=== PATIENT | male | born 1945 | race Caucasian/White ===

== ENCOUNTER 2019-10-14 23:53 | Observation (INO) | payer OTHER, SELFPAY ==
--- NOTE | ~2019-10-14 | XR_ITS ---
EXAMINATION: XR chest 1V portable DATE: 10/15/2019 00:41 INDICATION: Shortness of breath. TECHNIQUE: A single frontal view of the chest was obtained on 2 radiographs. COMPARISON: Chest single view 05/15/2016 FINDINGS: The lungs are hyperexpanded, consistent with chronic obstructive pulmonary disease. No pleu ral effusion or pneumothorax. The heart size is normal. Median sternotomy wires and mediastinal surgi esvin clips are seen, likely from prior coronary artery bypass grafting. There is a left chest wall pac er with leads in the right atrium and right ventricle. There are surgical clips in the abdomen. IMPRESSION: 1. Hyperexpanded lungs, consistent with chronic obstructive pulmonary disease. Reviewed, dictated and finalized at location A.
[2019-10-14 23:55] VITALS: BP 187/84; PULSE 97; RESP 22; O2SAT 100
[2019-10-15] VITALS (14 sets, daily range): BP systolic 106–141; BP diastolic 40–88; PULSE 80–108; RESP 18–20; TEMP 36.3–36.8; O2SAT 96–99; BMI 20.7
--- NOTE | 2019-10-15 00:11 | ECG_ITS ---
Measurements Intervals Virgie Rate: 64 P: 82 HI: 180 QRS: 52 QRSD: 90 T: 120 QT: 306 QTc: 316 Interpretive Statements SINUS RHYTHM VENTRICULAR PREMATURE COMPLEX LOW QRS VOLTAGE IN LIMB LEADS ANTEROSEPTAL INFARCT, AGE INDETERMINATE NONSPECIFIC ST & T-WAVE ABNORMALITY BASELINE ARTIFACT- I, III, AVR, AVL, AVF, V1-V6 ABNORMAL ECG Electronically Signed On 10-15-2019 8:10:28 CDT by Minh Cisneros D.O.
--- NOTE | 2019-10-15 00:12 | ED.SOB ---
HPI - SOB/Dyspnea General Chief Complaint: Shortness of Breath/Dyspnea Stated Complaint: sob Time Seen by Provider: 10/14/19 23:56 History of Present Illness HPI Narrative: 74 yo male w/ COPD BIBEMS for SOB. SOB for the past few days. Acutely worse this evening. Associated with wheezing. Given albuterol and dexamethasone by EMS with minimal improvement. No pain or fever. History limited by clinical condition. Related Data Home Medications Medication Instructions Recorded Confirmed albuterol sulfate INHALATION QID 10/15/19 albuterol sulfate INHALATION TID PRN 10/15/19 amlodipine 5 mg PO DAILY 10/15/19 aspirin 81 mg PO DAILY 10/15/19 10/15/19 budesonide-formoterol [Symbicort] 2 puff INHALATION BID 10/15/19 levothyroxine 62.5 mcg PO DAILY 10/15/19 lorazepam 0.5 mg PO HS 10/15/19 10/15/19 metoprolol tartrate 25 mg PO DAILY 10/15/19 rosuvastatin mg PO DAILY 10/15/19 Allergies Allergy/AdvReac Type Severity Reaction Status Date / Time metronidazole AdvReac Intermediate Confusion Verified 10/15/19 02:46 Review of Systems Review of Systems: ROS unobtainable: Yes unobtainable due to medical condition Constitutional: Constitutional: Denies fever(s) Cardiovascular: Cardiovascular: Denies chest pain Respiratory: Respiratory: Reports dyspnea and Reports wheezing PMFSH Past Medical History Medical History CAD (coronary artery disease) COPD (chronic obstructive pulmonary disease) Hyperlipidemia Hypertension Hypothyroidism Surgical History Surgical History Hx of CABG Family History Family History Father Acute myocardial infarction Sibling Congestive heart failure Hypertension Sibling Chronic obstructive pulmonary disease Sibling Prostate carcinoma Social History Social History Smoking packs per day: 2 Smoking cigarettes per day: 40.0 Years smoked: 47 Smoking pack-years: 94.00 Smoking status: Former smoker Tobacco type: cigarettes Alcohol intake: current Drinks per week: 14 Substance use: never Spiritual care concerns: No Exam Const: General: alert Orientation/consciousness: patient oriented x3 Other: Moderate distress HENMT: Head: normal to inspection Resp: Effort & Inspection: labored and tachypneic Auscultation: wheezes and diminished lung sounds Cardio: Rate: regular rate Rhythm: regular rhythm GI: GI Palp: Yes Soft to palpation and No Tenderness to palpation present (GI) Skin: General skin exam: normal color Neuro: General: patient oriented x3 and moves all extremities Extrem: General: no pedal edema Course Vital Signs Vital signs: Vital Signs Pulse Rate 97 10/14/19 23:55 Respiratory Rate 22 H 10/14/19 23:55 Blood Pressure 187/84 H 10/14/19 23:55 Pulse Oximetry 100 10/14/19 23:55 Pulse Rate 97 10/14/19 23:55 Respiratory Rate 22 H 10/14/19 23:55 Blood Pressure 187/84 H 10/14/19 23:55 Pulse Oximetry 100 10/14/19 23:55 MDM - SOB/Dyspnea MDM Narrative Medical decision making narrative: Moderate improvement with nebulizer and steroids. Still wheezing and working to breath. I will plan to admit for nebs and steroids. Differential Diagnosis Differential diagnosis: Likely acute exacerbation of chronic obstructive airways disease, congestive heart failure and community acquired pneumonia Medical Records Attestation: I reviewed the patient's medical records. Lab Data Attestation: I reviewed the patient's lab results. Discharge Plan Discharge Clinical Impression: COPD exacerbation Patient Disposition: Still a Patient Condition: Stable Interventions: Discharge Disposition Last Done: 10/15/19 02:21 IV Stop Time Documented Last Done: 10/15/19 02:35 Discharge Date/Time: 10/15/19 02:35
[2019-10-15 00:28] LABS: Basophils Percent Auto 0.6 % (0.2-1.2); Eosinophils Absolute Auto 0.2 K/mm3 (0-0.3); Eosinophils Percent Auto 3.3 % (0-4.4); Hematocrit 47.3 % (42.0-52.0); Hemoglobin 15.9 g/dL (14.0-18.0); Immature Granulocyte Absolute 0.02 K/mm3 (0.00-0.031); Immature Granulocyte Percent A 0.3 % (0-0.5); Lymphocytes Absolute Auto 1.19 K/mm3 (0.9-3.2); Lymphocytes Percent Auto 18.7 % (18.3-44.2); Mean Corpuscular HGB Conc 33.6 g/dl (32-36); Mean Corpuscular Hemoglobin 31.3 pg (26-34); Mean Corpuscular Volume 93.1 fl (80-100); Monocytes Absolute Auto 0.5 K/mm3 (0.1-0.6); Monocytes Percent Auto 7.8 % (2.6-8.5); Neutrophils Absolute Auto 4.4 K/mm3 (1.3-6.7); Neutrophils Percent Auto 69.3 % (45.5-73.1); Platelet Count Result 243 k/mm3 (150-375); Red Blood Count 5.08 M/mm3 (4.6-6.20); Red Cell Distribution Width 13.1 % (11.5-14.5); White Blood Count 6.4 K/mm3 (4.5-10.0)
[2019-10-15] MEDS: ALBUTEROL SULFATE NEB 2.5 MG/0.5 ML INH 10 MG INHALATION (00:30)
[2019-10-15] MEDS: IPRATROPIUM BR 0.02% INH SOLN 0.5 MG/2.5 ML VIAL 1 MG INHALATION (00:30)
[2019-10-15] MEDS: MAGNESIUM SULF 2 GM/WATER 50ML 2 GM/50 ML BAG IVPB (00:36)
[2019-10-15] MEDS: NITROGLYCERIN OINTMENT 1 INCH DOSE TRANSDERM (00:36)
[2019-10-15 00:38] LABS: Anion Gap 14.5 mmol/L (7-16); Blood Urea Nitrogen 18 mg/dL (9-20); Calcium 9.3 mg/dL (8.4-10.2); Carbon Dioxide 29 mmol/L (22-30); Chloride 89 mmol/L (98-107); Estimated CRCL calculation 30 ml/min; Estimated Glomerular Filt Rate 42; Glucose 108 mg/dL (75-110); Potassium 4.5 mmol/L (3.4-5.0); Sodium 128 mmol/L (137-145)
--- NOTE | 2019-10-15 02:33 | ADMGEN ---
This patient, Layton Ayala, was admitted to [facility] Surg Room 301-01. Patient/family oriented to hospital policies and general routines including ID bracelet, bed and alarms, visiting hours, pain management, procedures, bathroom and other care routines, personal items, smoking policy, room service/diet, and visiting hours. Valuables list has been completed. Information on how to activate the Rapid Response Team has been discussed. Patient/Family are encouraged to report perceived risks to care and to ask questions if they do not understand what they are told or what they should do.
--- NOTE | 2019-10-15 03:15 | PM.IMHP ---
H&P: HPI History of Present Illness Chief complaint: COPD excerbation Narrative: This is a pleasant 74 year old male with known COPD who presented to the hospital with a complaint of increased shortness of breath, dry cough, and increased wheezing that started yesterday afternoon. He denies any fevers, chills, or chest pain. The patient was evaluated in the ER and treated with steroids, magnesium, and multiple bronchodilators. He states he feels better but felt like he wasn't good enough to go home yet. Routine labs were obtained which demonstrated mild renal failure otherwise unremarkable. He is a previous smoker and quit over 20 years ago. No other complaints. Review of Systems Review of Systems: All systems reviewed & are unremarkable except as noted in HPI and below PMFSH Past Medical History Medical History CAD (coronary artery disease) COPD (chronic obstructive pulmonary disease) Hyperlipidemia Hypertension Hypothyroidism Surgical History Surgical History Hx of CABG Family History Family History Father Acute myocardial infarction Sibling Congestive heart failure Hypertension Sibling Chronic obstructive pulmonary disease Sibling Prostate carcinoma Social History Social History Smoking packs per day: 2 Smoking cigarettes per day: 40.0 Years smoked: 47 Smoking pack-years: 94.00 Smoking status: Former smoker Tobacco type: cigarettes Alcohol intake: current Drinks per week: 14 Substance use: never Spiritual care concerns: No Meds Home Medications and Allergies Home Medications Medication Instructions Recorded Confirmed Type albuterol sulfate 2 puff INHALATION TID PRN 10/15/19 10/15/19 History albuterol sulfate 2.5 mg INHALATION QID 10/15/19 10/15/19 History amlodipine 5 mg PO DAILY 10/15/19 10/15/19 History aspirin 81 mg PO DAILY 10/15/19 10/15/19 History budesonide-formoterol [Symbicort] 2 puff INHALATION BID 10/15/19 10/15/19 History levothyroxine 62.5 mcg PO DAILY 10/15/19 10/15/19 History lorazepam 0.5 mg PO HS 10/15/19 10/15/19 History metoprolol tartrate 25 mg PO DAILY 10/15/19 10/15/19 History rosuvastatin 5 mg PO DAILY 10/15/19 10/15/19 History Allergies Allergy/AdvReac Type Severity Reaction Status Date / Time metronidazole AdvReac Intermediate Confusion Verified 10/15/19 02:46 Vital Signs Vital Signs - 24 hr 10/14/19 23:55 10/15/19 00:31 10/15/19 01:37 Temperature Pulse Rate 97 103 H 108 H Respiratory Rate 22 H 19 19 Blood Pressure 187/84 H Pulse Oximetry 100 10/15/19 02:21 10/15/19 02:33 Temperature 36.6 C 36.8 C Pulse Rate 105 H 101 H Respiratory Rate 20 20 Blood Pressure 141/88 H 141/62 H Pulse Oximetry 99 96 Exam Const: General: cooperative, alert, awake and anxious Nutritional Appearance: well nourished Orientation/consciousness: patient oriented x3 HENMT: Head: normal to inspection General nose exam: Normal external nose present Face and sinus: normal facial exam Mouth: Yes Normal oral and palatal mucosa present and Yes oropharynx normal Eyes: Pupils: Equal, round and reactive pupils present EOM: EOMs intact bilaterally Neck: Neck: supple and no JVD Thyroid: thyroid normal Lymphatic: lymphadenopathy not noted Resp: Effort & Inspection: normal respiratory effort Auscultation: wheezes throughout and diminished lung sounds Cardio: Rate: tachycardic Rhythm: regular rhythm Heart sounds: no murmurs GI: Inspection: normal to inspection Auscultation: normal bowel sounds Skin: General skin exam: normal color and no rashes or lesions noted Neuro: General: patient oriented x3 Cranial nerves: Yes CN's II-XII intact bilaterally and Yes Equal, round and reactive pupils present Speech: normal speech Motor
[2019-10-15] MEDS: SODIUM CHLORIDE 0.9% IV 1,000 ML 100 ML IV CONT (03:44)
[2019-10-15] MEDS: methylPREDNISolone SOD SUCC 125 MG VIAL 60 MG IV PUSH ×4 (05:30→23:40)
[2019-10-15] MEDS: LEVOTHYROXINE SODIUM 12.5 MCG TABLET PO (05:57)
[2019-10-15] MEDS: LEVOTHYROXINE SODIUM 50 MCG TABLET PO (05:57)
[2019-10-15 06:33] LABS: Basophils Percent Auto 0.2 % (0.2-1.2); Eosinophils Absolute Auto 0.2 K/mm3 (0-0.3); Hematocrit 38.2 % (42.0-52.0); Immature Granulocyte Absolute 0.03 K/mm3 (0.00-0.031); Immature Granulocyte Percent A 0.5 % (0-0.5); Lymphocytes Absolute Auto 0.25 K/mm3 (0.9-3.2); Lymphocytes Percent Auto 4.4 % (18.3-44.2); Mean Corpuscular Hemoglobin 31.2 pg (26-34); Mean Corpuscular Volume 91.6 fl (80-100); Mean Platelet Volume 9.1 fl (7.4-10.4); Monocytes Absolute Auto 0.1 K/mm3 (0.1-0.6); Monocytes Percent Auto 1.1 % (2.6-8.5); Neutrophils Absolute Auto 5.2 K/mm3 (1.3-6.7); Neutrophils Percent Auto 90.8 % (45.5-73.1); Platelet Count Result 228 k/mm3 (150-375); Red Blood Count 4.17 M/mm3 (4.6-6.20); Red Cell Distribution Width 12.8 % (11.5-14.5); White Blood Count 5.7 K/mm3 (4.5-10.0)
[2019-10-15 06:48] LABS: Anion Gap 12.5 mmol/L (7-16); Blood Urea Nitrogen 19 mg/dL (9-20); Calcium 8.2 mg/dL (8.4-10.2); Carbon Dioxide 25 mmol/L (22-30); Chloride 92 mmol/L (98-107); Estimated CRCL calculation 47 ml/min; Estimated Glomerular Filt Rate > 60; Glucose 141 mg/dL (75-110); Magnesium 2.3 mg/dL (1.6-2.3); Potassium 4.5 mmol/L (3.4-5.0); Sodium 125 mmol/L (137-145)
[2019-10-15] MEDS: IPRATROPIUM BR 0.02% INH SOLN 0.5 MG/2.5 ML VIAL INHALATION ×3 (07:29→20:28)
[2019-10-15] MEDS: ALBUTEROL SULFATE NEB 2.5 MG/0.5 ML INH 5 MG INHALATION ×3 (07:29→20:28)
[2019-10-15] MEDS: amLODIPine BESYLATE 5 MG TABLET PO (08:20)
[2019-10-15] MEDS: ROSUVASTATIN 5 MG TABLET PO (08:20)
[2019-10-15] MEDS: ASPIRIN 81 MG ENTERIC TABLET PO (08:21)
[2019-10-15] MEDS: METOPROLOL TARTRATE 25 MG TABLET PO (08:21)
[2019-10-15 10:11] LABS: Sodium 123 mmol/L (137-145)
--- NOTE | 2019-10-15 12:21 | PM.IMPN ---
Progress Note: A&P Assessment and Plan (1) COPD exacerbation: Code(s): J44.1 - Chronic obstructive pulmonary disease with (acute) exacerbation Status: Acute Assessment and Plan: SOB improved. He endorses occasional cough with clear sputum. He is maintaining adequate oxygen saturation on room air. Continue IV solumedrol Supplemental O2 as needed to achieve goal of 90% or above continue bronchodilators (2) Hyponatremia: Code(s): E87.1 - Hypo-osmolality and hyponatremia Status: Acute Assessment and Plan: Sodium was low at presentation and has continued to slowly decline. Upon review of prior labs, this appears to be a chronic issue. Patient states this has been ongoing for sometime and has been instructed to increase his dietary sodium intake by his PCP. He typically drinks 2 cups of coffee and 2-4 beers per day. Continue to monitor sodium q4h. Check urine sodium Discontinue IV fluids Consider fluid restriction if no improvement. Transition from heart healthy diet to regular. (3) Acute renal failure: Qualifiers: Acute renal failure type: unspecified Qualified Code(s): N17.9 - Acute kidney failure, unspecified Code(s): N17.9 - Acute kidney failure, unspecified Status: Acute Assessment and Plan: RODNEY suspected due to dehydration. Renal function improved following IV fluids. IV fluids have been d/c. Continue to monitor renal function closely Renally dose medications and avoid nephrotoxic agents (4) Hypertension: Qualifiers: Hypertension type: unspecified Qualified Code(s): I10 - Essential (primary) hypertension Code(s): I10 - Essential (primary) hypertension Status: Chronic Assessment and Plan: BP reviewed and improved. 111/60 this morning. Continue amlodipine and metoprolol. (5) Hypothyroidism: Qualifiers: Hypothyroidism type: unspecified Qualified Code(s): E03.9 - Hypothyroidism, unspecified Code(s): E03.9 - Hypothyroidism, unspecified Status: Chronic Assessment and Plan: Check TSH Continue Levothyroxine (6) Hyperlipidemia: Qualifiers: Hyperlipidemia type: unspecified Qualified Code(s): E78.5 - Hyperlipidemia, unspecified Code(s): E78.5 - Hyperlipidemia, unspecified Status: Chronic Assessment and Plan: Continue rosuvastatin Subjective Date/time seen: 10/15/19 12:21 Interval history: Date of service: 10/15/2019 He reports he is feeling better today. His shortness of breath has improved. He has occasional cough and occasional clear sputum production. He denies wheezing or orthopnea. He is tolerating room air. He denies chest pain or palpitations. He had a BM this morning. He thinks he has been urinating less often but denies dysuria, hematuria, or dark urine. He says today he has drank 2 cups of coffee and 1 glass of orange juice. He has a good appetite. He denies fever, chills, nausea, vomiting, diarrhea, dizziness, lightheadedness, or weakness. He has no additional concerns. Review of Systems Review of Systems: Narrative: A 12 point review of systems was reviewed with pertinent positives and negatives as per HPI. Exam Narrative: Exam Narrative: Mr. Ayala is examined alone today. He is a well nourished 74 year old male who is lying supine in bed. He appears comfortable and is in NARD. HR 97, BP 111/60, RR 20, T 98.1, 96% on room air. Neuro: awake, alert and oriented x4, speech clear, no focal neuro deficits noted HEENMT: normocephalic, atraumatic, EOMI, sclerae anicteric, moist oral mucosa, tongue midline Neck: supple, no lymphadenopathy Respiratory: diminished lung sounds, diffuse post-expiratory wheezes, nonlabored breathing Cardio: regular rate, regular rhythm with S1-S2 Abdomen: flat, nondistended, evidence of scar tissue from old colostomy, normoactive bowel sounds, soft, nontender
[2019-10-15 14:24] LABS: Sodium 125 mmol/L (137-145)
[2019-10-15 15:46] LABS: Creatinine Urine 68.8 mg/dL
[2019-10-15 15:54] LABS: Sodium Urine Random 35 meq/L
[2019-10-15 19:43] LABS: Sodium 125 mmol/L (137-145)
[2019-10-15] MEDS: ACETAMINOPHEN 325 MG TABLET 650 MG PO (20:26)
[2019-10-15] MEDS: LORazepam 0.5 MG TABLET PO (20:26)
[2019-10-15 23:54] LABS: Sodium 124 mmol/L (137-145)
[2019-10-16] VITALS (9 sets, daily range): BP systolic 106–115; BP diastolic 59; PULSE 82–92; RESP 18; TEMP 36.7–37.1; O2SAT 94–99
[2019-10-16] MEDS: IPRATROPIUM BR 0.02% INH SOLN 0.5 MG/2.5 ML VIAL INHALATION ×3 (01:56→13:29)
[2019-10-16] MEDS: ALBUTEROL SULFATE NEB 2.5 MG/0.5 ML INH 5 MG INHALATION ×3 (01:56→13:29)
[2019-10-16] MEDS: LEVOTHYROXINE SODIUM 12.5 MCG TABLET PO (05:32)
[2019-10-16] MEDS: LEVOTHYROXINE SODIUM 50 MCG TABLET PO (05:32)
[2019-10-16] MEDS: methylPREDNISolone SOD SUCC 125 MG VIAL 60 MG IV PUSH ×2 (05:33→11:55)
[2019-10-16 06:25] LABS: Hematocrit 35.1 % (42.0-52.0); Hemoglobin 12.2 g/dL (14.0-18.0); Mean Corpuscular HGB Conc 34.8 g/dl (32-36); Mean Corpuscular Hemoglobin 31.4 pg (26-34); Mean Corpuscular Volume 90.5 fl (80-100); Platelet Count Result 202 k/mm3 (150-375); Red Blood Count 3.88 M/mm3 (4.6-6.20); Red Cell Distribution Width 12.8 % (11.5-14.5); White Blood Count 9.1 K/mm3 (4.5-10.0)
[2019-10-16 06:44] LABS: Anion Gap 11.4 mmol/L (7-16); Blood Urea Nitrogen 20 mg/dL (9-20); Calcium 8.3 mg/dL (8.4-10.2); Carbon Dioxide 24 mmol/L (22-30); Chloride 95 mmol/L (98-107); Estimated CRCL calculation 66 ml/min; Estimated Glomerular Filt Rate > 60; Glucose 155 mg/dL (75-110); Potassium 4.4 mmol/L (3.4-5.0); Sodium 126 mmol/L (137-145)
[2019-10-16] MEDS: ASPIRIN 81 MG ENTERIC TABLET PO (08:42)
[2019-10-16] MEDS: amLODIPine BESYLATE 5 MG TABLET PO (08:43)
[2019-10-16] MEDS: METOPROLOL TARTRATE 25 MG TABLET PO (08:43)
[2019-10-16] MEDS: ROSUVASTATIN 5 MG TABLET PO (08:43)
[2019-10-16 11:01] LABS: Sodium 125 mmol/L (137-145)
--- NOTE | 2019-10-16 14:10 | PM.DS ---
DS: Admitting Diagnosis Admitting Diagnosis Admitting Diagnosis: Chronic obstructive pulmonary disease with (acute) exacerbation DS: Discharge Diagnosis Discharge Diagnosis (1) COPD exacerbation: Code(s): J44.1 - Chronic obstructive pulmonary disease with (acute) exacerbation Status: Acute Assessment and Plan: Started on IV solumedrol and bronchodilators. He maintained adequate oxygenation on room air and did not require supplemental O2 upon admission. SOB improved. He will continue a PO prednisone taper and his inhalers. (2) Hyponatremia: Code(s): E87.1 - Hypo-osmolality and hyponatremia Status: Acute Assessment and Plan: Upon review of prior labs and discussion with PCP, this appears to be a chronic issue. Urine sodium was 35. Sodium levels remained stable upon discontinuation of IV fluids. He was placed on 1500 ml fluid restriction which he will continue. Repeat BMP in 5 days. (3) Acute renal failure: Qualifiers: Acute renal failure type: unspecified Qualified Code(s): N17.9 - Acute kidney failure, unspecified Code(s): N17.9 - Acute kidney failure, unspecified Status: Acute Assessment and Plan: Most likely secondary to dehydration. Renal function improved following IV fluids. Back to baseline. (4) Hypertension: Qualifiers: Hypertension type: unspecified Qualified Code(s): I10 - Essential (primary) hypertension Code(s): I10 - Essential (primary) hypertension Status: Chronic Assessment and Plan: BP was monitored and was stable. Continue amlodipine and metoprolol. (5) Hypothyroidism: Qualifiers: Hypothyroidism type: unspecified Qualified Code(s): E03.9 - Hypothyroidism, unspecified Code(s): E03.9 - Hypothyroidism, unspecified Status: Chronic Assessment and Plan: Continue Levothyroxine. (6) Hyperlipidemia: Qualifiers: Hyperlipidemia type: unspecified Qualified Code(s): E78.5 - Hyperlipidemia, unspecified Code(s): E78.5 - Hyperlipidemia, unspecified Status: Chronic Assessment and Plan: Continue rosuvastatin. DS: Summary Hospital Course Reason for hospitalization: Dyspnea Hospital Course: Date of admission: 10/15/2019 Date of discharge: 10/16/2019 Layton Ayala is a 74 year old male with a history of CAD, HTN, HLD, COPD with former smoking history 94 pack years who presented to the emergency department on 10/15/2019 with complaints of SOB. He noticed he was becoming more short of breath several days prior along with dry cough, and on the evening of presentation his breathing worsened and he began wheezing. At presentation, spO2 100% on 3L, HR 97, RR 22, BP 187/84, WBC 6.4, Na 128, K 4.5, BUn 18, Cr 1.6, and CXR showing hyperexpanded lungs consistent with COPD. He was treated with IV steroids, bronchodilators, and magnesium in the ED. He was admitted to the hospitalist service. His SOB improved significantly. He was tolerating room air. Given his improvement, he was anxious for discharge and was felt to no longer require inpatient care. He was comfortable with returning home. He will continue a steroid taper. He was educated on medication changes and worrisome signs and symptoms for which to return. We also discussed monitoring his fluid intake to help control his sodium levels. He was discharged home in hemodynamically stable condition on 10/16/2019. Status at Discharge Functional status at discharge: independent ambulation Overall status at discharge: patient is progressing back to baseline Time Spent with Patient Time attestation: Total time spent providing and/or coordinating discharge services:38 minutes Time spent: Greater than 30 minutes Exam Narrative: Exam Narrative: Mr. Ayala is examined alone today. He is a well nourished 74 year old male who is lying supine in bed. He appears comfortable and is in NARD. HR 86, BP 115/89, R
== END 2019-10-16 14:43 | disposition home or self-care (01) ==
LOC: ANHED 10-15 02:11 → ANH3MEDSUR 10-15 02:19
PROVIDERS: Physician Assistant; Admitting Provider Family Medicine; Emergency Provider Emergency Medicine; PCP Family Medicine; Visit Provider Internal Medicine
DX: J44.1 Chronic obstructive pulmonary disease with (acute) exacerbation (principal); Z87.891 Personal history of nicotine dependence; I25.10 Atherosclerotic heart disease of native coronary artery without angina pectoris; I10 Essential (primary) hypertension; E03.9 Hypothyroidism, unspecified; E78.5 Hyperlipidemia, unspecified; Z95.1 Presence of aortocoronary bypass graft; N17.9 Acute kidney failure, unspecified; E87.1 Hypo-osmolality and hyponatremia
CPT/HCPCS: 36415; 71045; 80048; 82570; 83735; 84295; 84300; 85025; 85027; 93005; 94640; 96361; 96365; 96375; 96376; 99285; A9270; G0378; J2930; J3475; J7030

== ENCOUNTER 2020-05-23 08:23 | Outpatient (CLI) | payer OTHER, SELFPAY ==
--- NOTE | ~2020-05-23 | CT_ITS ---
EXAMINATION: CT lung screening EXAM DATE: 05/23/2020 09:09 INDICATION: Z87.891 - Personal history of nicotine dependence TECHNIQUE: Spiral low dose CT of the chest without contrast. Axial, coronal and sagittal images were reviewed. The dose-length product (DLP) for this examination was 69.83 mGy-cm. The exposure was ta ilored according to patient size (auto mA exposure control), and iterative reconstruction (ASIR) was used as additional dose reduction technique. There is no prior study for comparison. FINDINGS: Severe emphysema and hyperinflation with narrow cardiac silhouette. There is 3 mm right lo wer lobe nodule image 105. There is calcified left lower lobe granuloma. Tracheobronchial tree is pat ent. There is no mediastinal, hilar or axillary lymphadenopathy. There are no pleural or pericard ial effusions. There is no pneumothorax. There are sternotomy wires, and cardiac/coronary surgica l changes. Correlate with prior history. 2-lead pacemaker/AICD device. There is 1 cm left liver lobe cyst. Left upper quadrant surgical clips. No osteoblastic or osteolytic lesions identified. There a re old left rib fractures. Incidental aberrant right subclavian artery, a congenital variant. IMPRESSION: Lung-RADS category 2, benign appearance or behavior (<1% chance of malignancy); recommend continued LDCT screening in 1 year. Reviewed, dictated and finalized at location A. ICITY MANAGER
== END 2020-05-23 08:24 | disposition home or self-care (01) ==
PROVIDERS: PCP Internal Medicine; Visit Provider Internal Medicine
DX: Z12.2 Encounter for screening for malignant neoplasm of respiratory organs (principal); Z87.891 Personal history of nicotine dependence
CPT/HCPCS: 71271

== ENCOUNTER 2020-05-27 09:09 | Outpatient (CLI) | payer OTHER, SELFPAY ==
--- NOTE | ~2020-05-27 | US_ITS ---
EXAMINATION: US aorta [facility] DATE: 05/27/2020 10:39 INDICATION: Abdominal aortic aneurysm screening. TECHNIQUE: Grayscale, color Doppler, and pulsed Doppler images of the aorta and common iliac arteries were obtained. COMPARISON: CT abdomen 04/23/2005 FINDINGS: The aorta demonstrates a 3.4 cm fusiform juxtarenal aneurysm. The right common iliac artery is normal in caliber. The left common iliac artery is normal in caliber. IMPRESSION: 1. 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 Reviewed, dictated and finalized at location A. ESSION PRINTER
== END 2020-05-27 09:10 | disposition home or self-care (01) ==
PROVIDERS: PCP Internal Medicine; Visit Provider Internal Medicine
DX: Z13.6 Encounter for screening for cardiovascular disorders (principal); Z87.891 Personal history of nicotine dependence; I71.4 Abdominal aortic aneurysm, without rupture
CPT/HCPCS: 76706

== ENCOUNTER → 2021-04-07 00:47 | Outpatient (CLI) | payer OTHER, SELFPAY ==
[2021-04-08 18:17] LABS: SARS-CoV-2 RNA PCR Positive
== END ==
PROVIDERS: PCP Internal Medicine; Visit Provider Specialist
DX: U07.1 COVID-19 (principal)
CPT/HCPCS: C9803; U0003; U0005

== ENCOUNTER 2021-05-26 02:21 | Day surgery (SDC) | payer OTHER, SELFPAY ==
[2021-04-06 14:35] VITALS: BMI 22.4
[2021-05-25 09:16] VITALS: BMI 23.8
[2021-05-26 09:52] VITALS: BP 178/87; PULSE 67; RESP 18; TEMP 36.6; O2SAT 99; BMI 23.8
[2021-05-26 10:14] LABS: Prothrombin Time 12.6 Seconds (11.1-14.7)
[2021-05-26 10:16] LABS: Basophils Percent Auto 0.6 % (0.2-1.2); Eosinophils Absolute Auto 0.2 K/mm3 (0-0.3); Eosinophils Percent Auto 3.4 % (0-4.4); Hematocrit 44.9 % (42.0-52.0); Hemoglobin 15.2 g/dL (14.0-18.0); Immature Granulocyte Absolute 0.01 K/mm3 (0.00-0.031); Immature Granulocyte Percent A 0.2 % (0-0.5); Lymphocytes Absolute Auto 0.97 K/mm3 (0.9-3.2); Lymphocytes Percent Auto 19.4 % (18.3-44.2); Mean Corpuscular HGB Conc 33.9 g/dl (32-36); Mean Corpuscular Volume 97.6 fl (80-100); Monocytes Absolute Auto 0.5 K/mm3 (0.1-0.6); Monocytes Percent Auto 10.2 % (2.6-8.5); Neutrophils Absolute Auto 3.3 K/mm3 (1.3-6.7); Neutrophils Percent Auto 66.2 % (45.5-73.1); Platelet Count Result 243 k/mm3 (150-375); Red Cell Distribution Width 13.4 % (11.5-14.5)
--- NOTE | 2021-05-26 10:36 | WPDMODSED ---
Moderate Sedation Note-Pt Data Patient Data Diagnosis: Sick sinus syndrome with permanent cardiac pacemaker at LISA Coronary artery disease with previous surgical revascularization Present Complaint: None Procedure to be performed/Plan: Pacemaker generator change Allergies Allergy/AdvReac Type Severity Reaction Status Date / Time metronidazole AdvReac Intermediate Confusion Verified 05/26/21 09:31 Home Medications Medication Instructions Recorded Confirmed Type albuterol sulfate 2.5 mg INHALATION QID 10/15/19 05/19/21 History aspirin 81 mg PO DAILY 10/15/19 05/19/21 History metoprolol tartrate 25 mg tablet 25 mg PO DAILY #90 tablet 01/09/21 05/19/21 Rx amlodipine 5 mg tablet 5 mg PO DAILY #90 tablet 02/21/21 05/19/21 Rx mirtazapine 15 mg tablet 15 mg PO QHS #90 tablet 03/03/21 05/19/21 Rx levothyroxine 125 mcg tablet See Rx Instructions .ROUTE 03/20/21 05/19/21 Rx .COMPLEX #45 tablet rosuvastatin 5 mg tablet See Rx Instructions .ROUTE 03/20/21 05/19/21 Rx .COMPLEX #90 tablet mag citrate-potassium citrate 2 cap PO DAILY 04/06/21 05/19/21 History budesonide 160 mcg-glycopyr 9 2 inh INHALATION BID #10.7 g 04/10/21 05/26/21 Rx mcg-formot 4.8 mcg/actuation HFA inhaler albuterol sulfate 90 mcg/actuation 2 puff INHALATION TID PRN #8.5 g 05/10/21 05/26/21 Rx aerosol inhaler Sedation/Anesthesia: No previous sedation/anesthesia problems (including family history). [facility] Past Medical History Medical History CAD (coronary artery disease) Colostomy stenosis COPD (chronic obstructive pulmonary disease) Decreased urine stream Heart attack Hyperlipidemia Hypertension Hypothyroidism Pacemaker Surgical History Surgical History History of bowel resection History of heart bypass surgery Hx of CABG Family History Family History Father Acute myocardial infarction Sibling Congestive heart failure Hypertension Sibling Chronic obstructive pulmonary disease Sibling Prostate carcinoma Mother Cancer Hypertension Grandparent Heart disease Social History Social History Smoking packs per day: 2 Smoking cigarettes per day: 40.0 Years smoked: 47 Smoking pack-years: 94.00 Smoking status: Former smoker Tobacco type: cigarettes Alcohol intake: current Drinks per week: 28 Alcohol use details: Beer Substance use: never Substance use type: does not use Living arrangements: with family Spiritual care concerns: No Mod Sed Physical Exam Physical Exam Pre Procedural Exam: Normal: Appearance, Throat, Airway, Lungs, Heart Size, Heart Rate, Heart Rhythm and Extremities Hours since solid foods: 12 Hours since liquid intake: 12 Mallampati Classification: class II Internal Medicine - PN: Obj Da Vital Signs Vital Signs: Vital Signs - 24 hr 05/26/21 09:52 Temperature 36.6 C Pulse Rate 67 Respiratory Rate 18 Blood Pressure 178/87 H Pulse Oximetry 99 Labs CBC & Chem 7: 05/26/21 09:50 Labs: Laboratory Results - last 24 hr 05/26/21 05/26/21 09:50 09:50 WBC 5.0 RBC 4.60 Hgb 15.2 D Hct 44.9 MCV 97.6 MCH 33.0 MCHC 33.9 RDW 13.4 Plt Count 243 MPV 9.0 Immature Gran % (Auto) 0.2 Neut % (Auto) 66.2 Lymph % (Auto) 19.4 [place] % (Auto) 10.2 H Eos % (Auto) 3.4 Baso % (Auto) 0.6 Lymph # (Auto) 0.97 [place] # (Auto) 0.5 Eos # (Auto) 0.2 Baso # (Auto) 0.0 Abs Immat Gran (auto) 0.01 Absolute Neuts (auto) 3.3 Absolute Nucleated RBC 0.0 Nucleated RBC % 0.0 PT 12.6 INR 1.0 ASA Classification/Sedation ASA Classification/Sedation ASA Class: III Emergent: No Risks: Risks, benefits and alternatives explained and patient/family accepted plan for sedation. Patient re-evaluated immediately
--- NOTE | 2021-05-26 10:43 | PM.IMHP ---
H&P: HPI History of Present Illness Date/Time: 05/26/21 10:43 Chief Complaint: No complaint Narrative: This is a 76-year-old man who has coronary artery disease as well as sick sinus syndrome. He underwent revascularization with a circumflex infection in the remote past. He then presented back in August of 2011 with symptomatic bradycardia, pauses and evidence of sick sinus syndrome. He received a permanent dual-chamber [employer] pacemaker at that time and the device has been functioning well since then. In routine office follow-up the device has been found to be at LISA. His other significant comorbidity is severe COPD for previous history of smoking for close to 50 years. Patient has no complaints this morning is admitted electively for pacemaker generator change. Review of Systems Constitutional: Constitutional: Reports no additional constitutional complaints Eyes: Eyes: Reports no additional eye complaints ENT: Reports system reviewed and no additional complaints, except as documented Cardiovascular: Cardiovascular: Reports no additional cardiovascular complaints Respiratory: Respiratory: Reports dyspnea on exertion Gastrointestinal: Gastrointestinal: Reports no additional gastrointestinal complaints Musculoskeletal: Musculoskeletal: Reports arthralgias Integumentary/Breasts: Skin/Breast: Reports system reviewed and no additional complaints, except as docu Neurologic: Reports system reviewed and no additional complaints, except as documented PMFSH Past Medical History Medical History CAD (coronary artery disease) Colostomy stenosis COPD (chronic obstructive pulmonary disease) Decreased urine stream Heart attack Hyperlipidemia Hypertension Hypothyroidism Pacemaker Surgical History Surgical History History of bowel resection History of heart bypass surgery Hx of CABG Family History Family History Father Acute myocardial infarction Sibling Congestive heart failure Hypertension Sibling Chronic obstructive pulmonary disease Sibling Prostate carcinoma Mother Cancer Hypertension Grandparent Heart disease Social History Social History Smoking packs per day: 2 Smoking cigarettes per day: 40.0 Years smoked: 47 Smoking pack-years: 94.00 Smoking status: Former smoker Tobacco type: cigarettes Alcohol intake: current Drinks per week: 28 Alcohol use details: Beer Substance use: never Substance use type: does not use Living arrangements: with family Spiritual care concerns: No Meds Home Medications and Allergies Home Medications Medication Instructions Recorded Confirmed Type albuterol sulfate 2.5 mg INHALATION QID 10/15/19 05/19/21 History aspirin 81 mg PO DAILY 10/15/19 05/19/21 History metoprolol tartrate 25 mg tablet 25 mg PO DAILY #90 tablet 01/09/21 05/19/21 Rx amlodipine 5 mg tablet 5 mg PO DAILY #90 tablet 02/21/21 05/19/21 Rx mirtazapine 15 mg tablet 15 mg PO QHS #90 tablet 03/03/21 05/19/21 Rx levothyroxine 125 mcg tablet See Rx Instructions .ROUTE 03/20/21 05/19/21 Rx .COMPLEX #45 tablet rosuvastatin 5 mg tablet See Rx Instructions .ROUTE 03/20/21 05/19/21 Rx .COMPLEX #90 tablet mag citrate-potassium citrate 2 cap PO DAILY 04/06/21 05/19/21 History budesonide 160 mcg-glycopyr 9 2 inh INHALATION BID #10.7 g 04/10/21 05/26/21 Rx mcg-formot 4.8 mcg/actuation HFA inhaler albuterol sulfate 90 mcg/actuation 2 puff INHALATION TID PRN #8.5 g 05/10/21 05/26/21 Rx aerosol inhaler Allergies Allergy/AdvReac Type Severity Reaction Status Date / Time metronidazole AdvReac Intermediate Confusion Verified 05/26/21 09:31 Vital Signs Vital Signs - 24 hr 05/26/21 09:52 Temperature 36.6 C Pulse Rate 67 Respiratory Rate 18
--- NOTE | 2021-05-26 11:40 | ECG_ITS ---
Measurements Intervals [place] Rate: 75 P: 113 SC: 244 QRS: -74 QRSD: 86 T: 89 QT: 388 QTc: 436 Interpretive Statements ELECTRONIC ATRIAL PACEMAKER MARKED LEFT AXIS DEVIATION [QRS AXIS < -30] ANTERIOR MYOCARDIAL INFARCTION , OLD COMPARED TO ECG 10/15/2019 00:02:15 LEFT-AXIS DEVIATION NOW PRESENT Electronically Signed On 05-26-2021 15:59:26 ROOMING HOUSE OPERATOR by Gaurav Wheeler M.D.
--- NOTE | 2021-05-26 11:43 | P.PCNCC_ITS ---
Cardiac Cath Procedure Note Date of procedure:: 05/26/21 Performing physician:: Gaurav Wheeler MD Indication:: pacemaker at LISA Brief clinical history:: this is a 76-year-old man with coronary disease and sick sinus syndrome. He has a dual-chamber pacemaker implanted 10 years ago because of symptomatic sick sinus syndrome. The device is at LISA he is admitted today as an outpatient for elective generator change Procedure Procedure performed:: explant depleted pulse generator implant new dual-chamber pulse generator Sedation/Medication given:: fentanyl 25 mg Versed 2 mg Access site:: chronically implanted pacemaker pocket in the left anterior chest wall Estimated blood loss:: 20 CC Procedure note:: patient was brought to the cardiac catheterization lab in postabsorptive state the pacemaker pocket in the left anterior chest wall was prepped and draped in the normal sterile fashion. The patient was then draped and 1% lidocaine was infiltrated in the region of the chronically implanted device. Incision was then made over the device just below the original incision. Electrocautery was used to provide cutaneous hemostasis and the PlasmaBlade was used to dissect the subcutaneous tissue to the level of the fibrous pocket. This was then incised using a Metzenbaum scissors and the device was exposed. Some of the fibrous capsule was excised to facilitate removal of the device. The retention suture was then also cut. Following this the device was removed from the pocket and was found to be visually intact and unremarkable in appearance. The device was disconnected from the implanted leads using the supplied torque wrench. Leads were then connected in new device using the same torque wrench device. The pocket was then irrigated with Ancef infused saline. The entire assembly was then placed back into the pocket which was closed in layers using 3-0 Vicryl in an interrupted fashion the subcutaneous tissue and 4-0 Vicryl in a running subcuticular fashion for the skin. The wound was dressed with a Aquacel dressing patient was taken back to the holding area for post generator change recovery. Procedure was well tolerated and uncomplicated. Findings:: The explanted device is a [employer] dual-chamber pacemaker [id number] serial number [id number]. originally implanted 09/06/2011. The new device is a [employer] dual-chamber pacemaker model PM 2272, serial number [id number]. device is programmed in the DDD mode. Lower rate limit 70 upper rate limit 130. The chronically implanted atrial lead is a [employer] bipolar lead model serial number [id number] the P-waves are sensed at greater than 5 mV threshold 0.5 volts pacing impedance 400 Ohms the chronically implanted ventricular lead is a [employer] bipolar lead model 58 serial number [id number]. the R-waves are sensed at greater than 12 mV threshold is 1.25 volts pacing impedance 540 Ohms. Conclusion:: 1. Successful uncomplicated explantation of depleted permanent pulse generator 2. successful uncomplicated implantation of new permanent [employer] dual-chamber pulse generator for ongoing treatment of sick sinus syndrome is 76-year-old man who also has coronary artery disease. Gaurav Wheeler MD [facility]
[2021-05-26 12:00] VITALS: BP 156/72; PULSE 88; RESP 14; O2SAT 98
[2021-05-26 12:15] VITALS: BP 118/77; PULSE 81; RESP 16; O2SAT 99
[2021-05-26 12:30] VITALS: BP 133/88; PULSE 81; RESP 17; O2SAT 99
[2021-05-26 12:45] VITALS: BP 145/90; PULSE 88; RESP 20; O2SAT 98
== END 2021-05-26 13:20 | disposition home or self-care (01) ==
PROVIDERS: PCP Internal Medicine; Visit Provider Specialist
PROC: 0JPT0PZ Removal of Cardiac Rhythm Related Device from Trunk Subcutaneous Tissue and Fascia, Open Approach (ICD-10-PCS; CPT 33228; principal; 2021-05-26 10:30)
DX: Z45.010 Encounter for checking and testing of cardiac pacemaker pulse generator [battery] (principal); I25.10 Atherosclerotic heart disease of native coronary artery without angina pectoris; J44.9 Chronic obstructive pulmonary disease, unspecified; I10 Essential (primary) hypertension; E78.5 Hyperlipidemia, unspecified; E03.9 Hypothyroidism, unspecified; Z95.1 Presence of aortocoronary bypass graft; Z90.49 Acquired absence of other specified parts of digestive tract; Z87.891 Personal history of nicotine dependence; Z79.51 Long term (current) use of inhaled steroids; Z79.82 Long term (current) use of aspirin
CPT/HCPCS: 33228; 36415; 85025; 85610; C1785; J0690; J2250; J3010; J7040

== ENCOUNTER 2021-07-06 06:16 | Inpatient (IN) | payer OTHER, SELFPAY ==
[2021-07-06] VITALS (50 sets, daily range): BP systolic 122–216; BP diastolic 70–96; PULSE 75–133; RESP 18–30; TEMP 36.3–36.9; O2SAT 92–100; BMI 24.4
--- NOTE | ~2021-07-06 | XR_ITS ---
EXAMINATION: XR abdomen NG/feed tube insert DATE: 07/09/2021 13:10 INDICATION: Nasogastric tube placement. TECHNIQUE: A supine view of the abdomen was obtained. COMPARISON: Abdomen radiograph 04/21/16 FINDINGS: The lower abdomen is excluded. The nasogastric tube tip is in the stomach. The endotracheal tube tip is 5.9 cm above the seth. There are surgical clips in left abdomen. IMPRESSION: 1. Nasogastric tube tip in the stomach. Reviewed, dictated and finalized at location A.
--- NOTE | ~2021-07-06 | XR_ITS ---
EXAMINATION: XR chest 1V portable DATE: 07/09/2021 06:22 INDICATION: Shortness of breath. TECHNIQUE: A single frontal view of the chest was obtained on 2 radiographs. COMPARISON: Chest single view 07/06/2021, chest CT 05/23/2020 FINDINGS: The lungs are hyperexpanded, consistent with emphysema. A calcified left lung nodule is con sistent with old granulomatous disease. No pneumonia, pleural effusion, or pneumothorax. The heart si ze is normal. Median sternotomy wires and mediastinal surgical clips are seen, likely from prior kenna nary artery bypass grafting. There is a left chest wall pacer with leads in the right atrium and righ t ventricle. There is an old healed right rib fracture. IMPRESSION: 1. Severe emphysema. Reviewed, dictated and finalized at location A. IMPRESSION: 1. Severe emphysema.
--- NOTE | ~2021-07-06 | XR_ITS ---
EXAMINATION: XR chest 1V portable EXAM DATE: 07/14/2021 05:57 INDICATION: Resp Failure. TECHNIQUE: Portable AP frontal chest x-ray was obtained. Comparison is made to prior examination from 07/13/2021. FINDINGS: PICC line tip suspected at mid SVC level, adequate. Sternotomy wires are present without fi ndings to suggest sternal dehiscence. There is a dual lead pacemaker/AICD seen with leads projecting over the expected locations of the right atrial appendage and right ventricle obscuring. Endotracheal tube is in position. Feeding tube tip and side-port extends below diaphragm. It is possible that the tip is projecting cep halad toward the gastroesophageal junction but still below the diaphragm. Chronic hyperinflation. No confluent consolidation, pneumothorax or pleural effusion suspected. Cardi omediastinal silhouette is normal. IMPRESSION: 1. Line, tubes in position. 2. Chronic hyperinflation. Reviewed, dictated and finalized at location A.
--- NOTE | ~2021-07-06 | XR_ITS ---
EXAMINATION: XR chest ET placement DATE: 07/09/2021 13:10 INDICATION: Intubation. TECHNIQUE: A single frontal view of the chest was obtained. COMPARISON: Chest single view at 6:07 AM FINDINGS: There are lucencies in the lungs, consistent with emphysema. There is mild atelectasis at t he lung bases. No pleural effusion or pneumothorax. The heart size is normal. Median sternotomy wires and mediastinal surgical clips are seen, likely from prior coronary artery bypass grafting. The endo tracheal tube tip is 4.0 cm above the seth. There is a left chest wall pacer with leads in the righ t atrium and right ventricle. The nasogastric tube tip is in the superior mediastinum. There are old healed right rib fractures. IMPRESSION: 1. Severe emphysema and mild atelectasis at the lung bases. Reviewed, dictated and finalized at location A.
--- NOTE | ~2021-07-06 | CT_ITS ---
EXAMINATION: CT chest high resolution wo co DATE: 07/15/2021 12:39 INDICATION: pneumonia, respiratory failure TECHNIQUE: Computed tomography (CT) of the chest was performed without intravenous contrast. Addition al 3D reconstructions utilizing coronal maximum intensity projection (MIP) were performed. Automated exposure control and iterative reconstruction technique were employed. The dose-length product was 56 0.58 mGy-cm. COMPARISON: 05/23/2020 FINDINGS: Endotracheal tube tip 5.1 cm above the seth. Nasogastric tube coiled in the stomach. Right upper ex tremity peripherally inserted central venous catheter (PICC) tip at the mid superior vena cava. Delia re emphysema. Numerous tiny centrilobular nodules in groundglass opacities in place with tree-in-bud appearance in the left lower lobe and to a significantly lesser degree in the right lower lobe suspic ious for endobronchial spread of disease either aspiration or pneumonia. No pulmonary edema, pleural effusion or pneumothorax. Heart size is normal. Atherosclerotic coronary artery calcifications. No pe ricardial effusion. Dual-lead cardiac pacemaker with lead tips at the right atrial appendage and apex of the right ventricle. Atherosclerotic calcifications along the normal caliber thoracic aorta. 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 No pathologically enlarged thoracic lymp hadenopathy. A few splenic calcifications consistent with old granulomatous disease. The visualized u pper abdomen is otherwise unremarkable. Body wall edema at the bilateral flanks. IMPRESSION: 1. Mild centrilobular disease in the bilateral lower lobes which could be due to aspiration and/or pn eumonia. 2. Severe emphysema. Reviewed, dictated and finalized at location A. IMPRESSION: 1. Mild centrilobular disease in the bilateral lower lobes which could be due t o aspiration and/or pneumonia. 2. Severe emphysema.
--- NOTE | ~2021-07-06 | XR_ITS ---
EXAMINATION: XR abdomen NG/feed tube rechec DATE: 07/13/2021 09:48 INDICATION: Orogastric tube repositioning. TECHNIQUE: A semiupright view of the abdomen was obtained. COMPARISON: Abdomen radiograph at 8:09 AM FINDINGS: The lower abdomen is excluded. There are surgical clips in the abdomen. The nasogastric tub e tip is in the stomach. Median sternotomy wires and mediastinal surgical clips are seen, likely from prior coronary artery bypass grafting. There are pacer wires in right atrium and right ventricle. IMPRESSION: 1. Nasogastric tube tip in the stomach. Reviewed, dictated and finalized at location B.
--- NOTE | ~2021-07-06 | XR_ITS ---
EXAMINATION: XR chest 1V portable DATE: 07/15/2021 06:00 INDICATION: Respiratory failure. COPD exacerbation. TECHNIQUE: frontal view of the chest was obtained. COMPARISON: Chest radiograph dated 07/14/2021 FINDINGS: Endotracheal tube tip 5.5 cm above the seth. Nasogastric tube extends below the left hemidiaphragm with distal tip collimated off the study. Right upper extremity peripherally inserted central venous catheter (PICC) tip at the mid superior vena cava. Lungs are hyperexpanded but clear with no focal airspace opacities, pulmonary edema, pleural effusion or pneumothorax. The cardiomediastinal silhouette is normal. Dual lead pacemaker seen with leads pro jecting over the expected locations of the right atrium and right ventricle. Median sternotomy wir es and mediastinal surgical clips are seen, likely from prior coronary artery bypass grafting. IMPRESSION: 1. No acute cardiopulmonary disease. Reviewed, dictated and finalized at location A.
--- NOTE | ~2021-07-06 | XR_ITS ---
XR chest 1V portable DATE: 07/20/2021 15:06 INDICATION: Shortness of breath TECHNIQUE: Portable AP chest on 07/20/2021 at 1455 hours COMPARISON: 07/19/2021 portable AP chest FINDINGS: Bilateral hyperinflation suggesting COPD. No pulmonary infiltrate or consolidation, pleural effusion or pulmonary vascular congestion or pneumothorax is evident. Normal heart size. Status post sternotomy and coronary artery bypass graft surgery. Left-sided transvenous pacemaker device with right atrial and right ventricular leads. Feeding tube in proximal stomach Right upper extremity PIC catheter tip overlies superior vena cava Diffuse osteopenia. IMPRESSION: Bilateral hyperinflation; no active cardiac pulmonary disease Status post sternotomy/CABG Dual-lead left-sided pacemaker device Bilateral hyperinflation Osteopenia Feeding tube in proximal stomach Right upper cavity PICC catheter at superior vena cava Reviewed, dictated and finalized at location A.
--- NOTE | ~2021-07-06 | XR_ITS ---
EXAMINATION: XR chest 1V portable DATE: 07/19/2021 05:59 INDICATION: Chronic obstructive pulmonary disease exacerbation. TECHNIQUE: A single frontal view of the chest was obtained. COMPARISON: Chest single view 07/18/2021, chest CT 07/15/2021 FINDINGS: The lungs are hyperexpanded with lucencies, consistent with emphysema. There is mild atelec tasis in the lower lung zones. No pleural effusion or pneumothorax. The heart size is normal. Median sternotomy wires and mediastinal surgical clips are seen, likely from prior coronary artery bypass gr afting. There is a left chest wall pacer with leads in the right atrium and right ventricle. A right upper extremity peripherally inserted central venous catheter (PICC) is seen with tip in the superior vena cava. There are old healed right rib fractures. IMPRESSION: 1. Mild atelectasis in the lower lung zones. 2. Severe emphysema. Reviewed, dictated and finalized at location A.
--- NOTE | ~2021-07-06 | XR_ITS ---
EXAMINATION: XR chest 1V portable DATE: 07/16/2021 05:38 INDICATION: Respiratory failure. COPD exacerbation. TECHNIQUE: frontal view of the chest was obtained. COMPARISON: Chest radiograph and CT dated 07/15/2021 FINDINGS: Endotracheal tube tip 5.2 cm above the seth. Nasogastric tube coiled in the body of the stomach. Hyperexpansion of lungs consistent with emphysema better appreciated on prior CT. No focal airspace o pacities, pulmonary edema, pleural effusion or pneumothorax. The cardiomediastinal silhouette is norm al. Median sternotomy wires, ostial markers and mediastinal surgical clips consistent with prior kenna nary artery bypass grafting. Dual lead pacemaker seen with leads projecting over the expected locatio ns of the right atrium and right ventricle. IMPRESSION: 1. Emphysema. 2. The mild centrilobular lung disease evident on prior CT remains indiscernible on plain radiographs . Reviewed, dictated and finalized at location A. IMPRESSION: 1. Emphysema. 2. The mild centrilobular lung disease evident on prior CT remains indiscernibl e on plain radiographs.
--- NOTE | ~2021-07-06 | XR_ITS ---
EXAMINATION: XR fl Dobhoff insert/rad w img DATE: 07/19/2021 12:10 INDICATION: Dysphagia. TECHNIQUE: I placed a nasoenteric tube under fluoroscopic guidance. Fluoroscopy exposure time was 1.3 minutes. The number of images was 1. COMPARISON: None. FINDINGS: The nasoenteric tube tip is in the stomach. IMPRESSION: 1. Fluoroscopy guided nasoenteric tube placement with tip in the stomach. Reviewed, dictated and finalized at location A.
--- NOTE | ~2021-07-06 | XR_ITS ---
EXAMINATION: XR chest 1V portable DATE: 07/18/2021 06:04 INDICATION: Respiratory failure. TECHNIQUE: A single frontal view of the chest was obtained. COMPARISON: Chest single view 07/17/2021 FINDINGS: The lungs are hyperexpanded with lucencies, consistent with emphysema. There are mild airsp toby opacities at the lung bases. No pleural effusion or pneumothorax. The heart size is normal. Media n sternotomy wires and mediastinal surgical clips are seen, likely from prior coronary artery bypass grafting. There is a left chest wall pacer with leads in the right atrium and right ventricle. A righ t upper extremity peripherally inserted central venous catheter (PICC) is seen with tip in the superi or vena cava. IMPRESSION: 1. Mild airspace opacities at the lung bases, likely atelectasis. 2. Severe emphysema. Reviewed, dictated and finalized at location A.
--- NOTE | ~2021-07-06 | XR_ITS ---
EXAMINATION: XR chest 1V portable EXAM DATE: 07/12/2021 05:58 INDICATION: Resp Failure TECHNIQUE: Portable AP frontal chest x-ray was obtained. Comparison is made to prior examination from 07/11/2021. FINDINGS: Right-sided PICC line, again tip overlies 2 cardiac pacemaker leads and is therefore poorl y visualized but heading in expected direction. Endotracheal and nasogastric tubes are adequately pos itioned. Sternotomy wires are present without findings to suggest sternal dehiscence. There is chronic hyperi nflation unchanged with narrow cardiac silhouette. No confluent consolidation, pneumothorax or pleura l effusion suspected. There are no osseous abnormalities identified. IMPRESSION: Chronic hyperinflation. Tubes, line in position. Reviewed, dictated and finalized at location A.
--- NOTE | ~2021-07-06 | XR_ITS ---
EXAMINATION: XR chest 1V portable EXAM DATE: 07/11/2021 05:56 INDICATION: Respiratory failure. TECHNIQUE: Portable AP frontal chest x-ray was obtained. Comparison is made to prior examination from 07/10/2021. FINDINGS: There is a dual lead pacemaker/AICD seen with leads projecting over the expected locations of the right atrial appendage and right ventricle. Sternotomy wires are present without findings to s uggest sternal dehiscence. There is a right-sided PICC line in position. Endotracheal tube in positio n. Chronic hyperinflation unchanged with narrow cardiac silhouette. No confluent consolidation, pneumoth orax or pleural effusion suspected. There are no osseous abnormalities identified. IMPRESSION: Chronic hyperinflation. Tubes, line in position. Reviewed, dictated and finalized at location A.
--- NOTE | ~2021-07-06 | XR_ITS ---
EXAMINATION: XR chest 1V portable EXAM DATE: 07/13/2021 05:39 INDICATION: Resp Failure . TECHNIQUE: Portable AP frontal chest x-ray was obtained. Comparison is made to prior examination from 09/11/2021. FINDINGS: Sternotomy wires are present without findings to suggest sternal dehiscence. There is a afia l lead pacemaker/AICD seen with leads projecting over the expected locations of the right atrial appe ndage and right ventricle obscuring tip of a right-sided PICC line. Endotracheal tube is in position. Feeding tube tip and side-port extends below diaphragm. It is possible that the tip is now projecting cephalad into the gastroesophageal junction. Chronic hyperinflation. No confluent consolidation, pneumothorax or pleural effusion suspected. Cardi omediastinal silhouette is normal. IMPRESSION: 1. Nasogastric tube extending into stomach, tip could be extending back into gastroesophageal juncti on. 2. Chronic hyperinflation. Reviewed, dictated and finalized at location A. IMPRESSION: 1. Nasogastric tube extending into stomach, tip could be extending back into g astroesophageal junction. 2. Chronic hyperinflation.
--- NOTE | ~2021-07-06 | XR_ITS ---
EXAMINATION: XR chest PICC line EXAM DATE: 07/10/2021 11:01 INDICATION: PICC line placement TECHNIQUE: 2 frontal portable chest x-rays were obtained. Compared to prior study from earlier same d ate. FINDINGS: There is a new right-sided PICC line, tip suboptimally visualized due to overlying cardiac pacemaker leads, but likely above the cavoatrial junction, adequate. Endotracheal tube and feeding t ube are in position. There is some chronic hyperinflation with narrow cardiac silhouette. No pneumoth orax or pleural effusion. No confluent consolidation. Sternotomy wires. There are no osseous abnormal ities identified. IMPRESSION: 1. Tubes, right PICC line in position. 2. Chronic hyperinflation. Reviewed, dictated and finalized at location A.
--- NOTE | ~2021-07-06 | XR_ITS ---
EXAMINATION: XR chest 1V portable DATE: 07/17/2021 05:26 INDICATION: Respiratory failure. TECHNIQUE: A single frontal view of the chest was obtained. COMPARISON: Chest single view 07/16/2021, chest CT 07/15/2021 FINDINGS: The lungs are hyperexpanded with lucencies, consistent with emphysema. There are mild airsp toby opacities in left lower lung zone. No pleural effusion or pneumothorax. The heart size is normal. Median sternotomy wires and mediastinal surgical clips are seen, likely from prior coronary artery b ypass grafting. There is a left chest wall pacer with leads in the right atrium and right ventricle. The endotracheal tube tip is 6.6 cm above the seth. The nasogastric tube tip is beyond the inferior margin of the radiograph, but at least to the stomach. A right upper extremity peripherally inserted central venous catheter (PICC) is seen with tip in the superior vena cava. IMPRESSION: 1. Stable mild airspace opacities at left lower lung zone, consistent with atelectasis versus pneumon ia. 2. Severe emphysema. Reviewed, dictated and finalized at location A. IMPRESSION: 1. Stable mild airspace opacities at left lower lung zone, consistent with atel ectasis versus pneumonia. 2. Severe emphysema.
--- NOTE | ~2021-07-06 | XR_ITS ---
EXAMINATION: XR barium swallow modified DATE: 07/19/2021 12:07 INDICATION: Dysphagia. TECHNIQUE: The patient was given barium-containing material of multiple consistencies to swallow by lien kaiser speech pathologist while I performed fluoroscopy. Dose-area product was 2.1 Gy-cm2. 2.1 minutes fluoroscopy time FINDINGS: Oral Stage: Within normal limits Pharyngeal Phase: Reduced laryngeal elevation Reduced laryngeal adduction Significant vallecular residue Laryngeal penetration with suspected aspiration Cervical/Esophageal Stage: Within functional limits IMPRESSION: Modified esophagram findings as above. Please refer to the speech therapy report for spec ific recommendations. Reviewed, dictated and finalized at Location A. Reviewed, dictated and finalized at location A. IMPRESSION: Modified esophagram findings as above. Please refer to the speech t herapy report for specific recommendations.
--- NOTE | ~2021-07-06 | XR_ITS ---
EXAMINATION: XR chest 1V portable INDICATION: Extreme shortness of breath TECHNIQUE: Portable AP chest at 0702 hours COMPARISON: 10/15/2019 FINDINGS: The lungs are hyperinflated but free of acute opacities. There is no pleural effusion or pn eumothorax. Median sternotomy wires and mediastinal surgical clips are seen, likely from prior stephens ry artery bypass grafting. The heart size is normal. A dual-lead cardiac pacemaker of the left chest wall ends with leads in expected locations. There are surgical clips of the left upper quadrant. IMPRESSION: 1. Hyperinflation without acute cardiopulmonary abnormality. Reviewed, dictated and finalized at location A.
--- NOTE | ~2021-07-06 | XR_ITS ---
EXAMINATION: XR abdomen NG/feed tube insert DATE: 07/13/2021 08:20 INDICATION: Orogastric tube placement. TECHNIQUE: An upright view of the abdomen was obtained. COMPARISON: Abdomen radiograph 07/09/2021, chest CT 05/23/2020 FINDINGS: The lower abdomen is excluded. The nasogastric tube tip is in the stomach. There are surgic al clips in the abdomen. There are pacer wires in right atrium and right ventricle. Median sternotomy wires and mediastinal surgical clips are seen, likely from prior coronary artery bypass grafting. IMPRESSION: 1. Nasogastric tube tip in the stomach. Reviewed, dictated and finalized at location B.
--- NOTE | ~2021-07-06 | US_ITS ---
EXAMINATION: US venous doppler UE DATE: 07/14/2021 11:17 INDICATION: Left upper limb swelling. TECHNIQUE: Grayscale images without and with compression and Doppler images of the left upper extremi ty veins were obtained. COMPARISON: None. FINDINGS: The left internal jugular vein, subclavian vein, axillary vein, brachial vein, basilic vein, cephalic vein, radial vein, and ulnar vein are patent. IMPRESSION: 1. Patent left upper extremity veins. No evidence of venous thrombosis. Reviewed, dictated and finalized at location A.
--- NOTE | ~2021-07-06 | XR_ITS ---
EXAMINATION: XR chest 1V portable EXAM DATE: 07/10/2021 06:02 INDICATION: Respiratory failure. TECHNIQUE: Portable AP frontal chest x-ray was obtained. Comparison is made to prior examination from 07/09/2021. FINDINGS: Sternotomy wires are present without findings to suggest sternal dehiscence. There is a afia l lead pacemaker/AICD seen with leads projecting over the expected locations of the right atrial appe ndage and right ventricle. Feeding tube and endotracheal tube are in position. There is chronic hyper inflation. There is no pneumothorax suspected. No confluent consolidation. No sizable pleural effusio n. IMPRESSION: 1. Chronic hyperinflation. 2. No confluent consolidation. 3. Tubes in position. Reviewed, dictated and finalized at location A.
--- NOTE | 2021-07-06 06:22 | ECG_ITS ---
Measurements Intervals [place] Rate: 108 P: 90 MO: 182 QRS: -40 QRSD: 97 T: 83 QT: 319 QTc: 429 Interpretive Statements SINUS TACHYCARDIA MARKED LEFT AXIS DEVIATION [QRS AXIS < -30] ANTEROSEPTAL MYOCARDIAL INFARCTION , OF INDETERMINATE AGE [40+ ms Q WAVE IN V1-V4] ABNORMAL ECG COMPARED TO ECG 05/26/2021 12:19:31 SINUS TACHYCARDIA NOW PRESENT Electronically Signed On 07-06-2021 16:52:19 CDT by Colby Bryson M.D.
--- NOTE | 2021-07-06 06:24 | ED.SOB ---
HPI - SOB/Dyspnea General Chief Complaint: Shortness of Breath/Dyspnea <Ravinder Conley DO - Last Filed: 07/06/21 07:14> Stated Complaint: difficulty breathing <Ravinder Conley DO - Last Filed: 07/06/21 07:14> Time Seen by Provider: 07/06/21 06:22 <Ravinder Conley DO - Last Filed: 07/06/21 07:14> Source: patient and EMS <Ravinder Conley DO - Last Filed: 07/06/21 07:14> RN notes reviewed <Mya Burns MD - Last Filed: 07/06/21 16:08> Mode of arrival: EMS <Ravinder Conley DO - Last Filed: 07/06/21 07:14> Limitations: no limitations <Ravinder Conley DO - Last Filed: 07/06/21 07:14> History of Present Illness HPI Narrative: 76-year-old male presents to the emergency room by EMS secondary to severe shortness of breath. He got underlying history of COPD. States he has had just a mild cough the last couple days but woke up during the night extremely short of breath and could not get relief when he had to call 911. Patient has extensive medical history including hypertension, four-vessel coronary artery bypass graft secondary coronary artery disease, recent generator change for his pacemaker, as well as COPD. Quit smoking 22 years ago. He did not get vaccinated for COVID but states he tested positive for COVID in March 2021. He does not wear oxygen at home and when EMS picked him up his O2 saturation was 90%. Patient was given 10 mg of Decadron by EMS. They attempted to give him a breathing treatment but he could not tolerate it. <Ravinder Conley DO - Last Filed: 07/06/21 07:14> Related Data Home Medications: Home Medications Medication Instructions Recorded Confirmed aspirin 81 mg PO DAILY 10/15/19 07/06/21 mag citrate-potassium citrate 2 cap PO DAILY 04/06/21 07/06/21 levothyroxine 62.5 mcg PO DAILY 07/06/21 07/06/21 rosuvastatin 5 mg PO DAILY 07/06/21 07/06/21 <Ravinder Conley DO - Last Filed: 07/06/21 07:14> Allergies/Adverse Reactions: Allergies Allergy/AdvReac Type Severity Reaction Status Date / Time metronidazole AdvReac Intermediate Confusion Verified 05/26/21 09:31 <Ravinder Conley DO - Last Filed: 07/06/21 07:14> Review of Systems Review of Systems: CONSTITUTIONAL: Denies fever, chills, or sweats. EYES: Denies visual changes, redness, or discharge. ENT: Denies rhinorrhea, congestion, sore throat, or otalgia. CARDIOVASCULAR: Denies chest pain, palpitations, or edema. RESPIRATORY: Patient is noted be extremely short of breath with a cough GASTROINTESTINAL: Denies abdominal pain, nausea, vomiting, or diarrhea. GENITOURINARY: Denies dysuria or hematuria. SKIN: Denies rash or itching. MUSCULOSKELETAL: Denies back pain, joint pain, or myalgia. NEUROLOGIC: Denies headache, numbness, or weakness. PSYCHIATRIC: Denies anxiety or depression. <Ravinder Conley DO - Last Filed: 07/06/21 07:14> [facility] Past Medical History Medical History: Medical History CAD (coronary artery disease) Colostomy stenosis COPD (chronic obstructive pulmonary disease) Decreased urine stream Heart attack Hyperlipidemia Hypertension Hypothyroidism Pacemaker <Ravinder Conley DO - Last Filed: 07/06/21 07:14> Surgical History Surgical History: Surgical History History of bowel resection History of heart bypass surgery Hx of CABG <Ravinder Conley DO - Last Filed: 07/06/21 07:14> Family History Family History: Family History Father Acute myocardial infarction Sibling Congestive heart failure Hypertension Sibling Chronic obstructive pulmonary disease Sibling Prostate carcinoma Mother Cancer Hypertension Grandparent Heart disease <Ravinder Conley DO - Last Filed: 07/06/21 07:14> Social History Social History: Social History (Reviewed 07/06/21
[2021-07-06] MEDS: ALBUTEROL SULFATE NEB 2.5 MG/0.5 ML INH INHALATION (06:28)
[2021-07-06] MEDS: IPRATROPIUM BR 0.02% INH SOLN 0.5 MG/2.5 ML VIAL INHALATION ×3 (06:28→20:28)
[2021-07-06 06:40] LABS: Basophils Percent Auto 0.2 % (0.2-1.2); Eosinophils Percent Auto 0.7 % (0-4.4); Hematocrit 41.7 % (42.0-52.0); Hemoglobin 14.3 g/dL (14.0-18.0); Immature Granulocyte Absolute 0.02 K/mm3 (0.00-0.031); Immature Granulocyte Percent A 0.4 % (0-0.5); Lymphocytes Absolute Auto 1.17 K/mm3 (0.9-3.2); Lymphocytes Percent Auto 20.7 % (18.3-44.2); Mean Corpuscular HGB Conc 34.3 g/dl (32-36); Mean Corpuscular Hemoglobin 32.1 pg (26-34); Mean Corpuscular Volume 93.7 fl (80-100); Mean Platelet Volume 8.9 fl (7.4-10.4); Monocytes Absolute Auto 0.4 K/mm3 (0.1-0.6); Monocytes Percent Auto 7.1 % (2.6-8.5); Neutrophils Percent Auto 70.9 % (45.5-73.1); Platelet Count Result 185 k/mm3 (150-375); Red Blood Count 4.45 M/mm3 (4.6-6.20); Red Cell Distribution Width 12.8 % (11.5-14.5); White Blood Count 5.7 K/mm3 (4.5-10.0)
[2021-07-06] MEDS: ALBUTEROL SULFATE NEB 2.5 MG/0.5 ML INH 10 MG INHALATION (06:42)
[2021-07-06 06:44] LABS: Alanine Aminotransferase 29 U/L (4-50); Albumin Level 4.2 g/dL (3.5-5.1); Alkaline Phosphatase 65 U/L (38-126); Anion Gap 8 mmol/L (8-16); Aspartate Amino Transferase 44 U/L (17-59); Bilirubin,Total 0.7 mg/dL (0.2-1.3); Blood Urea Nitrogen 16 mg/dL (9-20); Calcium 8.3 mg/dL (8.4-10.2); Carbon Dioxide 27 mmol/L (22-30); Chloride 91 mmol/L (98-107); Estimated CRCL calculation 70 ml/min; Estimated Glomerular Filt Rate > 60; Glucose 110 mg/dL (65-110); Potassium 3.9 mmol/L (3.4-5.0); Sodium 126 mmol/L (137-145)
[2021-07-06 06:57] LABS: NT Pro B Type Natriuretic Pept 287 pg/mL (5-100); Troponin I < 0.012 ng/mL (0.000-0.034)
--- NOTE | 2021-07-06 07:26 | PC.NURSE ---
pt working hard for air, c/o dyspnea. provider to room pt to go on BIPAP
[2021-07-06 07:31] LABS: Lactic Acid Reflex 0.8 mmol/L (0.7-2.1)
[2021-07-06 07:32] LABS: Alveolar/Arterial O2 Gradient 47.8 mmHg; Base Excess ABG -0.9 mEq/l (+/-2.0); Carboxyhemoglobin 0.9 % THb (0-2.0); Fractional Inspired Oxygen 40 %; HCO3 ABG 26.3 mEq/l (22.0-26.0); Oxygen Content ABG 20.6 %vol (16.0-22.0); Oxyhemoglobin 97.9 % THb (90.0-100.0); PCO2 ABG 53.8 mmHg (35.0-45.0); PO2 ABG 175.5 mmHg (80.0-100.0); PO2 FiO2 Ratio Arterial Blood 4.39 %; Reduced Hemoglobin 1.2 %THb (0-5.0); Total Hemoglobin 14.7 g/dL (12.0-18.0); pH ABG 7.307 (7.350-7.450)
[2021-07-06 07:33] LABS: Device OTHER DEVICE; Modified Allen's Test Pass; Site Drawn RIGHT RADIAL
[2021-07-06] MEDS: SODIUM CHLORIDE 0.9% IV 1,000 ML 999 ML IV CONT (07:50)
[2021-07-06 09:30] LABS: SARS-CoV-2 RNA PCR Negative
--- NOTE | 2021-07-06 09:58 | ADMGEN ---
This patient, Layton Ayala, was admitted to IMU Room 209-01. Patient/family oriented to hospital policies and general routines including ID bracelet, bed and alarms, visiting hours, pain management, procedures, bathroom and other care routines, personal items, smoking policy, room service/diet, and visiting hours. Information on how to activate the Rapid Response Team has been discussed. Patient/Family are encouraged to report perceived risks to care and to ask questions if they do not understand what they are told or what they should do.
[2021-07-06] MEDS: methylPREDNISolone SOD SUCC 125 MG VIAL 60 MG IV PUSH ×4 (10:05→23:35)
[2021-07-06] MEDS: SODIUM CHLORIDE 0.9% IV 1,000 ML 125 ML IV CONT ×2 (11:10→23:35)
--- NOTE | 2021-07-06 13:49 | PM.IMHP ---
H&P: HPI History of Present Illness Date/Time: 07/06/21 13:49 Chief Complaint: Shortness of breath Narrative: Patient is a 76-year-old male with a past medical history of COPD, mi, CABG, hyperlipidemia, hypertension who presented to the ED with complaints of shortness of breath. Patient stated that he had watches grandson and his grandson came off the bus with a cold 1 day. He said it all started off with a cough however has seem to be worsening over the last couple days. Patient stated that he has had increasing wheezing is, cough with changes in sputum production and shortness of breath. Patient stated that he does not use any oxygen at home. Patient stated that he did try to uses inhalers however they seem to help but not as much as he needed. Sputum is still clear however it is a lot more. He did state this morning when he coughed up something for the ER that it was cloudy in nature. He has also been having night sweats however his temperature at home has been 97.8. Patient does state that he feels better since he was put on the BiPAP. Denies any chest pain, fevers or chills, nausea, vomiting, diarrhea, constipation, urinary issues, numbness or tingling. Patient is being admitted to the hospital service and observation. Review of Systems Review of Systems: All systems reviewed & are unremarkable except as noted in HPI and below PMFSH Past Medical History Medical History CAD (coronary artery disease) Colostomy stenosis COPD (chronic obstructive pulmonary disease) Decreased urine stream Heart attack Hyperlipidemia Hypertension Hypothyroidism Pacemaker Surgical History Surgical History History of bowel resection History of heart bypass surgery Hx of CABG Family History Family History Father Acute myocardial infarction Sibling Congestive heart failure Hypertension Sibling Chronic obstructive pulmonary disease Sibling Prostate carcinoma Mother Cancer Hypertension Grandparent Heart disease Social History Social History Social History: Patient lives the who will be his surrogate. Patient is wishes to be a full code and has advance directives on the chart. He worked as a [employer] for 50 years. He did state that he had better 1 time however got rid of those. Seems as if the patient is a heavy drinker roughly 3-4 beers a day. And he also stated he quit smoking in 1999. Smoking packs per day: 2 Smoking cigarettes per day: 40.0 Years smoked: 47 Smoking pack-years: 94.00 Smoking status: Former smoker Tobacco type: cigarettes Alcohol intake: current Drinks per week: 28 Alcohol use details: Beer Substance use: never Substance use type: does not use Living arrangements: with family Occupation/Education: retired Additional occupation/education comments: [employer] Gender identity (if verbalized by the patient): Female Sexual Orientation (if Verbalized by the Patient): Straight or Heterosexual Spiritual care concerns: No Agree to blood products: Yes Meds Home Medications and Allergies Home Medications Medication Instructions Recorded Confirmed Type aspirin 81 mg PO DAILY 10/15/19 07/06/21 History amlodipine 5 mg tablet 5 mg PO DAILY #90 tablet 02/21/21 07/06/21 Rx mirtazapine 15 mg tablet 15 mg PO QHS #90 tablet 03/03/21 07/06/21 Rx mag citrate-potassium citrate 2 cap PO DAILY 04/06/21 07/06/21 History budesonide 160 mcg-glycopyr 9 2 inh INHALATION BID #10.7 g 04/10/21 07/06/21 Rx mcg-formot 4.8 mcg/actuation HFA inhaler albuterol sulfate 90 mcg/actuation 2 puff INHALATION TID PRN #8.5 g 06/27/21 07/06/21 Rx aerosol inhaler metoprolol tartrate 25 mg tablet 25 mg PO DAILY #90 tablet 07/05/21 07/06/21 Rx levothyroxine 62.5 mcg PO
[2021-07-06] MEDS: FLUTICASONE/UMECLIDIN/VILANTER 100-62.5-25 MCG ELLIPTA 1 PUFF INHALATION (14:22)
[2021-07-06] MEDS: ALPRAZolam (*CRX) 0.125 MG TABLET PO (15:32)
[2021-07-06] MEDS: ROSUVASTATIN 5 MG TABLET PO (15:32)
[2021-07-06] MEDS: amLODIPine BESYLATE 5 MG TABLET PO (15:33)
[2021-07-06] MEDS: FOLIC ACID 1 MG TABLET PO (15:33)
[2021-07-06] MEDS: ASPIRIN 81 MG ENTERIC TABLET PO (15:33)
[2021-07-06] MEDS: THIAMINE HCL 100 MG TABLET PO (15:33)
[2021-07-06] MEDS: METOPROLOL TARTRATE 25 MG TABLET PO (15:33)
[2021-07-06 16:43] LABS: NT Pro B Type Natriuretic Pept 358 pg/mL (5-100)
[2021-07-06] MEDS: chlordiazePOXIDE (*CRX) 25 MG CAPSULE PO (17:38)
[2021-07-06] MEDS: MIRTAZAPINE 15 MG TABLET PO (20:03)
[2021-07-07] VITALS (30 sets, daily range): BP systolic 128–176; BP diastolic 71–80; PULSE 75–122; RESP 19–30; TEMP 36–36.6; O2SAT 92–100
[2021-07-07] MEDS: IPRATROPIUM BR 0.02% INH SOLN 0.5 MG/2.5 ML VIAL INHALATION ×6 (02:15→23:19)
[2021-07-07] MEDS: methylPREDNISolone SOD SUCC 125 MG VIAL 60 MG IV PUSH ×2 (05:45→13:09)
[2021-07-07] MEDS: LEVOTHYROXINE SODIUM 12.5 MCG TABLET PO (05:45)
[2021-07-07] MEDS: LEVOTHYROXINE SODIUM 50 MCG TABLET PO (05:45)
[2021-07-07 06:01] LABS: Alanine Aminotransferase 27 U/L (4-50); Albumin Level 3.6 g/dL (3.5-5.1); Alkaline Phosphatase 48 U/L (38-126); Anion Gap 5 mmol/L (8-16); Aspartate Amino Transferase 40 U/L (17-59); Bilirubin,Total 0.4 mg/dL (0.2-1.3); Blood Urea Nitrogen 14 mg/dL (9-20); Carbon Dioxide 28 mmol/L (22-30); Chloride 98 mmol/L (98-107); Estimated CRCL calculation 81 ml/min; Estimated Glomerular Filt Rate > 60; Glucose 144 mg/dL (65-110); Magnesium 2.1 mg/dL (1.6-2.3); Potassium 4.3 mmol/L (3.4-5.0); Sodium 131 mmol/L (137-145)
[2021-07-07 06:05] LABS: Hematocrit 39.7 % (42.0-52.0); Hemoglobin 12.8 g/dL (14.0-18.0); Immature Granulocyte Absolute 0.02 K/mm3 (0.00-0.031); Immature Granulocyte Percent A 0.5 % (0-0.5); Lymphocytes Absolute Auto 0.26 K/mm3 (0.9-3.2); Lymphocytes Percent Auto 6.4 % (18.3-44.2); Mean Corpuscular HGB Conc 32.2 g/dl (32-36); Mean Corpuscular Hemoglobin 31.8 pg (26-34); Mean Corpuscular Volume 98.5 fl (80-100); Mean Platelet Volume 8.9 fl (7.4-10.4); Monocytes Absolute Auto 0.1 K/mm3 (0.1-0.6); Monocytes Percent Auto 3.2 % (2.6-8.5); Neutrophils Absolute Auto 3.7 K/mm3 (1.3-6.7); Neutrophils Percent Auto 89.9 % (45.5-73.1); Platelet Count Result 191 k/mm3 (150-375); Red Blood Count 4.03 M/mm3 (4.6-6.20); Red Cell Distribution Width 12.8 % (11.5-14.5); White Blood Count 4.1 K/mm3 (4.5-10.0)
--- NOTE | 2021-07-07 09:00 | P.PNIM_ITS ---
Progress Note: A&P Assessment and Plan (1) Acute respiratory failure with hypoxia and hypercapnia: Code(s): J96.01 - Acute respiratory failure with hypoxia; J96.02 - Acute respiratory failure with hypercapnia Status: Acute Assessment and Plan: * Patient with severe shortness of breath with tripoding and inability to complete full sentences * ABG shows 7.31/54/175 on 40% BiPAP; COVID and Influenza negative * Chest x-ray shows hyperinflation without acute cardio pulmonary abnormality * Suspect related to COPD exacerbation but seems he has chronic LI as well. * Currently on BiPAP 14/ rate of 18 * Not tolerating coming off BiPAP at this time * Titrate oxygen to maintain a saturation greater than 90%; Trend SpO2 * Continue Neb treatments, steroids and abx. * Pulmonary consult (2) COPD exacerbation: Code(s): J44.1 - Chronic obstructive pulmonary disease with (acute) exacerbation Status: Acute Assessment and Plan: * BiPAP to ordered * Chest x-ray shows hyperinflation without acute cardiopulmonary abnormality * WBC remains normal; BCx NGTD. Sputum pending. * Increased sputum production so abx started as azithromycin and ceftriaxone * Continue neb treatments and steroids * as above (3) Hyponatremia: Code(s): E87.1 - Hypo-osmolality and hyponatremia Status: Acute Assessment and Plan: * Sodium 126 upon arrival * Could be secondary to his alcohol intake or related to lung disease or dehydration * NaCl at 125ml/hr. * Na better today at 131. * Continue IV fluids since essentially NPO but decrease rate. (4) Hypertension: Qualifiers: Hypertension type: unspecified Qualified Code(s): I10 - Essential (primary) hypertension Code(s): I10 - Essential (primary) hypertension Status: Chronic Assessment and Plan: * BP reviewed on 07/07 * BP elevated at times * Continue home amlodipine 5mg PO daily, metoprolol 25mg PO daily * Adjust therapy as indicated (5) Hyperlipidemia: Qualifiers: Hyperlipidemia type: unspecified Qualified Code(s): E78.5 - Hyperlipidemia, unspecified Code(s): E78.5 - Hyperlipidemia, unspecified Status: Chronic Assessment and Plan: * LFTs normal * Continue home rosuvastatin (6) Alcohol use: Code(s): Z72.89 - Other problems related to lifestyle Status: Acute Assessment and Plan: * CIWA protocol in place with score mostly 0-1 * Continue Thiamine and folic acid * Continue Librium prn for withdrawal and add anxiety; stop Xanax * Ativan IV available for acute breakthroughs (7) DVT prophylaxis: Code(s): Z29.9 - Encounter for prophylactic measures, unspecified Status: Acute Assessment and Plan: Lovenox Subjective Date/time seen: 07/07/21 09:00 Interval history: 76yo male with COPD, CAD and HTn here for for SOB and found to have acute respiratory failure. Patient was seen with respiratory therapist. Patient feels better with the BiPAP in place. He feels his cough is looser. It is still productive of white sputum. He denies fever. He has no history of sleep apnea. He is not on home oxygen or BiPAP. He denies chest pain, shortness of breath, nausea or vomiting. He does state that he was disoriented last night about 10-15 minutes when he awoke with the mask off. He did have a ?panic attack? requiring steven odiazepines. He states he was in a panic because he had to void and was concerned about incontinence. The BiPAP was replaced. [place]
--- NOTE | 2021-07-07 09:00 | PM.IMPN ---
Progress Note: A&P Assessment and Plan (1) Acute respiratory failure with hypoxia and hypercapnia: Code(s): J96.01 - Acute respiratory failure with hypoxia; J96.02 - Acute respiratory failure with hypercapnia Status: Acute Assessment and Plan: Patient with severe shortness of breath with tripoding and inability to complete full sentences ABG shows 7.31/54/175 on 40% BiPAP; COVID and Influenza negative Chest x-ray shows hyperinflation without acute cardio pulmonary abnormality Suspect related to COPD exacerbation but seems he has chronic LI as well. Currently on BiPAP / rate of 18 Not tolerating coming off BiPAP at this time Titrate oxygen to maintain a saturation greater than 90%; Trend SpO2 Continue Neb treatments, steroids and abx. Pulmonary consult (2) COPD exacerbation: Code(s): J44.1 - Chronic obstructive pulmonary disease with (acute) exacerbation Status: Acute Assessment and Plan: BiPAP to ordered Chest x-ray shows hyperinflation without acute cardiopulmonary abnormality WBC remains normal; BCx NGTD. Sputum pending. Increased sputum production so abx started as azithromycin and ceftriaxone Continue neb treatments and steroids as above (3) Hyponatremia: Code(s): E87.1 - Hypo-osmolality and hyponatremia Status: Acute Assessment and Plan: Sodium 126 upon arrival Could be secondary to his alcohol intake or related to lung disease or dehydration NaCl at 125ml/hr. Na better today at 131. Continue IV fluids since essentially NPO but decrease rate. (4) Hypertension: Qualifiers: Hypertension type: unspecified Qualified Code(s): I10 - Essential (primary) hypertension Code(s): I10 - Essential (primary) hypertension Status: Chronic Assessment and Plan: BP reviewed on 07/07 BP elevated at times Continue home amlodipine 5mg PO daily, metoprolol 25mg PO daily Adjust therapy as indicated (5) Hyperlipidemia: Qualifiers: Hyperlipidemia type: unspecified Qualified Code(s): E78.5 - Hyperlipidemia, unspecified Code(s): E78.5 - Hyperlipidemia, unspecified Status: Chronic Assessment and Plan: LFTs normal Continue home rosuvastatin (6) Alcohol use: Code(s): Z72.89 - Other problems related to lifestyle Status: Acute Assessment and Plan: CIWA protocol in place with score mostly 0-1 Continue Thiamine and folic acid Continue Librium prn for withdrawal and add anxiety; stop Xanax Ativan IV available for acute breakthroughs (7) DVT prophylaxis: Code(s): Z29.9 - Encounter for prophylactic measures, unspecified Status: Acute Assessment and Plan: Lovenox Subjective Date/time seen: 07/07/21 09:00 Interval history: 76yo male with COPD, CAD and HTn here for for SOB and found to have acute respiratory failure. Patient was seen with respiratory therapist. Patient feels better with the BiPAP in place. He feels his cough is looser. It is still productive of white sputum. He denies fever. He has no history of sleep apnea. He is not on home oxygen or BiPAP. He denies chest pain, shortness of breath, nausea or vomiting. He does state that he was disoriented last night about 10-15 minutes when he awoke with the mask off. He did have a ?panic attack? requiring benzodiazepines. He states he was in a panic because he had to void and was concerned about incontinence. The BiPAP was replaced. Patient did well otherwise overnight. He has not been vaccinated against COVID. He did not have influenza vaccine this year. He was COVID positive in March 2021 but states he was asymptomatic. Patient states that he has trouble showering at home because of shortness of breath. It appears he has shortness of breath this with mild activity chronically. Patient wishes to be full code Exam Narrative: AF 97.8 176/79 95 27 100% BiPAP
[2021-07-07] MEDS: ASPIRIN 81 MG ENTERIC TABLET PO (09:23)
[2021-07-07] MEDS: amLODIPine BESYLATE 5 MG TABLET PO (09:23)
[2021-07-07] MEDS: ENOXAPARIN 40 MG/0.4 ML SYRINGE SUB-Q (09:23)
[2021-07-07] MEDS: ROSUVASTATIN 5 MG TABLET PO (09:23)
[2021-07-07] MEDS: THIAMINE HCL 100 MG TABLET PO (09:24)
[2021-07-07] MEDS: METOPROLOL TARTRATE 25 MG TABLET PO (09:24)
[2021-07-07] MEDS: FOLIC ACID 1 MG TABLET PO (09:24)
[2021-07-07] MEDS: SODIUM CHLORIDE 0.9% IV 1,000 ML 70 ML IV CONT (13:09)
[2021-07-07] MEDS: LORazepam INJ (*CRX) 2 MG/ML VIAL 1 MG IV PUSH (14:14)
--- NOTE | 2021-07-07 16:13 | PM.CNPUL ---
Assessment and Plan Assessment and plan (1) Acute respiratory failure with hypoxia and hypercapnia: Code(s): J96.01 - Acute respiratory failure with hypoxia; J96.02 - Acute respiratory failure with hypercapnia <Em Felix MD - Last Filed: 07/07/21 18:17> Status: Acute <Em Felix MD - Last Filed: 07/07/21 18:17> Assessment and Plan: He was admitted 07/06 with increased shortness of breath, acute hypercapnia, on 8 L/min O2 with adequate oxygenation. He is using BiPAP now to help with work of breathing. He is able to maintain his airway staying open using the BiPAP more easily than using nasal cannula. Dr Skinner saw that the patient had wheezing earlier today when the BiPAP was removed, and the patient, more alert at the time, asked to be placed on it again which stabilized his breathing. With his alcohol withdrawal, he is at risk for worsening mental status, and with this, he may not be able to leave the mask on. He is requiring constant supervision to leave his mask in place and to keep him from trying to get out of bed. He does not use O2 at home, so this is new. <Em Felix MD - Last Filed: 07/07/21 18:17> (2) COPD exacerbation: Code(s): J44.1 - Chronic obstructive pulmonary disease with (acute) exacerbation <Em Felix MD - Last Filed: 07/07/21 18:17> Status: Acute <Em Felix MD - Last Filed: 07/07/21 18:17> Assessment and Plan: He does not have an infiltrate, does not fever, wbc is 4.1. He is on controller medication at home, [facility] with 3 long acting medications: budesonide / formoterol / glycopyrrolate. He needs additional follow up after discharge. Stop ipratropium, already on a LAMA in the [facility]. Change steroid dose, solumedrol 40 mg IV Q 12 hours; continue bronchodilator wiht albuterol nebulized scheduled Q 4 hours. He is not a smoker any longer. <Em Felix MD - Last Filed: 07/07/21 18:17> (3) Alcohol withdrawal: Code(s): F10.239 - Alcohol dependence with withdrawal, unspecified <Em Felix MD - Last Filed: 07/07/21 18:17> Status: Acute <Em Felix MD - Last Filed: 07/07/21 18:17> Assessment and Plan: Last beer was Wed night, almost 2 days ago. He drinks daily, says 2-3 beers a day, says more. He drinks heavily, is having agitation, tremors, confusion, hallucinations, trying to take off BiPAP mask, trying to get out of bed, talking to himslef. Will transfer to ICU, start Precedex drip, IV thiamine, stop po Librium. Continue to monitor CIWA score. <Em Felix MD - Last Filed: 07/07/21 18:17> Additional Plan I stalked with his nurse Christine. This patient is at risk for respiratory deterioration and seizures with DTs. I spoke with Dr Fagan who agrees that he is appropriate for ICU transfer. Also, Dr Skinner and I discussed this patient's condition. I completed the ICU transfer and med reconciliation. <Em Felix MD - Last Filed: 07/07/21 18:17> History of Present Illness History of Present Illness Consult date: 07/07/21 <Em Felix MD - Last Filed: 07/07/21 18:17> 07/07/21 <Matias Skinner MD - Last Filed: 07/07/21 18:06> Requesting physician: Matias Skinner MD <Em Felix MD - Last Filed: 07/07/21 18:17> Chief complaint: COPD Exacerbation, Acute Respiratory Failure w/ Hy <Em Felix MD - Last Filed: 07/07/21 18:17> Narrative: NEW: Layton Ayala is a 76 year old man with COPD admitted through the ED yesterday with severe shortness of breath. His Harika is at the bedside and provides history because the patient his having alcohol withdrawal and is agitated. He has COPD, uses Breztri prescribed by his
[2021-07-07] MEDS: dexmedeTOMIDine 400 MCG/100 ML 400 MCG/100 ML BAG IV CONT (17:56)
[2021-07-07] MEDS: LEVALBUTEROL NEB 1.25 MG/3 ML 0.63 MG INHALATION ×2 (19:21→23:19)
[2021-07-07] MEDS: FUROSEMIDE INJ 40 MG/4 ML VIAL 20 MG IV PUSH (20:22)
[2021-07-07] MEDS: methylPREDNISolone SOD SUCC 40 MG VIAL IV PUSH (20:26)
[2021-07-08] VITALS (40 sets, daily range): BP systolic 98–196; BP diastolic 55–96; PULSE 77–110; RESP 16–28; TEMP 36.1–36.6; O2SAT 95–100
--- NOTE | 2021-07-08 | ECHO_ITS ---
Patient Info Name: Layton Ayala Age: 76 years : 1945 Gender: Male Ht: 67 in Wt: 150 lbs BSA: 1.80 m2 HR: 77 bpm BP: 142 / 90 mmHg Heart Rhythm: Sinus Rhythm Technical Quality: Poor Exam Date: 07/08/2021 9:32 AM Exam Location: [facility] Pulmonary Patient Status: Inpatient Admit Date: 07/07/2021 Staff Ordering Physician: John Fagan MD Supervisor Rice Milling: Bell Walker RDCS Attending Provider: Jesu Thompson MD Exam Type: CA echo dop color flow w con Study Info Indications J96.91 - Respiratory failure, unspecified with hypoxia Complete two-dimensional, color flow and Doppler transthoracic echocardiogram is performed with contrast to opacify the left ventricle and to improve the deliniation of the left ventricle endocardial borders. Contrast/Agitated Saline Contrast/Ag. Saline: Definity Amount: 5.50 ml Reason for Poor Study: patient body habitus Summary 1. Left ventricular chamber dimension is normal. 2. Left ventricular systolic function is normal, estimated at 60-65%. 3. There is no increased left ventricular wall thickness. 4. The left ventricular diastolic function is abnormal. 5. Right ventricular chamber dimension is severely enlarged. 6. Right ventricular systolic function is reduced. 7. Linear artifact in right ventricle suggestive of catheter(s), pacemaker lead(s), or ICD lead(s). 8. Left atrial chamber dimension is mildly enlarged. 9. Right atrial chamber dimension is mildly enlarged. 10. There is mild mitral valve regurgitation. 11. There is mild tricuspid valve regurgitation. Left Ventricle Left ventricular chamber dimension is normal. Left ventricular systolic function is normal, estimated at 60-65%. There is no increased left ventricular wall thickness. The left ventricular diastolic function is abnormal. Right Ventricle Right ventricular chamber dimension is severely enlarged. Right ventricular systolic function is reduced. Linear artifact in right ventricle suggestive of catheter(s), pacemaker lead(s), or ICD lead(s). Left Atria Left atrial chamber dimension is mildly enlarged. Right Atria Right atrial chamber dimension is mildly enlarged. Atrial Septum Intact interatrial septum visualized by color flow imaging. Aortic Valve The aortic valve is not well visualized. There is mild aortic valve sclerosis. There is no aortic valve stenosis. There is trace aortic valve regurgitation. Pulmonic Valve The pulmonic valve is normal. There is no pulmonic valve stenosis. Mitral Valve The mitral valve has normal leaflets. There is no mitral valve stenosis. There is mild mitral valve regurgitation. Tricuspid Valve The tricuspid valve leaflets are normal. There is no significant tricuspid valve stenosis. There is mild tricuspid valve regurgitation. No pulmonary hypertension, estimated pulmonary arterial systolic pressure is 31 mmHg. Pericardium/Pleural The pericardium appears normal. There is no pericardial effusion. Inferior Vena Cava Dilated inferior vena cava with >50% collapse upon inspiration consistent with elevated right atrial pressure, 10 mmHg. Aorta The aortic root size at the sinus of Valsalva is normal. Left Ventricular Outflow Tract Name Value Normal LVOT Do
[2021-07-08] MEDS: LORazepam INJ (*CRX) 2 MG/ML VIAL 1 MG IV PUSH (01:42)
[2021-07-08] MEDS: LEVALBUTEROL NEB 1.25 MG/3 ML 0.63 MG INHALATION ×5 (04:08→20:00)
[2021-07-08] MEDS: IPRATROPIUM BR 0.02% INH SOLN 0.5 MG/2.5 ML VIAL INHALATION ×5 (04:08→20:00)
[2021-07-08 05:00] LABS: Eosinophils Percent Auto 0.1 % (0-4.4); Hematocrit 39.6 % (42.0-52.0); Hemoglobin 12.6 g/dL (14.0-18.0); Immature Granulocyte Absolute 0.05 K/mm3 (0.00-0.031); Immature Granulocyte Percent A 0.5 % (0-0.5); Lymphocytes Absolute Auto 0.35 K/mm3 (0.9-3.2); Lymphocytes Percent Auto 3.5 % (18.3-44.2); Mean Corpuscular HGB Conc 31.8 g/dl (32-36); Mean Corpuscular Hemoglobin 31.7 pg (26-34); Mean Corpuscular Volume 99.7 fl (80-100); Mean Platelet Volume 8.7 fl (7.4-10.4); Monocytes Absolute Auto 0.4 K/mm3 (0.1-0.6); Monocytes Percent Auto 3.8 % (2.6-8.5); Neutrophils Absolute Auto 9.3 K/mm3 (1.3-6.7); Neutrophils Percent Auto 92.1 % (45.5-73.1); Platelet Count Result 206 k/mm3 (150-375); Red Blood Count 3.97 M/mm3 (4.6-6.20); Red Cell Distribution Width 12.7 % (11.5-14.5); White Blood Count 10.1 K/mm3 (4.5-10.0)
[2021-07-08 05:25] LABS: Albumin Level 3.6 g/dL (3.5-5.1); Anion Gap 7 mmol/L (8-16); Blood Urea Nitrogen 25 mg/dL (9-20); Calcium 7.9 mg/dL (8.4-10.2); Carbon Dioxide 27 mmol/L (22-30); Chloride 98 mmol/L (98-107); Estimated CRCL calculation 62 ml/min; Estimated Glomerular Filt Rate > 60; Glucose 148 mg/dL (65-110); Phosphorus 3.7 mg/dL (2.5-4.5); Potassium 4.1 mmol/L (3.4-5.0); Sodium 132 mmol/L (137-145)
--- NOTE | 2021-07-08 08:11 | WPDCNINT ---
Assessment and Plan Assessment and plan (1) Acute respiratory failure with hypoxia and hypercapnia: Code(s): J96.01 - Acute respiratory failure with hypoxia; J96.02 - Acute respiratory failure with hypercapnia Status: Acute Assessment and Plan: Secondary to acute exacerbation of COPD Continue BiPAP at this time at 14/6. Decrease FiO2 to 30% Chest x-ray reviewed He received a dose of Lasix yesterday will hold further diuretics at I do suspect congestive heart failure to be the etiology Check echocardiogram Continue steroids bronchodilators He is also on empiric antibiotics in the form of Rocephin and azithromycin which will be continued Check ABG Decrease but continue Precedex at this time for Depending on his ABG results, once patient is more awake today, will try to give him a break from BiPAP Blood and sputum cultures have been sent and are pending COVID PCR was negative (2) COPD exacerbation: Code(s): J44.1 - Chronic obstructive pulmonary disease with (acute) exacerbation Status: Acute Assessment and Plan: See above (3) Chronic hyponatremia: Code(s): E87.1 - Hypo-osmolality and hyponatremia Status: Acute Assessment and Plan: Sodium improved Patient on IV fluids at cautious rate as he has decreased p.o. intake at this time Monitor sodium and intake/output Check TSH (4) Alcohol withdrawal: Code(s): F10.239 - Alcohol dependence with withdrawal, unspecified Status: Acute Assessment and Plan: Patient was transferred yesterday due to alcohol withdrawal which was worsening his respiratory failure Librium was discontinued and patient was started on Precedex infusion along with p.r.n. Ativan At this time patient is fairly sedated and I will pause Precedex infusion. Will titrate depending on his response Continue p.r.n. Ativan with does depending on CIWA score Continue thiamine folic acid (5) Hypertension: Qualifiers: Hypertension type: unspecified Qualified Code(s): I10 - Essential (primary) hypertension Code(s): I10 - Essential (primary) hypertension Status: Chronic Assessment and Plan: Continue metoprolol but hold Norvasc (6) CAD (coronary artery disease): Qualifiers: Coronary Disease-Associated Artery/Lesion type: [place] artery [place] vs. transplanted heart: [place] heart Associated angina: without angina Qualified Code(s): I25.10 - Atherosclerotic heart disease of [place] coronary artery without angina pectoris Code(s): I25.10 - Atherosclerotic heart disease of [place] coronary artery without angina pectoris Status: Acute Assessment and Plan: EKG reviewed Continue aspirin beta-shannan and statin Check echocardiogram His troponin was negative on presentation Additional Plan DVT prophylaxis -Lovenox Nutrition -currently NPO Code Status - Full Code Total Critical Care Time - 32 minutes Due to a high probability of clinically significant, life threatening deterioration, the patient required my highest level of preparedness to intervene emergently and I personally spent this critical care time directly and personally managing the patient. This critical care time included obtaining a history; examining the patient; pulse oximetry; ordering and review of studies; arranging urgent treatment with development of a management plan; evaluation of patient's response to treatment; frequent reassessment; and discussions with other providers. It was exclusive of separately billable procedures and treating other patients and teaching time. Please see Assessment and Plan section and the rest of the note for further information on patient assessment and treatment Clearing Supervisor Consult Note Consult date: 07/08/21 HPI: Layton Ayala is a 76 year old male with COPD admitted through the ED on 07/06 with severe shortness of breath. History obtained from chart and Physician sign out. Pt on BiPAP, sedated and unable
[2021-07-08] MEDS: PERFLUTREN LIPID MICROSPHERES 1.5 ML VIAL DILUTED TO 10 ML TOTAL VOLUME IV PUSH (08:19)
[2021-07-08] MEDS: ENOXAPARIN 40 MG/0.4 ML SYRINGE SUB-Q (08:35)
[2021-07-08] MEDS: methylPREDNISolone SOD SUCC 40 MG VIAL IV PUSH ×2 (08:35→20:44)
[2021-07-08] MEDS: THIAMINE HCL 200 MG/2 ML VIAL 100 MG IV PUSH (08:35)
[2021-07-08] MEDS: dexmedeTOMIDine 400 MCG/100 ML 400 MCG/100 ML BAG 6.97 MCG IV CONT (08:36)
--- NOTE | 2021-07-08 09:01 | PM.IMPN ---
Progress Note: A&P Assessment and Plan (1) Acute respiratory failure with hypoxia and hypercapnia: Code(s): J96.01 - Acute respiratory failure with hypoxia; J96.02 - Acute respiratory failure with hypercapnia Status: Acute Assessment and Plan: Continue bipap and wean as tolerated Continue steroids and bronchodilators (2) COPD exacerbation: Code(s): J44.1 - Chronic obstructive pulmonary disease with (acute) exacerbation Status: Acute Assessment and Plan: Continue steroids and bronchodilators (3) Chronic hyponatremia: Code(s): E87.1 - Hypo-osmolality and hyponatremia Status: Acute Assessment and Plan: 07/08 Na improved to 132 (4) Alcohol withdrawal: Code(s): F10.239 - Alcohol dependence with withdrawal, unspecified Status: Acute Assessment and Plan: Titrate precedex based upon w/d sx's Continue p.r.n. Ativan with does depending on CIWA score Continue thiamine, folic acid (5) Hypertension: Qualifiers: Hypertension type: unspecified Qualified Code(s): I10 - Essential (primary) hypertension Code(s): I10 - Essential (primary) hypertension Status: Chronic Assessment and Plan: Continue metoprolol, hold Norvasc (6) CAD (coronary artery disease): Qualifiers: Coronary Disease-Associated Artery/Lesion type: [place] artery [place] vs. transplanted heart: [place] heart Associated angina: without angina Qualified Code(s): I25.10 - Atherosclerotic heart disease of [place] coronary artery without angina pectoris Code(s): I25.10 - Atherosclerotic heart disease of [place] coronary artery without angina pectoris Status: Acute Assessment and Plan: Continue aspirin beta-shannan and statin Subjective Date/time seen: 07/08/21 09:01 Interval history: 07/08: Sedated on precedex. Tolerating bipap. Review of Systems Review of Systems: ROS unobtainable: Yes unobtainable due to medical condition Exam Narrative: General: Pt is on BiPAP, sedated with Precedex, opens his eyes to tactile stiimuli HEENT: PERRL, sclerae nonicteric Lungs/Chest: Trachea central decreased breath sounds bilaterally with decreased air movement, No crackles or wheezing. Cardiac: RRR. Normal S1 S2. No murmurs Abdomen: Normal bowel sounds.. Soft. NT. ND. Extremities: No clubbing, cyanosis or edema. Warm : Byrnes in place Neurologic: He is fairly drowsy, opens eyes on stimulation but does not follow any commands, moves all 4 extremities spontaneously Skin: No Rash Objective Data Vital Signs Vital Signs: Vital Signs - 24 hr 07/07/21 09:08 07/07/21 09:09 07/07/21 10:00 Temperature Pulse Rate 100 100 94 Respiratory Rate 24 H 19 Blood Pressure Pulse Oximetry 99 07/07/21 11:57 07/07/21 12:00 07/07/21 13:28 Temperature 97.8 F Pulse Rate 78 75 82 Respiratory Rate 19 21 H Blood Pressure 154/73 H Pulse Oximetry 100 100 99 07/07/21 14:00 07/07/21 16:00 07/07/21 16:17 Temperature 96.8 F L Pulse Rate 88 89 88 Respiratory Rate 24 H Blood Pressure 148/79 H Pulse Oximetry 100 100 07/07/21 17:13 07/07/21 17:14 07/07/21 17:56 Temperature Pulse Rate 101 H 101 H 101 H Respiratory Rate 30 H 30 H 25 H Blood Pressure Pulse Oximetry 99 07/07/21 18:00 07/07/21 18:14 07/07/21 18:54 Temperature Pulse Rate 101 H 99 98 Respiratory Rate 22 H 23 H Blood Pressure Pulse Oximetry 99 07/07/21 19:24 07/07/21 19:34 07/07/21 20:00 Temperature 97.6 F Pulse Rate 96 96 122 H Respiratory Rate 26 H 26 H 22 H Blood Pressure 154/80 H Pulse Oximetry 100 92 07/07/21 21:52 07/07/21 21:56 07/07/21 23:05 Temperature Pulse Rate 80 80 84 Respiratory Rate 20 22 H 22 H Blood Pressure 128/71 Pulse Oximetry 99 99 07/07/21 23:15 07/08/21 00:00 07/08/21 01:44 Temperature 98 F Pulse Rate 84 100 110 H Respiratory Rate 22 H 18 24 H Blood Pressure 114/60 Pulse Oxime
[2021-07-08 09:11] LABS: Alveolar/Arterial O2 Gradient 64.1 mmHg; Fractional Inspired Oxygen 30 %; HCO3 ABG 26.8 mEq/l (22.0-26.0); Oxygen Content ABG 17.8 %vol (16.0-22.0); Oxygen Saturation ABG 95.9 % (95.0-100.0); PCO2 ABG 52.9 mmHg (35.0-45.0); PO2 ABG 87.6 mmHg (80.0-100.0); PO2 FiO2 Ratio Arterial Blood 2.92 %; Total Hemoglobin 13.3 g/dL (12.0-18.0); pH ABG 7.323 (7.350-7.450)
[2021-07-08 09:14] LABS: Device BIPAP; Modified Allen's Test Pass; Site Drawn RIGHT RADIAL
[2021-07-08 09:15] LABS: Expiratory Pressure 6 cmH2O; Inspiratory Pressure 14 cmH2O
[2021-07-08] MEDS: SODIUM CHLORIDE 0.9% IV 1,000 ML 70 ML IV CONT (11:01)
[2021-07-08] MEDS: FLUTICASONE/UMECLIDIN/VILANTER 100-62.5-25 MCG ELLIPTA 1 PUFF INHALATION (12:17)
[2021-07-08] MEDS: FOLIC ACID 1 MG TABLET PO (13:28)
[2021-07-08] MEDS: METOPROLOL TARTRATE 25 MG TABLET PO (13:28)
[2021-07-08] MEDS: ASPIRIN 81 MG ENTERIC TABLET PO (13:28)
--- NOTE | 2021-07-08 14:05 | PM.PNPUL ---
Progress Note: A&P Assessment and Plan (1) Acute respiratory failure with hypoxia and hypercapnia: Code(s): J96.01 - Acute respiratory failure with hypoxia; J96.02 - Acute respiratory failure with hypercapnia Status: Acute Assessment and Plan: His O2 need is lower; he does not use supplemental O2 at home. ABG is better compensated, pH 7.32/52.9/87.6/26.8/95.9% on BiPAP 14/6, 30%. No change in recommendations. 07/08- Tolerating having BiPAP off, Nasal Cannula 3 L/min, still with light sedation with Precedex. With it off, he was too agitated. 07/07 - transferred to ICU for alcohol withdrawal and need for continuous BiPAP; started on Precedex 07/06- admitted with increased shortness of breath, acute hypercapnia, on 8 L/min O2 with adequate oxygenation. He is using BiPAP (2) COPD exacerbation: Code(s): J44.1 - Chronic obstructive pulmonary disease with (acute) exacerbation Status: Acute Assessment and Plan: He does not have an infiltrate, does not fever, wbc is now increased to 10.1 K. This is a low grade leukocytosis, may reflect stress and steroids. He is on controller medication at home, Guero with 3 long acting medications: budesonide / formoterol / glycopyrrolate. More follow up after discharge. Continue bronchodilator therapy with albuterol nebulized scheduled Q 4 hours. He is not a smoker any longer. (3) Alcohol withdrawal: Code(s): F10.239 - Alcohol dependence with withdrawal, unspecified Status: Acute Assessment and Plan: Last beer was Sat, almost 3 days ago. He drinks daily, says 2-3 beers a day, and his says it is significantly more. Was having agitation, tremors, confusion, hallucinations, trying to take off BiPAP mask, trying to get out of bed, talking to himself. This improved with Precedex drip now at a low dose 0.4 mcg/kg/hour; IV thiamine. Continue to monitor CIWA score. Subjective Date/time seen: 07/08/21 14:05 This 71 year old man is seen in a follow up visit in ICU Bed 7 after transfer here yesterday with alcohol withdrawal, COPD exacerbation and acute on chronic hypercapnic hypoxemic respiratory failure. He feels better wearing BiPAP compared to not wearing it. He was taken off at 1:30 p.m. today, and he is tolerating using nasal cannula at 3 L/min, saturation 96%. HE still requires Precedex 0.4 mcg/kg/hour, a low dose, to control alcohol withdrawal and agitation. He is more calm today, however he is not talking. Review of Systems Review of Systems: ROS unobtainable: Yes unobtainable due to medical condition Exam Narrative: GEN: Mildly agitated, resting at a 45* angle in bed, not hallucinating. He is nasal cannula at 3 L/min. CHEST: Equal air entry, symmetric excursion, decreased breath sounds, no wheezing CV: Regular S1S2 no m/g/r. 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 ABD : (+) bowel sounds Extremities : no clubbing, cyanosis, or edema PSYCH: lightly sedated with Precedex, not answering questions. Objective Data Vital Signs Vital Signs: Vital Signs - 24 hr 07/07/21 16:00 07/07/21 16:17 07/07/21 17:13 Temperature 36.0 C L Pulse Rate 89 88 101 H Respiratory Rate 24 H 30 H Blood Pressure 148/79 H Pulse Oximetry 100 100 99 07/07/21 17:14 07/07/21 17:56 07/07/21 18:00 Temperature Pulse Rate 101 H 101 H 101 H Respiratory Rate 30 H 25 H Blood Pressure Pulse Oximetry 07/07/21 18:14 07/07/21 18:54 07/07/21 19:24 Temperature Pulse Rate 99 98 96 Respiratory Rate 22 H 23 H 26 H Blood Pressure Pulse Oximetry 99 100 07/07/21 19:34 07/07/21 20:00 07/07/21 21:52 Temperature 36.4 C Pulse Rate 96 122 H 80 Respiratory Rate 26 H 22 H 20 Blood Pressure 154/80 H 128/71 Pulse Oximetry
[2021-07-08] MEDS: dexmedeTOMIDine 400 MCG/100 ML 400 MCG/100 ML BAG 12.2 MCG IV CONT (23:49)
[2021-07-09] VITALS (41 sets, daily range): BP systolic 82–198; BP diastolic 59–98; PULSE 75–104; RESP 11–22; TEMP 35.7–37.3; O2SAT 95–100
[2021-07-09] MEDS: IPRATROPIUM BR 0.02% INH SOLN 0.5 MG/2.5 ML VIAL INHALATION ×6 (00:11→19:38)
[2021-07-09] MEDS: LEVALBUTEROL NEB 1.25 MG/3 ML 0.63 MG INHALATION ×6 (00:12→19:38)
[2021-07-09] MEDS: SODIUM CHLORIDE 0.9% IV 1,000 ML 70 ML IV CONT ×2 (00:17→13:39)
[2021-07-09 03:57] LABS: Hematocrit 40.7 % (42.0-52.0); Hemoglobin 12.9 g/dL (14.0-18.0); Mean Corpuscular HGB Conc 31.7 g/dl (32-36); Mean Platelet Volume 8.6 fl (7.4-10.4); Platelet Count Result 193 k/mm3 (150-375); Red Blood Count 4.03 M/mm3 (4.6-6.20); Red Cell Distribution Width 12.9 % (11.5-14.5); White Blood Count 8.2 K/mm3 (4.5-10.0)
[2021-07-09 04:24] LABS: Alanine Aminotransferase 31 U/L (4-50); Albumin Level 3.4 g/dL (3.5-5.1); Alkaline Phosphatase 47 U/L (38-126); Anion Gap 5 mmol/L (8-16); Aspartate Amino Transferase 46 U/L (17-59); Bilirubin,Total 0.3 mg/dL (0.2-1.3); Blood Urea Nitrogen 34 mg/dL (9-20); Calcium 7.8 mg/dL (8.4-10.2); Carbon Dioxide 28 mmol/L (22-30); Chloride 100 mmol/L (98-107); Estimated CRCL calculation 70 ml/min; Estimated Glomerular Filt Rate > 60; Glucose 128 mg/dL (65-110); Magnesium 2.4 mg/dL (1.6-2.3); Potassium 4.9 mmol/L (3.4-5.0); Sodium 133 mmol/L (137-145)
[2021-07-09 04:51] LABS: Alveolar/Arterial O2 Gradient 70.4 mmHg; Base Excess ABG -0.8 mEq/l (+/-2.0); Carboxyhemoglobin 0.3 % THb (0-2.0); Fractional Inspired Oxygen 35 %; HCO3 ABG 29.2 mEq/l (22.0-26.0); Methemoglobin ABG 0.2 %THb (0-1.5); Oxygen Content ABG 18.8 %vol (16.0-22.0); Oxygen Saturation ABG 94.9 % (95.0-100.0); Oxyhemoglobin 95.3 % THb (90.0-100.0); PO2 ABG 91.7 mmHg (80.0-100.0); PO2 FiO2 Ratio Arterial Blood 2.62 %; Reduced Hemoglobin 4.2 %THb (0-5.0)
[2021-07-09 04:54] LABS: Device NON-INVASIVE VENT; Modified Allen's Test Pass; PCO2 ABG 75.2 mmHg (35.0-45.0); Site Drawn RIGHT RADIAL; pH ABG 7.207 (7.350-7.450)
[2021-07-09 04:58] LABS: Non-Invasive Expiratory Pressure 6 CMH2O; Non-Invasive Inspiratory Pressure 14 CMH2O; Non-Invasive Vent Rate 18 /MIN
[2021-07-09] MEDS: dexmedeTOMIDine 400 MCG/100 ML 400 MCG/100 ML BAG 12.2 MCG IV CONT (05:58)
[2021-07-09 07:16] LABS: Alveolar/Arterial O2 Gradient 60.3 mmHg; Base Excess ABG 1.5 mEq/l (+/-2.0); Carboxyhemoglobin 0.3 % THb (0-2.0); Fractional Inspired Oxygen 35 %; HCO3 ABG 30.1 mEq/l (22.0-26.0); Methemoglobin ABG 0.3 %THb (0-1.5); Oxygen Content ABG 18.2 %vol (16.0-22.0); Oxygen Saturation ABG 97.3 % (95.0-100.0); Oxyhemoglobin 96.6 % THb (90.0-100.0); PO2 ABG 111.2 mmHg (80.0-100.0); PO2 FiO2 Ratio Arterial Blood 3.18 %; Reduced Hemoglobin 2.8 %THb (0-5.0); Total Hemoglobin 13.3 g/dL (12.0-18.0)
[2021-07-09 07:21] LABS: Device NON-INVASIVE VENT; PCO2 ABG 67.1 mmHg (35.0-45.0); Site Drawn RIGHT BRACHIAL
[2021-07-09 07:22] LABS: Non-Invasive Expiratory Pressure 5 CMH2O; Non-Invasive Vent Rate 20 /MIN
[2021-07-09] MEDS: THIAMINE HCL 200 MG/2 ML VIAL 100 MG IV PUSH (08:31)
[2021-07-09] MEDS: ENOXAPARIN 40 MG/0.4 ML SYRINGE SUB-Q (08:31)
[2021-07-09] MEDS: methylPREDNISolone SOD SUCC 40 MG VIAL IV PUSH ×2 (08:31→20:45)
--- NOTE | 2021-07-09 08:33 | WPDINTPN ---
Progress Note: A&P Assessment and Plan (1) Acute respiratory failure with hypoxia and hypercapnia: Code(s): J96.01 - Acute respiratory failure with hypoxia; J96.02 - Acute respiratory failure with hypercapnia Status: Acute Assessment and Plan: Secondary to acute exacerbation of COPD ABG this morning showed worsening hypercarbia and respiratory acidosis BiPAP was changed to AVAPS and repeat ABG was improved. I have decreased FiO2 down to 30% Chest x-ray reviewed shows severe emphysema Decrease Precedex drip to avoid over-sedation He continues to be a risk for requiring intubation and mechanical ventilation. Will continue to the monitor in ICU He received a dose of Lasix yesterday will hold further diuretics at I do suspect congestive heart failure to be the etiology Echocardiogram reviewed Continue steroids andbronchodilators He is also on empiric antibiotics in the form of Rocephin and azithromycin which will be continued Blood and sputum cultures have been sent and are negative for now COVID PCR was negative (2) COPD exacerbation: Code(s): J44.1 - Chronic obstructive pulmonary disease with (acute) exacerbation Status: Acute Assessment and Plan: See above (3) Chronic hyponatremia: Code(s): E87.1 - Hypo-osmolality and hyponatremia Status: Acute Assessment and Plan: Sodium improved Patient on IV fluids at cautious rate as he has decreased p.o. intake at this time Monitor sodium and intake/output Check TSH (4) Alcohol withdrawal: Code(s): F10.239 - Alcohol dependence with withdrawal, unspecified Status: Acute Assessment and Plan: Patient was transferred yesterday due to alcohol withdrawal which was worsening his respiratory failure Librium was discontinued and patient was started on Precedex infusion along with p.r.n. Ativan At this time patient is fairly sedated and I will decreased Precedex infusion. Will titrate depending on his response Continue p.r.n. Ativan with does depending on CIWA score Continue thiamine folic acid (5) Hypertension: Qualifiers: Hypertension type: unspecified Qualified Code(s): I10 - Essential (primary) hypertension Code(s): I10 - Essential (primary) hypertension Status: Chronic Assessment and Plan: Continue metoprolol but hold Norvasc (6) CAD (coronary artery disease): Qualifiers: Coronary Disease-Associated Artery/Lesion type: [place] artery [place] vs. transplanted heart: [place] heart Associated angina: without angina Qualified Code(s): I25.10 - Atherosclerotic heart disease of [place] coronary artery without angina pectoris Code(s): I25.10 - Atherosclerotic heart disease of [place] coronary artery without angina pectoris Status: Acute Assessment and Plan: EKG reviewed Continue aspirin beta-shannan and statin His troponin was negative on presentation echo Summary 1. Left ventricular chamber dimension is normal. 2. Left ventricular systolic function is normal, estimated at 60-65%. 3. There is no increased left ventricular wall thickness. 4. The left ventricular diastolic function is abnormal. 5. Right ventricular chamber dimension is severely enlarged. 6. Right ventricular systolic function is reduced. 7. Linear artifact in right ventricle suggestive of catheter(s), pacemaker lead(s), or ICD lead(s). 8. Left atrial chamber dimension is mildly enlarged. 9. Right atrial chamber dimension is mildly enlarged. 10. There is mild mitral valve regurgitation. 11. There is mild tricuspid valve regurgitation. Additional Plan DVT prophylaxis -Lovenox Nutrition -currently NPO Code Status - Full Code Total Critical Care Time - 30 minutes Due to a high probability of clinically significant, life threatening deterioration, the patient required my highest level of preparedness to intervene emergently and I personally spent this critical care time di
--- NOTE | 2021-07-09 08:59 | PM.IMPN ---
Progress Note: A&P Assessment and Plan (1) Acute respiratory failure with hypoxia and hypercapnia: Code(s): J96.01 - Acute respiratory failure with hypoxia; J96.02 - Acute respiratory failure with hypercapnia Status: Acute Assessment and Plan: Secondary to acute exacerbation of COPD ABG with worsening hypercarbia and respiratory acidosis He is also on empiric antibiotics in the form of Rocephin and azithromycin which will be continued Blood and sputum cultures have been sent and are negative to date COVID PCR was negative 07/09: patient and family initially did not want intubation but then decided to proceed; ET intubation proceeded uneventfully. (2) COPD exacerbation: Code(s): J44.1 - Chronic obstructive pulmonary disease with (acute) exacerbation Status: Acute Assessment and Plan: See above (3) Chronic hyponatremia: Code(s): E87.1 - Hypo-osmolality and hyponatremia Status: Acute Assessment and Plan: Na 133 07/09 (4) Alcohol withdrawal: Code(s): F10.239 - Alcohol dependence with withdrawal, unspecified Status: Acute Assessment and Plan: Patient was transferred yesterday due to alcohol withdrawal which was worsening his respiratory failure Librium was discontinued and patient was started on Precedex infusion along with p.r.n. Ativan At this time patient is fairly sedated and I will decreased Precedex infusion. Will titrate depending on his response Continue p.r.n. Ativan with does depending on CIWA score Continue thiamine folic acid (5) Hypertension: Qualifiers: Hypertension type: unspecified Qualified Code(s): I10 - Essential (primary) hypertension Code(s): I10 - Essential (primary) hypertension Status: Chronic Assessment and Plan: Continue metoprolol but hold Norvasc (6) CAD (coronary artery disease): Qualifiers: Coronary Disease-Associated Artery/Lesion type: [place] artery [place] vs. transplanted heart: [place] heart Associated angina: without angina Qualified Code(s): I25.10 - Atherosclerotic heart disease of [place] coronary artery without angina pectoris Code(s): I25.10 - Atherosclerotic heart disease of [place] coronary artery without angina pectoris Status: Acute Assessment and Plan: Continue aspirin beta-shannan and statin His troponin was negative on presentation Echo Summary 1. Left ventricular chamber dimension is normal. 2. Left ventricular systolic function is normal, estimated at 60-65%. 3. There is no increased left ventricular wall thickness. 4. The left ventricular diastolic function is abnormal. 5. Right ventricular chamber dimension is severely enlarged. 6. Right ventricular systolic function is reduced. 7. Linear artifact in right ventricle suggestive of catheter(s), pacemaker lead(s), or ICD lead(s). 8. Left atrial chamber dimension is mildly enlarged. 9. Right atrial chamber dimension is mildly enlarged. 10. There is mild mitral valve regurgitation. 11. There is mild tricuspid valve regurgitation. Subjective Date/time seen: 07/09/21 08:59 Interval history: 07/09: Sedated on precedex. Tolerating bipap. Uncomfortable when precedex is weaned but hypoventilates when receiving adequate precedex. Review of Systems Review of Systems: ROS unobtainable: Yes unobtainable due to medical condition Exam Narrative: General: Pt is on BiPAP, sedated with Precedex, opens his eyes on sternal rub Lungs/Chest: Trachea central decreased breath sounds bilaterally with decreased air movement, No crackles or wheezing. Cardiac: RRR. Normal S1 S2. No murmurs Circulation: Pedal pulses are intact and symmetrical. Abdomen: Normal bowel sounds.. Soft. NT. ND. Extremities: No clubbing, cyanosis or edema. Warm : Byrnes in place Neurologic: He is fairly drowsy, opens eyes on stimulation and follow commands, moves all 4 extremities spontaneously PERRL Skin: N
[2021-07-09] MEDS: LABETALOL HCL INJ 100 MG/20 ML VIAL 20 MG IV PUSH (09:28)
--- NOTE | 2021-07-09 10:24 | PM.EVENT ---
Event Note Event Note Event Note: Family Meeting I met with patient's at bedside to discuss medical decisions and goals of care. She told me that patient has COPD which is pretty severe he gets short of breath even walking from bed to bathroom. She states he is very stubborn and does not see a lung doctor. He does have inhalers. She states that he does not go out anymore for last few years because of shortness of breath with exertion. I updated Her with patient's current condition including severe respiratory failure and option of proceeding with intubation and mechanical ventilation. I also updated her with current treatment plan, expected prognosis and different potential outcomes. She told me that patient does not want to go on a ventilator and or wants resuscitation in this he has been pretty clear with her in the past. She states that he did sign advance directive in the past stating the same. She wants to continue medical therapy and is hoping that things will turn around and he will get better But she is sure that he does not want resuscitation in the event of cardiac arrest or wants to go on a ventilator. She states that he told her that 'dying on a ventilator is no way to '. I have made patient DNR in the chart as per patient's 's request.
[2021-07-09] MEDS: FOLIC ACID 1 MG/0.2 ML INJ IV PUSH (10:42)
[2021-07-09] MEDS: MIDAZOLAM 100MG/NS 100ML(*CRX) 100 MG/100 ML BAG IV CONT (12:50)
[2021-07-09] MEDS: FENTANYL 2,500MCG/NS250ML(*CRX 2,500 MCG/250 ML BAG 10 MCG IV CONT (12:52)
[2021-07-09] MEDS: fentaNYL CITRATE INJ (*CRX) 100 MCG/2 ML VIAL 50 MCG IV PUSH (13:11)
--- NOTE | 2021-07-09 13:11 | WPDPROCEDUR ---
Procedures Intubation Intubation Date: 07/09/21 Intubation Time: 12:30 Consent: consent was obtained from both patient and patient's A pre-procedural Time-Out was completed immediately before starting the procedure and confirmed: Patient Identification, Site, Procedure, Patient Position and the Availability of Requisite Equipment: Yes Sedative: etomidate Mg given: 20 Laryngoscope: fiber optic video scope Assist device used: fiber optic device ET tube size: 8 Tube secured depth (cm): 24 Tube secured location: lips Tube placement confirmation: visualized tube passing through cords, equal breath sounds bilaterally, no breath sounds over epigastrium and confirmation by capnometry Patient tolerated procedure: well Intubation complications: none
--- NOTE | 2021-07-09 13:12 | P.PNCROSS_ITS ---
Event Note Event Note Event Note: After my initial discussion with patient's , patient became more short of breath and stated that he could not take it anymore and wanted intubation and mechanical ventilation. I discussed with him that his told me his wishes were not to go on a ventilator and he said he has changed his mind because he not take being short of breath anymore. He states that he would still does not want CPR or electric shock but wanted to be put on ventilator and sedated. I called and spoke to patient's by phone and she requested that she would like to speak to him for pursuing this. She came back with her daughter and spoke to patient. Then I spoke to patient patient's and patient's daughter and he reiterated that he wanted to go on ventilator. He again confirmed that he did not want CPR. He also confirmed that he does not want mechanical ventilation for prolonged period of time. when asked him about tracheostomy in case he is not extubated, he told me that he did not want tracheostomy and long-term mechanical ventilation. His stated that we shou ld proceed with mechanical ventilation and give him a chance he can be extubated. After discussion with the family and patient I intubated the patient placed him on mechanical ventilation. patient was given 4 mg of Versed 20 mg of etomidate for intubation and another 2 mg of Versed was given post intubation. Patient has been started on Versed and fentanyl infusion. He is also getting 1 L bolus of saline. I will also start him on tube feeds. Chest x-ray and KUB has been reviewed. ABGs pending. I have adjusted his medications to per tube. Total additional Critical Care Time for the day except separately billed procedures - 60 minutes Due to a high probability of clinically significant, life threatening deterioration, the patient required my highest level of preparedness to inte rvene emergently and I personally spent this critical care time directly and personally managing the patient. This critical care time included obtaining a history; examining the patient; pulse oximetry; ordering and review of studies; arranging urgent treatment with development of a management plan; evaluation of patient's response to treatment; frequent reassessment; and discussions with other providers. It was exclusive of separately billable procedures and treating other patients and teaching time. Please see Assessment and Plan section and the rest of the note for further information on patient assessment and treatment
[2021-07-09] MEDS: SODIUM CHLORIDE 0.9% IV 1,000 ML 999 ML IV CONT ×2 (13:19→20:45)
[2021-07-09 13:43] LABS: Alveolar/Arterial O2 Gradient 48.5 mmHg; Base Excess ABG 1.1 mEq/l (+/-2.0); Fractional Inspired Oxygen 35 %; Oxygen Content ABG 17.6 %vol (16.0-22.0); Oxygen Saturation ABG 98.5 % (95.0-100.0); Oxyhemoglobin 97.4 % THb (90.0-100.0); PCO2 ABG 54.8 mmHg (35.0-45.0); PO2 ABG 137.3 mmHg (80.0-100.0); PO2 FiO2 Ratio Arterial Blood 3.92 %; Total Hemoglobin 12.7 g/dL (12.0-18.0); pH ABG 7.327 (7.350-7.450)
[2021-07-09 13:45] LABS: Arterial Blood Gas PEEP 5 cmH2O; Arterial Blood Gas Tidal Volume 450 ml; Arterial Blood Gas Vent Mode CMV; Arterial Blood Gas Ventilator rate 20 /MIN; Device VENTILATOR; Modified Allen's Test Pass; Site Drawn RIGHT RADIAL
--- NOTE | 2021-07-09 14:21 | PM.PNPUL ---
Progress Note: A&P Assessment and Plan (1) Acute respiratory failure with hypoxia and hypercapnia: Code(s): J96.01 - Acute respiratory failure with hypoxia; J96.02 - Acute respiratory failure with hypercapnia Status: Acute Assessment and Plan: Intubated today with worsening respiratory distress; post intubation ABG 7.347/54.8/137/28 on CMV 20, 450 ml, 35%, PEEP 5 07/09 - intubated, Precedex 07/08- Tolerating having BiPAP off, Nasal Cannula 3 L/min, still with light sedation with Precedex. With it off, he was too agitated. 07/07 - transferred to ICU for alcohol withdrawal and need for continuous BiPAP; started on Precedex 07/06- admitted with increased shortness of breath, acute hypercapnia, on 8 L/min O2 with adequate oxygenation. He is using BiPAP (2) COPD exacerbation: Code(s): J44.1 - Chronic obstructive pulmonary disease with (acute) exacerbation Status: Acute Assessment and Plan: He does not have an infiltrate, does not fever, wbc is now normal 8.2K, He is on controller medication at home, Guero with 3 long acting medications: budesonide / formoterol / glycopyrrolate. More follow up after discharge. Continue bronchodilator therapy with albuterol scheduled Q 4 hours. He is not a smoker any longer. (3) Alcohol withdrawal: Code(s): F10.239 - Alcohol dependence with withdrawal, unspecified Status: Acute Assessment and Plan: Last beer was Sat, 4 days ago. Before intubation, he was lucid, does not appear to be in alcohol withdrawal. Drinks daily, says 2-3 beers a day, and his says it is significantly more. Was having agitation, tremors, confusion, hallucinations, trying to take off BiPAP mask, trying to get out of bed, talking to himself. This improved with Precedex drip and IV thiamine. Subjective Date/time seen: 07/09/21 14:21 Hospital f/u: Layton Ayala is seen in follow up for COPD exacerbation, acute on chronic respiratory failure. He was just intubated in the ICU. Dr Fagan talked with his family about his condition, DNR was decided, then the patient became lucid, stated that he was extremely short of breath, wanted intubation. He is comfortably sedated with propofol and Precedex. I spoke with his nurse at the bedside. Review of Systems Review of Systems: ROS unobtainable: Yes unobtainable due to endotracheal tube Exam Narrative: GEN: Sedated, Precedex infusion, orally intubated CHEST: Equal air entry, symmetric excursion, decreased breath sounds, no wheezing CV: Regular S1S2 no m/g/r. 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 ABD : (+) bowel sounds Extremities : no clubbing, cyanosis, or edema PSYCH: lightly sedated with Precedex, Objective Data Vital Signs Vital Signs: Vital Signs - 24 hr 07/08/21 15:54 07/08/21 15:56 07/08/21 16:00 Temperature 36.3 C L Pulse Rate 87 Respiratory Rate 16 Blood Pressure 127/77 116/79 Pulse Oximetry 98 96 07/08/21 16:44 07/08/21 16:48 07/08/21 16:58 Temperature Pulse Rate 85 92 86 Respiratory Rate 21 H 18 20 Blood Pressure Pulse Oximetry 97 07/08/21 18:00 07/08/21 19:42 07/08/21 19:49 Temperature Pulse Rate 77 79 Respiratory Rate 18 18 Blood Pressure 142/89 H 132/73 Pulse Oximetry 96 95 07/08/21 20:00 07/08/21 20:02 07/08/21 20:12 Temperature 36.4 C Pulse Rate 77 78 79 Respiratory Rate 19 20 22 H Blood Pressure 160/96 H Pulse Oximetry 95 95 07/08/21 21:24 07/08/21 23:03 07/08/21 23:49 Temperature Pulse Rate 80 86 85 Respiratory Rate 18 18 16 Blood Pressure 196/90 H Pulse Oximetry 96 97 07/09/21 00:00 07/09/21 00:12 07/09/21 00:20 Temperature 36.3 C L Pulse Rate 87 86 85 Respiratory Rate 16 18 20 Blood Pressure 110/69 Pulse
[2021-07-09 18:03] LABS: Glucose Point of Care 123 mg/dl (65-105)
[2021-07-09] MEDS: MINERAL OIL/WHITE PETROLATUM OINTMENT 1 APPLIC EACH EYE (20:45)
[2021-07-09 22:12] LABS: Prothrombin Time 13.1 Seconds (11.1-14.7)
[2021-07-09 22:20] LABS: Partial Thromboplastin Time 34.9 SECONDS (22.3-36.8)
[2021-07-09] MEDS: SODIUM CHLORIDE 0.9% IV 1,000 ML 125 ML IV CONT (23:36)
[2021-07-09 23:41] LABS: Glucose Point of Care 130 mg/dl (65-105)
[2021-07-10] VITALS (39 sets, daily range): BP systolic 103–124; BP diastolic 60–75; PULSE 79–104; RESP 20–22; TEMP 36.2–37.3; O2SAT 94–100; BMI 24.4
[2021-07-10] MEDS: IPRATROPIUM BR 0.02% INH SOLN 0.5 MG/2.5 ML VIAL INHALATION ×6 (00:16→20:00)
[2021-07-10] MEDS: LEVALBUTEROL NEB 1.25 MG/3 ML 0.63 MG INHALATION ×6 (00:16→20:00)
[2021-07-10 04:40] LABS: Alveolar/Arterial O2 Gradient 81.6 mmHg; Carboxyhemoglobin 0.2 % THb (0-2.0); Fractional Inspired Oxygen 30 %; HCO3 ABG 24.7 mEq/l (22.0-26.0); Methemoglobin ABG 0.3 %THb (0-1.5); Oxygen Content ABG 16.9 %vol (16.0-22.0); Oxygen Saturation ABG 96.4 % (95.0-100.0); Oxyhemoglobin 95.6 % THb (90.0-100.0); PCO2 ABG 40.4 mmHg (35.0-45.0); PO2 ABG 84.8 mmHg (80.0-100.0); PO2 FiO2 Ratio Arterial Blood 2.83 %; Reduced Hemoglobin 3.9 %THb (0-5.0); Total Hemoglobin 12.5 g/dL (12.0-18.0); pH ABG 7.404 (7.350-7.450)
[2021-07-10 04:41] LABS: Device VENTILATOR; Modified Allen's Test Pass; Site Drawn RIGHT RADIAL
[2021-07-10 04:42] LABS: Arterial Blood Gas PEEP 5 cmH2O; Arterial Blood Gas Tidal Volume 450 ml; Arterial Blood Gas Vent Mode CMV; Arterial Blood Gas Ventilator rate 22 /MIN
[2021-07-10 04:48] LABS: Hematocrit 33.9 % (42.0-52.0); Hemoglobin 10.6 g/dL (14.0-18.0); Mean Corpuscular HGB Conc 31.3 g/dl (32-36); Mean Corpuscular Hemoglobin 31.8 pg (26-34); Mean Corpuscular Volume 101.8 fl (80-100); Mean Platelet Volume 9.2 fl (7.4-10.4); Platelet Count Result 163 k/mm3 (150-375); Red Blood Count 3.33 M/mm3 (4.6-6.20); White Blood Count 4.9 K/mm3 (4.5-10.0)
[2021-07-10 05:00] LABS: Alanine Aminotransferase 24 U/L (4-50); Albumin Level 3.1 g/dL (3.5-5.1); Alkaline Phosphatase 38 U/L (38-126); Anion Gap 6 mmol/L (8-16); Aspartate Amino Transferase 28 U/L (17-59); Bilirubin,Total 0.2 mg/dL (0.2-1.3); Blood Urea Nitrogen 42 mg/dL (9-20); Calcium 7.4 mg/dL (8.4-10.2); Carbon Dioxide 25 mmol/L (22-30); Chloride 104 mmol/L (98-107); Estimated CRCL calculation 62 ml/min; Estimated Glomerular Filt Rate > 60; Glucose 155 mg/dL (65-110); Magnesium 2.5 mg/dL (1.6-2.3); Potassium 4.5 mmol/L (3.4-5.0); Sodium 135 mmol/L (137-145)
[2021-07-10] MEDS: LEVOTHYROXINE SODIUM 50 MCG TABLET FEED TUBE (06:34)
[2021-07-10] MEDS: LEVOTHYROXINE SODIUM 12.5 MCG TABLET FEED TUBE (06:34)
[2021-07-10] MEDS: SODIUM CHLORIDE 0.9% IV 1,000 ML 125 ML IV CONT ×2 (08:22→18:17)
[2021-07-10] MEDS: CALCIUM GLUC 2,000 MG/NS 100ML 2,000 MG/100 ML BAG 100 MG IVPB (08:31)
[2021-07-10] MEDS: PANTOPRAZOLE SODIUM IV 40 MG VIAL IV PUSH (08:37)
[2021-07-10] MEDS: FOLIC ACID 1 MG TABLET FEED TUBE (08:37)
[2021-07-10] MEDS: MINERAL OIL/WHITE PETROLATUM OINTMENT 1 APPLIC EACH EYE ×2 (08:37→20:47)
[2021-07-10] MEDS: methylPREDNISolone SOD SUCC 40 MG VIAL IV PUSH ×2 (08:37→20:47)
[2021-07-10] MEDS: THIAMINE HCL 100 MG TABLET FEED TUBE (08:38)
[2021-07-10] MEDS: ASPIRIN 81 MG ENTERIC TABLET PO (08:38)
[2021-07-10] MEDS: ENOXAPARIN 40 MG/0.4 ML SYRINGE SUB-Q (08:38)
--- NOTE | 2021-07-10 08:40 | PCRCNOTE ---
pt was placed on PSV 10/5 25%, trial failed.
[2021-07-10] MEDS: MIDAZOLAM 100MG/NS 100ML(*CRX) 100 MG/100 ML BAG IV CONT (09:08)
--- NOTE | 2021-07-10 09:51 | WPDINTPN ---
Progress Note: A&P Assessment and Plan (1) Acute respiratory failure with hypoxia and hypercapnia: Code(s): J96.01 - Acute respiratory failure with hypoxia; J96.02 - Acute respiratory failure with hypercapnia Status: Acute Assessment and Plan: Secondary to acute exacerbation of COPD 07/06 placed on BiPAP and was on BiPAP intermittently. 07/09 BiPAP was changed to AVAPS and repeat ABG was improved. 07/09 intubated in the afternoon ABG and chest x-ray reviewed Chest x-ray reviewed shows severe emphysema Continue current mechanical ventilation settings tidal volume of 450 and rate of 20 Echocardiogram reviewed Continue steroids and bronchodilators He is also on empiric antibiotics in the form of Rocephin and azithromycin which will be continued Blood and sputum cultures have been sent and are negative for now COVID PCR was negative (2) COPD exacerbation: Code(s): J44.1 - Chronic obstructive pulmonary disease with (acute) exacerbation Status: Acute Assessment and Plan: See above (3) Chronic hyponatremia: Code(s): E87.1 - Hypo-osmolality and hyponatremia Status: Acute Assessment and Plan: Sodium improved Patient on IV fluids Monitor sodium and intake/output Check TSH (4) Alcohol withdrawal: Code(s): F10.239 - Alcohol dependence with withdrawal, unspecified Status: Acute Assessment and Plan: Patient was initially transferred to ICU due to alcohol withdrawal which was worsening his respiratory failure Currently sedated with Versed and fentanyl Continue thiamine and folic acid (5) Hypertension: Qualifiers: Hypertension type: unspecified Qualified Code(s): I10 - Essential (primary) hypertension Code(s): I10 - Essential (primary) hypertension Status: Chronic Assessment and Plan: Blood pressure is now in controlled range hence blood pressure medications are on hold (6) CAD (coronary artery disease): Qualifiers: Coronary Disease-Associated Artery/Lesion type: [place] artery [place] vs. transplanted heart: [place] heart Associated angina: without angina Qualified Code(s): I25.10 - Atherosclerotic heart disease of [place] coronary artery without angina pectoris Code(s): I25.10 - Atherosclerotic heart disease of [place] coronary artery without angina pectoris Status: Acute Assessment and Plan: EKG reviewed Continue aspirin beta-shannan and statin His troponin was negative on presentation echo Summary 1. Left ventricular chamber dimension is normal. 2. Left ventricular systolic function is normal, estimated at 60-65%. 3. There is no increased left ventricular wall thickness. 4. The left ventricular diastolic function is abnormal. 5. Right ventricular chamber dimension is severely enlarged. 6. Right ventricular systolic function is reduced. 7. Linear artifact in right ventricle suggestive of catheter(s), pacemaker lead(s), or ICD lead(s). 8. Left atrial chamber dimension is mildly enlarged. 9. Right atrial chamber dimension is mildly enlarged. 10. There is mild mitral valve regurgitation. 11. There is mild tricuspid valve regurgitation. (7) Hypotension: Code(s): I95.9 - Hypotension, unspecified Status: Acute Assessment and Plan: Patient was transiently hypertensive yesterday likely secondary to sedation and mechanical ventilator He was given fluid bolus and his blood pressure improved. Continue to monitor (8) Hypothyroidism: Qualifiers: Hypothyroidism type: unspecified Qualified Code(s): E03.9 - Hypothyroidism, unspecified Code(s): E03.9 - Hypothyroidism, unspecified Status: Chronic Assessment and Plan: Continue levothyroxine tube Additional Plan DVT prophylaxis -Lovenox Nutrition -tube feeds Code Status -patient is DNR and does not want tracheostomy or prolonged mechanical ventilation which was confirmed by him and his an
[2021-07-10] MEDS: LIDOCAINE HCL 1% PF INJ 5 ML VIAL INFILTRATE (10:10)
[2021-07-10 10:49] LABS: Thyroid Stimulating Hormone Reflex 0.703 uIU/mL (0.465-4.68)
[2021-07-10] MEDS: CENTRAL LINE FLUSH 10 ML IV PUSH ×2 (12:43→20:48)
[2021-07-10] MEDS: FENTANYL 2,500MCG/NS250ML(*CRX 2,500 MCG/250 ML BAG 10 MCG IV CONT (12:44)
[2021-07-10 13:15] LABS: Glucose Point of Care 191 mg/dl (65-105)
--- NOTE | 2021-07-10 16:48 | PM.IMPN ---
Progress Note: A&P Assessment and Plan (1) Acute respiratory failure with hypoxia and hypercapnia: Code(s): J96.01 - Acute respiratory failure with hypoxia; J96.02 - Acute respiratory failure with hypercapnia Status: Acute Assessment and Plan: Secondary to acute exacerbation of COPD 07/06 placed on BiPAP and was on BiPAP intermittently. 07/09 BiPAP was changed to AVAPS and repeat ABG was improved. 07/09 intubated in the afternoon ABG and chest x-ray reviewed Chest x-ray reviewed shows severe emphysema Continue current mechanical ventilation settings tidal volume of 450 and rate of 20 Echocardiogram reviewed Continue steroids and bronchodilators He is also on empiric antibiotics in the form of Rocephin and azithromycin which will be continued Blood and sputum cultures have been sent and are negative for now COVID PCR was negative 07/10/2021 interval history: patient with history of COPD with respiratory failure most likely secondary to exacerbation of COPD resulting in hypercarbic initially patient was placed on BiPAP and now on ventilator unable to provide any review of symptom, initially patient did not want intubation however later was convinced by the family patient was intubated. patient is seen by proof load mechanic being treated with methylprednisone and updraft as well as antibiotics with Rocephin and azithromycin, and also has history of alcohol currently on Precedex will continue to monitor and further recommendation to follow. (2) COPD exacerbation: Code(s): J44.1 - Chronic obstructive pulmonary disease with (acute) exacerbation Status: Acute Assessment and Plan: See above (3) Chronic hyponatremia: Code(s): E87.1 - Hypo-osmolality and hyponatremia Status: Acute Assessment and Plan: Sodium improved Patient on IV fluids Monitor sodium and intake/output Check TSH (4) Alcohol withdrawal: Code(s): F10.239 - Alcohol dependence with withdrawal, unspecified Status: Acute Assessment and Plan: Patient was initially transferred to ICU due to alcohol withdrawal which was worsening his respiratory failure Currently sedated with Versed and fentanyl Continue thiamine and folic acid (5) Hypertension: Qualifiers: Hypertension type: unspecified Qualified Code(s): I10 - Essential (primary) hypertension Code(s): I10 - Essential (primary) hypertension Status: Chronic Assessment and Plan: Blood pressure is now in controlled range hence blood pressure medications are on hold (6) CAD (coronary artery disease): Qualifiers: Coronary Disease-Associated Artery/Lesion type: [place] artery [place] vs. transplanted heart: [place] heart Associated angina: without angina Qualified Code(s): I25.10 - Atherosclerotic heart disease of [place] coronary artery without angina pectoris Code(s): I25.10 - Atherosclerotic heart disease of [place] coronary artery without angina pectoris Status: Acute Assessment and Plan: EKG reviewed Continue aspirin beta-shannan and statin His troponin was negative on presentation echo Summary 1. Left ventricular chamber dimension is normal. 2. Left ventricular systolic function is normal, estimated at 60-65%. 3. There is no increased left ventricular wall thickness. 4. The left ventricular diastolic function is abnormal. 5. Right ventricular chamber dimension is severely enlarged. 6. Right ventricular systolic function is reduced. 7. Linear artifact in right ventricle suggestive of catheter(s), pacemaker lead(s), or ICD lead(s). 8. Left atrial chamber dimension is mildly enlarged. 9. Right atrial chamber dimension is mildly enlarged. 10. There is mild mitral valve regurgitation. 11. There is mild tricuspid valve regurgitation. (7) Hypotension: Code(s): I95.9 - Hypotension, unspecified Status: Acute Assessment and Plan: Patient was transiently hyperte
[2021-07-10 17:48] LABS: Glucose Point of Care 187 mg/dl (65-105)
[2021-07-11] VITALS (46 sets, daily range): BP systolic 116–144; BP diastolic 66–92; PULSE 26–104; RESP 18–105; TEMP 36.4–37.2; O2SAT 94–97
[2021-07-11] MEDS: LEVALBUTEROL NEB 1.25 MG/3 ML 0.63 MG INHALATION ×2 (00:11→04:34)
[2021-07-11] MEDS: IPRATROPIUM BR 0.02% INH SOLN 0.5 MG/2.5 ML VIAL INHALATION ×5 (00:11→20:08)
[2021-07-11 00:12] LABS: Glucose Point of Care 164 mg/dl (65-105)
[2021-07-11] MEDS: SODIUM CHLORIDE 0.9% IV 1,000 ML 125 ML IV CONT (01:54)
[2021-07-11 05:01] LABS: Alveolar/Arterial O2 Gradient 69.9 mmHg; Base Excess ABG 0.3 mEq/l (+/-2.0); Carboxyhemoglobin 0.2 % THb (0-2.0); Fractional Inspired Oxygen 30 %; HCO3 ABG 26.2 mEq/l (22.0-26.0); Methemoglobin ABG 0.3 %THb (0-1.5); Oxygen Content ABG 16.8 %vol (16.0-22.0); Oxygen Saturation ABG 96.3 % (95.0-100.0); Oxyhemoglobin 95.2 % THb (90.0-100.0); PCO2 ABG 47.8 mmHg (35.0-45.0); PO2 ABG 87.8 mmHg (80.0-100.0); PO2 FiO2 Ratio Arterial Blood 2.93 %; Reduced Hemoglobin 4.3 %THb (0-5.0); Total Hemoglobin 12.5 g/dL (12.0-18.0); pH ABG 7.357 (7.350-7.450)
[2021-07-11 05:02] LABS: Arterial Blood Gas PEEP 5 cmH2O; Arterial Blood Gas Tidal Volume 450 ml; Arterial Blood Gas Vent Mode CMV; Arterial Blood Gas Ventilator rate 20 /MIN; Device VENTILATOR; Modified Allen's Test Unable to perform; Site Drawn RIGHT RADIAL
[2021-07-11 05:12] LABS: Hematocrit 37.1 % (42.0-52.0); Hemoglobin 11.8 g/dL (14.0-18.0); Mean Corpuscular HGB Conc 31.8 g/dl (32-36); Mean Corpuscular Hemoglobin 32.3 pg (26-34); Mean Corpuscular Volume 101.6 fl (80-100); Mean Platelet Volume 9.2 fl (7.4-10.4); Platelet Count Result 171 k/mm3 (150-375); Red Blood Count 3.65 M/mm3 (4.6-6.20); Red Cell Distribution Width 13.5 % (11.5-14.5)
[2021-07-11 05:23] LABS: Alanine Aminotransferase 21 U/L (4-50); Alkaline Phosphatase 36 U/L (38-126); Anion Gap 2 mmol/L (8-16); Aspartate Amino Transferase 27 U/L (17-59); Bilirubin,Total 0.3 mg/dL (0.2-1.3); Blood Urea Nitrogen 49 mg/dL (9-20); Calcium 7.8 mg/dL (8.4-10.2); Carbon Dioxide 27 mmol/L (22-30); Chloride 107 mmol/L (98-107); Estimated CRCL calculation 70 ml/min; Estimated Glomerular Filt Rate > 60; Glucose 173 mg/dL (65-110); Magnesium 2.5 mg/dL (1.6-2.3); Potassium 4.8 mmol/L (3.4-5.0); Sodium 136 mmol/L (137-145)
[2021-07-11] MEDS: LEVOTHYROXINE SODIUM 50 MCG TABLET FEED TUBE (06:24)
[2021-07-11] MEDS: LEVOTHYROXINE SODIUM 12.5 MCG TABLET FEED TUBE (06:24)
[2021-07-11] MEDS: CENTRAL LINE FLUSH 10 ML IV PUSH ×3 (06:25→21:52)
[2021-07-11] MEDS: FLUTICASONE/UMECLIDIN/VILANTER 100-62.5-25 MCG ELLIPTA 1 PUFF INHALATION (08:16)
[2021-07-11] MEDS: ASPIRIN 81 MG ENTERIC TABLET PO (08:48)
[2021-07-11] MEDS: ENOXAPARIN 40 MG/0.4 ML SYRINGE SUB-Q (08:49)
[2021-07-11] MEDS: methylPREDNISolone SOD SUCC 40 MG VIAL IV PUSH ×2 (08:50→21:51)
[2021-07-11] MEDS: MINERAL OIL/WHITE PETROLATUM OINTMENT 1 APPLIC EACH EYE ×2 (08:50→21:51)
[2021-07-11] MEDS: PANTOPRAZOLE SODIUM IV 40 MG VIAL IV PUSH (08:50)
[2021-07-11] MEDS: FOLIC ACID 1 MG TABLET FEED TUBE (08:50)
[2021-07-11] MEDS: THIAMINE HCL 100 MG TABLET FEED TUBE (08:50)
--- NOTE | 2021-07-11 09:52 | WPDINTPN ---
Progress Note: A&P Assessment and Plan (1) Acute respiratory failure with hypoxia and hypercapnia: Code(s): J96.01 - Acute respiratory failure with hypoxia; J96.02 - Acute respiratory failure with hypercapnia Status: Acute Assessment and Plan: Secondary to acute exacerbation of COPD 07/06 placed on BiPAP and was on BiPAP intermittently. 07/09 BiPAP was changed to AVAPS and repeat ABG was improved. 07/09 intubated in the afternoon ABG and chest x-ray reviewed Continues CMV mode of ventilation Echocardiogram reviewed Continue steroids and bronchodilators He is also on empiric antibiotics in the form of Rocephin and azithromycin (initiated on a 07/06) which will be continued Blood and sputum cultures have been sent and are negative for now COVID PCR was negative Currently on fentanyl and Versed for sedation, daily sedation vacation, once patient is off sedation will try him on SBT (2) COPD exacerbation: Code(s): J44.1 - Chronic obstructive pulmonary disease with (acute) exacerbation Status: Acute Assessment and Plan: See above (3) Chronic hyponatremia: Code(s): E87.1 - Hypo-osmolality and hyponatremia Status: Acute Assessment and Plan: Sodium improved Discontinue IV fluids as patient is getting admitted Monitor sodium and intake/output TSH within normal limits (4) Alcohol withdrawal: Code(s): F10.239 - Alcohol dependence with withdrawal, unspecified Status: Acute Assessment and Plan: Patient was initially transferred to ICU due to alcohol withdrawal which was worsening his respiratory failure Currently sedated with Versed and fentanyl Continue thiamine and folic acid (5) Hypertension: Qualifiers: Hypertension type: unspecified Qualified Code(s): I10 - Essential (primary) hypertension Code(s): I10 - Essential (primary) hypertension Status: Chronic Assessment and Plan: Blood pressure is now in controlled range hence blood pressure medications are on hold (6) CAD (coronary artery disease): Qualifiers: Coronary Disease-Associated Artery/Lesion type: [place] artery [place] vs. transplanted heart: [place] heart Associated angina: without angina Qualified Code(s): I25.10 - Atherosclerotic heart disease of [place] coronary artery without angina pectoris Code(s): I25.10 - Atherosclerotic heart disease of [place] coronary artery without angina pectoris Status: Acute Assessment and Plan: EKG reviewed Continue aspirin beta-shannan and statin His troponin was negative on presentation echo Summary 1. Left ventricular chamber dimension is normal. 2. Left ventricular systolic function is normal, estimated at 60-65%. 3. There is no increased left ventricular wall thickness. 4. The left ventricular diastolic function is abnormal. 5. Right ventricular chamber dimension is severely enlarged. 6. Right ventricular systolic function is reduced. 7. Linear artifact in right ventricle suggestive of catheter(s), pacemaker lead(s), or ICD lead(s). 8. Left atrial chamber dimension is mildly enlarged. 9. Right atrial chamber dimension is mildly enlarged. 10. There is mild mitral valve regurgitation. 11. There is mild tricuspid valve regurgitation. (7) Hypotension: Code(s): I95.9 - Hypotension, unspecified Status: Acute Assessment and Plan: Patient was transiently hypertensive yesterday likely secondary to sedation and mechanical ventilator He was given fluid bolus and his blood pressure improved. Continue to monitor (8) Hypothyroidism: Qualifiers: Hypothyroidism type: unspecified Qualified Code(s): E03.9 - Hypothyroidism, unspecified Code(s): E03.9 - Hypothyroidism, unspecified Status: Chronic Assessment and Plan: Continue levothyroxine per tube Additional Plan DVT prophylaxis : Lovenox Stress ulcer prophylaxis: Protonix Nutrition -tube fe
--- NOTE | 2021-07-11 11:25 | PCNFU ---
Nutrition Follow-Up Complete: Less than optimal enteral nutrition composition as related to intake from enteral nutrients as evidenced by current tube feeding rate. Goal: Meet estimated nutritional needs Patient is progressing towards goal. We will continue current goal. Pt current nutrition is Vital AF 1.2 at 65 ml/hr over 22 hours. Last recorded weight is 71.5 kg, up from 70.8 kg on admit. Bowel Motility:+BM reported 07/08 Labs Reviewed:Mg 2.5, Glu 173, BUN 49, Na 136, Alb 3.0,Hgb 11.8, Hct 37.1 Meds Noted: Synthroid, Solu-Medrol,Fentanyl, Folic Acid,Thiamine,Rocephin, Atrovent, Lovenox, Fentanyl, Versed, Xopenex, Zithromax. Additional Notes: Patient current with mechanical vent CMV mode and tube feedings of Vital AF 1.2 at 65 ml/hr over 22 hours and tolerating per nursing. Current tube feeding is providing 1716 kcals/107 gm protein/1160 ml water. Free water flush 30 ml q 4 hours. Agree with diet orders. Will monitor in ICU rounds and reassess every Saturday and Saturday.
[2021-07-11 12:43] LABS: Glucose Point of Care 162 mg/dl (65-105)
--- NOTE | 2021-07-11 14:18 | PM.IMPN ---
Progress Note: A&P Assessment and Plan (1) Acute respiratory failure with hypoxia and hypercapnia: Code(s): J96.01 - Acute respiratory failure with hypoxia; J96.02 - Acute respiratory failure with hypercapnia Status: Acute Assessment and Plan: Secondary to acute exacerbation of COPD 07/06 placed on BiPAP and was on BiPAP intermittently. 07/09 BiPAP was changed to AVAPS and repeat ABG was improved. 07/09 intubated in the afternoon ABG and chest x-ray reviewed Chest x-ray reviewed shows severe emphysema Continue current mechanical ventilation settings tidal volume of 450 and rate of 20 Echocardiogram reviewed Continue steroids and bronchodilators He is also on empiric antibiotics in the form of Rocephin and azithromycin which will be continued Blood and sputum cultures have been sent and are negative for now COVID PCR was negative 07/10/2021 interval history: patient with history of COPD with respiratory failure most likely secondary to exacerbation of COPD resulting in hypercarbic initially patient was placed on BiPAP and now on ventilator unable to provide any review of symptom, initially patient did not want intubation however later was convinced by the family patient was intubated. patient is seen by color strainer being treated with methylprednisone and updraft as well as antibiotics with Rocephin and azithromycin, and also has history of alcohol currently on Precedex will continue to monitor and further recommendation to follow. 07/11/2021 interval history: patient with history of COPD with respiratory failure most likely secondary to exacerbation of COPD resulting in hypercarbic initially patient was placed on BiPAP and now on ventilator unable to provide any review of symptom, initially patient did not want intubation however later was convinced by the family patient was intubated. patient is seen by color strainer being treated with methylprednisone and updraft as well as antibiotics with Rocephin and azithromycin, and also has history of alcohol currently was on Precedex, today patient is off Precedex and sedation, trial to wean the patient off ventilator, patient is present in the room, will continue to monitor and further recommendation to follow. (2) COPD exacerbation: Code(s): J44.1 - Chronic obstructive pulmonary disease with (acute) exacerbation Status: Acute Assessment and Plan: See above (3) Chronic hyponatremia: Code(s): E87.1 - Hypo-osmolality and hyponatremia Status: Acute Assessment and Plan: Sodium improved Patient on IV fluids Monitor sodium and intake/output Check TSH (4) Alcohol withdrawal: Code(s): F10.239 - Alcohol dependence with withdrawal, unspecified Status: Acute Assessment and Plan: Patient was initially transferred to ICU due to alcohol withdrawal which was worsening his respiratory failure Currently sedated with Versed and fentanyl Continue thiamine and folic acid (5) Hypertension: Qualifiers: Hypertension type: unspecified Qualified Code(s): I10 - Essential (primary) hypertension Code(s): I10 - Essential (primary) hypertension Status: Chronic Assessment and Plan: Blood pressure is now in controlled range hence blood pressure medications are on hold (6) CAD (coronary artery disease): Qualifiers: Associated angina: without angina Coronary Disease-Associated Artery/Lesion type: [place] artery [place] vs. transplanted heart: [place] heart Qualified Code(s): I25.10 - Atherosclerotic heart disease of [place] coronary artery without angina pectoris Code(s): I25.10 - Atherosclerotic heart disease of [place] coronary artery without angina pectoris Status: Acute Assessment and Plan: EKG reviewed Continue aspirin beta-shannan and statin His troponin was negative on presentation echo Summary 1. Left ventricular chamber dimension is normal. 2. Left ventricul
[2021-07-11] MEDS: FENTANYL 2,500MCG/NS250ML(*CRX 2,500 MCG/250 ML BAG IV CONT (15:50)
[2021-07-11] MEDS: MIDAZOLAM 100MG/NS 100ML(*CRX) 100 MG/100 ML BAG IV CONT (15:52)
[2021-07-11 18:11] LABS: Glucose Point of Care 154 mg/dl (65-105)
[2021-07-12] VITALS (32 sets, daily range): BP systolic 121–167; BP diastolic 68–85; PULSE 74–109; RESP 16–20; TEMP 36.6–37.2; O2SAT 92–98
[2021-07-12 00:10] LABS: Glucose Point of Care 184 mg/dl (65-105)
[2021-07-12] MEDS: IPRATROPIUM BR 0.02% INH SOLN 0.5 MG/2.5 ML VIAL INHALATION ×4 (02:08→20:00)
[2021-07-12 04:16] LABS: Hematocrit 38.4 % (42.0-52.0); Hemoglobin 11.9 g/dL (14.0-18.0); Mean Corpuscular Volume 103.2 fl (80-100); Mean Platelet Volume 9.5 fl (7.4-10.4); Platelet Count Result 195 k/mm3 (150-375); Red Blood Count 3.72 M/mm3 (4.6-6.20); Red Cell Distribution Width 13.9 % (11.5-14.5); White Blood Count 8.4 K/mm3 (4.5-10.0)
[2021-07-12 04:36] LABS: Alanine Aminotransferase 40 U/L (4-50); Albumin Level 3.4 g/dL (3.5-5.1); Alkaline Phosphatase 34 U/L (38-126); Anion Gap 3 mmol/L (8-16); Aspartate Amino Transferase 47 U/L (17-59); Bilirubin,Total 0.3 mg/dL (0.2-1.3); Blood Urea Nitrogen 65 mg/dL (9-20); Carbon Dioxide 28 mmol/L (22-30); Chloride 106 mmol/L (98-107); Estimated CRCL calculation 62 ml/min; Estimated Glomerular Filt Rate > 60; Glucose 191 mg/dL (65-110); Magnesium 2.8 mg/dL (1.6-2.3); Potassium 5.6 mmol/L (3.4-5.0); Sodium 137 mmol/L (137-145)
[2021-07-12 05:16] LABS: Alveolar/Arterial O2 Gradient 74.8 mmHg; Base Excess ABG 0.1 mEq/l (+/-2.0); Carboxyhemoglobin 0.3 % THb (0-2.0); Fractional Inspired Oxygen 30 %; HCO3 ABG 28.2 mEq/l (22.0-26.0); Methemoglobin ABG 0.2 %THb (0-1.5); Oxygen Content ABG 16.5 %vol (16.0-22.0); Oxygen Saturation ABG 89.9 % (95.0-100.0); Oxyhemoglobin 91.1 % THb (90.0-100.0); Reduced Hemoglobin 8.4 %THb (0-5.0); Total Hemoglobin 12.9 g/dL (12.0-18.0)
[2021-07-12 05:17] LABS: pH ABG 7.274 (7.350-7.450)
[2021-07-12 05:18] LABS: Device VENTILATOR; Modified Allen's Test Pass; PCO2 ABG 62.2 mmHg (35.0-45.0); Site Drawn LEFT RADIAL
[2021-07-12 05:23] LABS: Arterial Blood Gas PEEP 5 cmH2O; Arterial Blood Gas Tidal Volume 450 ml; Arterial Blood Gas Ventilator rate 20 /MIN
[2021-07-12 05:24] LABS: Arterial Blood Gas Vent Mode CMV
[2021-07-12] MEDS: LEVOTHYROXINE SODIUM 12.5 MCG TABLET FEED TUBE (05:38)
[2021-07-12] MEDS: LEVOTHYROXINE SODIUM 50 MCG TABLET FEED TUBE (05:38)
[2021-07-12] MEDS: CENTRAL LINE FLUSH 10 ML IV PUSH ×3 (05:39→20:02)
[2021-07-12] MEDS: ENOXAPARIN 40 MG/0.4 ML SYRINGE SUB-Q (08:26)
[2021-07-12] MEDS: MINERAL OIL/WHITE PETROLATUM OINTMENT 1 APPLIC EACH EYE ×2 (08:28→20:08)
[2021-07-12] MEDS: FOLIC ACID 1 MG TABLET FEED TUBE (08:28)
[2021-07-12] MEDS: THIAMINE HCL 100 MG TABLET FEED TUBE (08:28)
[2021-07-12] MEDS: methylPREDNISolone SOD SUCC 40 MG VIAL IV PUSH ×2 (08:28→20:02)
[2021-07-12] MEDS: PANTOPRAZOLE SODIUM IV 40 MG VIAL IV PUSH (08:28)
[2021-07-12] MEDS: amLODIPine BESYLATE 5 MG TABLET PO (08:44)
[2021-07-12] MEDS: ASPIRIN 81 MG ENTERIC TABLET PO (08:44)
[2021-07-12] MEDS: METOPROLOL TARTRATE 25 MG TABLET PO (08:44)
[2021-07-12] MEDS: polyethylene glycoL 3350 17 GM POWD.PACK PO (11:07)
[2021-07-12] MEDS: FUROSEMIDE INJ 40 MG/4 ML VIAL 20 MG IV PUSH (11:07)
--- NOTE | 2021-07-12 11:35 | PCFNICU ---
ICU Rounding Note: Pt current nutrition is Vital AF 1.2 at 65 ml/hr. Last recorded weight is 71.2 kg-stable Bowel Motility:Last BM reported 07/08. Starting Miralax and Reglan today. Labs Reviewed:Mg 2.8,BUN 65, Glu 191,ALb 3.4, Hct 38.4,Hgb 11.9 Meds Noted:Synthroid, Solu-Medrol,Fentanyl, Folic Acid,Thiamine,Rocephin, Atrovent, Lovenox, Fentanyl, Versed, Xopenex, Zithromax Skin: WNL Additional Notes: Patient remains on mechanical vent CMV mode and tube feedings of Vital AF 1.2 at 65 ml/hr over 22 hours. Tube feeding is providing 1716 kcals/107 gms protein/1160 ml water. Free water flush 30 ml q 4 hours. Reglan started today, nursing reporting 300 ml residuals. No BM since 07/08-Miralax started today. Agree with diet orders. Following daily in ICU rounds. Will reassess every Saturday and Saturday.
--- NOTE | 2021-07-12 11:44 | WPDINTPN ---
Progress Note: A&P Assessment and Plan (1) Acute respiratory failure with hypoxia and hypercapnia: Code(s): J96.01 - Acute respiratory failure with hypoxia; J96.02 - Acute respiratory failure with hypercapnia Status: Acute Assessment and Plan: Secondary to acute exacerbation of COPD 07/06 placed on BiPAP and was on BiPAP intermittently. 07/09 BiPAP was changed to AVAPS and repeat ABG was improved. 07/09 intubated in the afternoon ABG and chest x-ray reviewed Continues CMV mode of ventilation: Auto PEEP was elevated, decreased his PEEP to 0, increased tidal volume to 500 and decrease the rate to 22. Patient seems to be more comfortable on this setting, I also increased the I to E ratio Echocardiogram reviewed Continue steroids and bronchodilators He is also on empiric antibiotics in the form of Rocephin and azithromycin (initiated on a 07/06) which will be continued Blood and sputum cultures have been sent and are negative for now COVID PCR was negative Currently on fentanyl and Versed for sedation, daily sedation vacation, once patient is off sedation will try him on SBT (2) COPD exacerbation: Code(s): J44.1 - Chronic obstructive pulmonary disease with (acute) exacerbation Status: Acute Assessment and Plan: See above (3) Chronic hyponatremia: Code(s): E87.1 - Hypo-osmolality and hyponatremia Status: Acute Assessment and Plan: Sodium improved IV fluids were discontinued on 07/11 Monitor sodium and intake/output TSH within normal limits (4) Alcohol withdrawal: Code(s): F10.239 - Alcohol dependence with withdrawal, unspecified Status: Acute Assessment and Plan: Patient was initially transferred to ICU due to alcohol withdrawal which was worsening his respiratory failure Currently sedated with Versed and fentanyl Continue thiamine and folic acid (5) Hypertension: Qualifiers: Hypertension type: unspecified Qualified Code(s): I10 - Essential (primary) hypertension Code(s): I10 - Essential (primary) hypertension Status: Chronic Assessment and Plan: Blood pressure is now in controlled range hence blood pressure medications are on hold (6) CAD (coronary artery disease): Qualifiers: Coronary Disease-Associated Artery/Lesion type: [place] artery [place] vs. transplanted heart: [place] heart Associated angina: without angina Qualified Code(s): I25.10 - Atherosclerotic heart disease of [place] coronary artery without angina pectoris Code(s): I25.10 - Atherosclerotic heart disease of [place] coronary artery without angina pectoris Status: Acute Assessment and Plan: EKG reviewed Continue aspirin beta-shannan and statin His troponin was negative on presentation echo Summary 1. Left ventricular chamber dimension is normal. 2. Left ventricular systolic function is normal, estimated at 60-65%. 3. There is no increased left ventricular wall thickness. 4. The left ventricular diastolic function is abnormal. 5. Right ventricular chamber dimension is severely enlarged. 6. Right ventricular systolic function is reduced. 7. Linear artifact in right ventricle suggestive of catheter(s), pacemaker lead(s), or ICD lead(s). 8. Left atrial chamber dimension is mildly enlarged. 9. Right atrial chamber dimension is mildly enlarged. 10. There is mild mitral valve regurgitation. 11. There is mild tricuspid valve regurgitation. (7) Hypotension: Code(s): I95.9 - Hypotension, unspecified Status: Acute Assessment and Plan: Patient was transiently hypertensive yesterday likely secondary to sedation and mechanical ventilator He was given fluid bolus and his blood pressure improved. Continue to monitor (8) Hypothyroidism: Qualifiers: Hypothyroidism type: unspecified Qualified Code(s): E03.9 - Hypothyroidism, unspecified Code(s): E03.9 - Hypothyroidism, unspecified
[2021-07-12] MEDS: METOCLOPRAMIDE HCL INJ 10 MG/2 ML VIAL IV PUSH ×2 (12:05→23:21)
[2021-07-12 12:15] LABS: Glucose Point of Care 177 mg/dl (65-105)
[2021-07-12] MEDS: LABETALOL HCL INJ 100 MG/20 ML VIAL 20 MG IV PUSH (14:13)
--- NOTE | 2021-07-12 16:29 | PM.IMPN ---
Progress Note: A&P Assessment and Plan (1) Acute respiratory failure with hypoxia and hypercapnia: Code(s): J96.01 - Acute respiratory failure with hypoxia; J96.02 - Acute respiratory failure with hypercapnia Status: Acute Assessment and Plan: Secondary to acute exacerbation of COPD 07/06 placed on BiPAP and was on BiPAP intermittently. 07/09 BiPAP was changed to AVAPS and repeat ABG was improved. 07/09 intubated in the afternoon ABG and chest x-ray reviewed Chest x-ray reviewed shows severe emphysema Continue current mechanical ventilation settings tidal volume of 450 and rate of 20 Echocardiogram reviewed Continue steroids and bronchodilators He is also on empiric antibiotics in the form of Rocephin and azithromycin which will be continued Blood and sputum cultures have been sent and are negative for now COVID PCR was negative 07/10/2021 interval history: patient with history of COPD with respiratory failure most likely secondary to exacerbation of COPD resulting in hypercarbic initially patient was placed on BiPAP and now on ventilator unable to provide any review of symptom, initially patient did not want intubation however later was convinced by the family patient was intubated. patient is seen by strong nitric operator being treated with methylprednisone and updraft as well as antibiotics with Rocephin and azithromycin, and also has history of alcohol currently on Precedex will continue to monitor and further recommendation to follow. 07/11/2021 interval history: patient with history of COPD with respiratory failure most likely secondary to exacerbation of COPD resulting in hypercarbic initially patient was placed on BiPAP and now on ventilator unable to provide any review of symptom, initially patient did not want intubation however later was convinced by the family patient was intubated. patient is seen by strong nitric operator being treated with methylprednisone and updraft as well as antibiotics with Rocephin and azithromycin, and also has history of alcohol currently was on Precedex, today patient is off Precedex and sedation, trial to wean the patient off ventilator, patient is present in the room, will continue to monitor and further recommendation to follow. 07/12/2021 interval history: patient with history of COPD with respiratory failure most likely secondary to exacerbation of COPD resulting in hypercarbic initially patient was placed on BiPAP and now on ventilator unable to provide any review of symptom, initially patient did not want intubation however later was convinced by the family patient was intubated. patient is seen by strong nitric operator being treated with methylprednisone and updraft as well as antibiotics with Rocephin and azithromycin, and also has history of alcohol, was on Precedex, today patient is off Precedex, sedated with fentanyl and versed, patient is seen by java oracle developer will continue to monitor and further recommendation to follow. (2) COPD exacerbation: Code(s): J44.1 - Chronic obstructive pulmonary disease with (acute) exacerbation Status: Acute Assessment and Plan: See above (3) Chronic hyponatremia: Code(s): E87.1 - Hypo-osmolality and hyponatremia Status: Acute Assessment and Plan: Sodium improved Patient on IV fluids Monitor sodium and intake/output Check TSH (4) Alcohol withdrawal: Code(s): F10.239 - Alcohol dependence with withdrawal, unspecified Status: Acute Assessment and Plan: Patient was initially transferred to ICU due to alcohol withdrawal which was worsening his respiratory failure Currently sedated with Versed and fentanyl Continue thiamine and folic acid (5) Hypertension: Qualifiers: Hypertension type: unspecified Qualified Code(s): I10 - Essential (primary) hypertension Code(s): I10 - Essential (primary) hypertension Status: Chronic Assessment and Plan: Blood pressure is now in contro
[2021-07-12 18:08] LABS: Glucose Point of Care 190 mg/dl (65-105)
[2021-07-12 23:34] LABS: Glucose Point of Care 196 mg/dl (65-105)
[2021-07-13] VITALS (51 sets, daily range): BP systolic 124–198; BP diastolic 59–107; PULSE 75–110; RESP 16–31; TEMP 36.2–37.3; O2SAT 93–100
[2021-07-13] MEDS: IPRATROPIUM BR 0.02% INH SOLN 0.5 MG/2.5 ML VIAL INHALATION ×4 (01:50→20:54)
[2021-07-13] MEDS: MIDAZOLAM 100MG/NS 100ML(*CRX) 100 MG/100 ML BAG IV CONT (02:11)
[2021-07-13] MEDS: CENTRAL LINE FLUSH 10 ML IV PUSH ×3 (04:19→20:23)
[2021-07-13] MEDS: METOCLOPRAMIDE HCL INJ 10 MG/2 ML VIAL IV PUSH ×4 (04:20→23:19)
[2021-07-13] MEDS: LEVOTHYROXINE SODIUM 50 MCG TABLET FEED TUBE (04:21)
[2021-07-13] MEDS: LEVOTHYROXINE SODIUM 12.5 MCG TABLET FEED TUBE (04:22)
[2021-07-13 04:47] LABS: Hematocrit 36.8 % (42.0-52.0); Hemoglobin 11.9 g/dL (14.0-18.0); Mean Corpuscular HGB Conc 32.3 g/dl (32-36); Mean Corpuscular Hemoglobin 31.9 pg (26-34); Mean Corpuscular Volume 98.7 fl (80-100); Mean Platelet Volume 9.6 fl (7.4-10.4); Platelet Count Result 196 k/mm3 (150-375); Red Blood Count 3.73 M/mm3 (4.6-6.20); Red Cell Distribution Width 13.7 % (11.5-14.5); White Blood Count 8.5 K/mm3 (4.5-10.0)
[2021-07-13 05:04] LABS: Alanine Aminotransferase 52 U/L (4-50); Albumin Level 3.3 g/dL (3.5-5.1); Alkaline Phosphatase 39 U/L (38-126); Anion Gap 2 mmol/L (8-16); Aspartate Amino Transferase 30 U/L (17-59); Bilirubin,Total 0.4 mg/dL (0.2-1.3); Blood Urea Nitrogen 57 mg/dL (9-20); Calcium 8.4 mg/dL (8.4-10.2); Carbon Dioxide 34 mmol/L (22-30); Chloride 101 mmol/L (98-107); Estimated CRCL calculation 81 ml/min; Estimated Glomerular Filt Rate > 60; Glucose 201 mg/dL (65-110); Magnesium 2.9 mg/dL (1.6-2.3); Potassium 4.6 mmol/L (3.4-5.0); Sodium 137 mmol/L (137-145)
[2021-07-13 05:09] LABS: Alveolar/Arterial O2 Gradient 116.9 mmHg; Base Excess ABG 4.9 mEq/l (+/-2.0); Carboxyhemoglobin 0.3 % THb (0-2.0); Fractional Inspired Oxygen 35 %; HCO3 ABG 30.8 mEq/l (22.0-26.0); Methemoglobin ABG 0.3 %THb (0-1.5); Oxygen Content ABG 17.2 %vol (16.0-22.0); Oxygen Saturation ABG 94.7 % (95.0-100.0); Oxyhemoglobin 93.7 % THb (90.0-100.0); PCO2 ABG 50.6 mmHg (35.0-45.0); PO2 ABG 73.8 mmHg (80.0-100.0); PO2 FiO2 Ratio Arterial Blood 2.11 %; Reduced Hemoglobin 5.7 %THb (0-5.0); pH ABG 7.402 (7.350-7.450)
[2021-07-13 05:10] LABS: Device VENTILATOR; Modified Allen's Test Unable to perform; Site Drawn RIGHT RADIAL
[2021-07-13] MEDS: INSULIN ASPART (*BKC) 100 UNITS/ML SUB-Q (05:10)
[2021-07-13 05:11] LABS: Arterial Blood Gas PEEP 0 cmH2O; Arterial Blood Gas Tidal Volume 550 ml; Arterial Blood Gas Vent Mode CMV; Arterial Blood Gas Ventilator rate 16 /MIN
[2021-07-13] MEDS: FLUTICASONE/UMECLIDIN/VILANTER 100-62.5-25 MCG ELLIPTA 1 PUFF INHALATION (08:15)
[2021-07-13] MEDS: amLODIPine BESYLATE 5 MG TABLET PO ×2 (09:01→14:31)
[2021-07-13] MEDS: PANTOPRAZOLE SODIUM IV 40 MG VIAL IV PUSH (09:01)
[2021-07-13] MEDS: ENOXAPARIN 40 MG/0.4 ML SYRINGE SUB-Q (09:01)
[2021-07-13] MEDS: METOPROLOL TARTRATE 25 MG TABLET PO ×2 (09:01→20:21)
[2021-07-13] MEDS: THIAMINE HCL 100 MG TABLET FEED TUBE (09:02)
[2021-07-13] MEDS: ASPIRIN 81 MG CHEWABLE TABLET PO (09:02)
[2021-07-13] MEDS: MINERAL OIL/WHITE PETROLATUM OINTMENT 1 APPLIC EACH EYE ×2 (09:02→20:22)
[2021-07-13] MEDS: methylPREDNISolone SOD SUCC 40 MG VIAL IV PUSH ×2 (09:02→20:22)
[2021-07-13] MEDS: polyethylene glycoL 3350 17 GM POWD.PACK PO (09:02)
[2021-07-13] MEDS: FOLIC ACID 1 MG TABLET FEED TUBE (09:02)
[2021-07-13] MEDS: FENTANYL 2,500MCG/NS250ML(*CRX 2,500 MCG/250 ML BAG IV CONT (09:24)
[2021-07-13] MEDS: dexmedeTOMIDine 400 MCG/100 ML 400 MCG/100 ML BAG IV CONT (10:55)
[2021-07-13 12:07] LABS: Glucose Point of Care 163 mg/dl (65-105)
--- NOTE | 2021-07-13 12:10 | PCFNICU ---
ICU Rounding Note: Pt current nutrition is current with Vital AF 1.2 at 65 ml/hr over 2 hours. Last recorded weight is 82.7 kg, up from 70.8 kg on admit. Bowel Motility:No BM reported, plans for suppository today. Reglan and Miralax have been started. Labs Reviewed:Mg 2.9, BUN 57, Glu 201,Alb 3.3,Hct 36.8,Hgb 11.9 Meds Noted:Synthroid, Solu-Medrol,Folic Acid,Thiamine,Rocephin, Atrovent, Lovenox, Fentanyl, Versed, Xopenex, Zithromax, Reglan Skin: WNL Additional Notes: Patient remains on mechanical vent CMV and tube feedings of Vital AF 1.2 at 65 ml/hr over 22 hours. Free water flush of 30 ml q 4hours. Tolerating tube feedings. Plans for Breathing Trial today. Agree with diet orders. Following daily in ICU rounds. Will reassess every Saturday and Saturday.
[2021-07-13] MEDS: LABETALOL HCL INJ 100 MG/20 ML VIAL 20 MG IV PUSH ×2 (12:22→16:27)
[2021-07-13 12:28] LABS: Glucose Point of Care 186 mg/dl (65-105)
--- NOTE | 2021-07-13 13:43 | WPDINTPN ---
Progress Note: A&P Assessment and Plan (1) Acute respiratory failure with hypoxia and hypercapnia: Code(s): J96.01 - Acute respiratory failure with hypoxia; J96.02 - Acute respiratory failure with hypercapnia Status: Acute Assessment and Plan: Secondary to acute exacerbation of COPD 07/06 placed on BiPAP and was on BiPAP intermittently. 07/09 BiPAP was changed to AVAPS and repeat ABG was improved. 07/09 intubated in the afternoon ABG and chest x-ray reviewed Continues CMV mode of ventilation: Auto PEEP was elevated, decreased his PEEP to 0, increased tidal volume to 500 and decrease the rate to 22. Patient seems to be more comfortable on this setting, I also increased the I to E ratio Echocardiogram reviewed Continue steroids and bronchodilators He is also on empiric antibiotics in the form of Rocephin and azithromycin (initiated on a 07/06) which will be continued Blood and sputum cultures have been sent and are negative for now COVID PCR was negative Will wean fentanyl and Versed infusion, will start Precedex, once awake will place patient on SBT (2) COPD exacerbation: Code(s): J44.1 - Chronic obstructive pulmonary disease with (acute) exacerbation Status: Acute Assessment and Plan: See above (3) Chronic hyponatremia: Code(s): E87.1 - Hypo-osmolality and hyponatremia Status: Acute Assessment and Plan: Sodium improved IV fluids were discontinued on 07/11 Monitor sodium and intake/output TSH within normal limits (4) Alcohol withdrawal: Code(s): F10.239 - Alcohol dependence with withdrawal, unspecified Status: Acute Assessment and Plan: Patient was initially transferred to ICU due to alcohol withdrawal which was worsening his respiratory failure Currently sedated with Versed and fentanyl Continue thiamine and folic acid (5) Hypertension: Qualifiers: Hypertension type: unspecified Qualified Code(s): I10 - Essential (primary) hypertension Code(s): I10 - Essential (primary) hypertension Status: Chronic Assessment and Plan: Patient now hypertensive, will increase amlodipine and metoprolol -continue p.r.n. labetalol (6) CAD (coronary artery disease): Qualifiers: Coronary Disease-Associated Artery/Lesion type: [place] artery [place] vs. transplanted heart: [place] heart Associated angina: without angina Qualified Code(s): I25.10 - Atherosclerotic heart disease of [place] coronary artery without angina pectoris Code(s): I25.10 - Atherosclerotic heart disease of [place] coronary artery without angina pectoris Status: Acute Assessment and Plan: EKG reviewed Continue aspirin beta-shannan and statin His troponin was negative on presentation echo Summary 1. Left ventricular chamber dimension is normal. 2. Left ventricular systolic function is normal, estimated at 60-65%. 3. There is no increased left ventricular wall thickness. 4. The left ventricular diastolic function is abnormal. 5. Right ventricular chamber dimension is severely enlarged. 6. Right ventricular systolic function is reduced. 7. Linear artifact in right ventricle suggestive of catheter(s), pacemaker lead(s), or ICD lead(s). 8. Left atrial chamber dimension is mildly enlarged. 9. Right atrial chamber dimension is mildly enlarged. 10. There is mild mitral valve regurgitation. 11. There is mild tricuspid valve regurgitation. (7) Hypotension: Code(s): I95.9 - Hypotension, unspecified Status: Acute Assessment and Plan: RESOLVED, patient currently hypertensive Patient was transiently hypotensive on admission likely secondary to sedation and mechanical ventilator He was given fluid bolus and his blood pressure improved. Continue to monitor (8) Hypothyroidism: Qualifiers: Hypothyroidism type: unspecified Qualified Code(s): E03.9 - Hypothyroidism, unspecified Code(s): E03.9 - Hyp
[2021-07-13] MEDS: hydrALAZINE HCL 20 MG/ML VIAL IV PUSH ×2 (14:47→20:22)
[2021-07-13 18:11] LABS: Glucose Point of Care 178 mg/dl (65-105)
--- NOTE | 2021-07-13 19:09 | PM.IMPN ---
Progress Note: A&P Assessment and Plan (1) Acute respiratory failure with hypoxia and hypercapnia: Code(s): J96.01 - Acute respiratory failure with hypoxia; J96.02 - Acute respiratory failure with hypercapnia Status: Acute Assessment and Plan: Secondary to acute exacerbation of COPD 07/06 placed on BiPAP and was on BiPAP intermittently. 07/09 BiPAP was changed to AVAPS and repeat ABG was improved. 07/09 intubated in the afternoon Continue pain management per popcorn vendor Echocardiogram reviewed Continue steroids and bronchodilators He is also on empiric antibiotics in the form of Rocephin and azithromycin (initiated on a 07/06) which will be continued Blood and sputum cultures have been sent and are negative for now COVID PCR was negative (2) COPD exacerbation: Code(s): J44.1 - Chronic obstructive pulmonary disease with (acute) exacerbation Status: Acute Assessment and Plan: See above (3) Chronic hyponatremia: Code(s): E87.1 - Hypo-osmolality and hyponatremia Status: Acute Assessment and Plan: Sodium improved IV fluids were discontinued on 07/11 Monitor sodium and intake/output TSH within normal limits (4) Alcohol withdrawal: Code(s): F10.239 - Alcohol dependence with withdrawal, unspecified Status: Acute Assessment and Plan: Patient was initially transferred to ICU due to alcohol withdrawal which was worsening his respiratory failure Currently sedated with Versed and fentanyl Continue thiamine and folic acid On Precedex drip currently (5) Hypertension: Qualifiers: Hypertension type: unspecified Qualified Code(s): I10 - Essential (primary) hypertension Code(s): I10 - Essential (primary) hypertension Status: Chronic Assessment and Plan: Patient now hypertensive, will increase amlodipine and metoprolol -continue p.r.n. labetalol (6) CAD (coronary artery disease): Qualifiers: Coronary Disease-Associated Artery/Lesion type: [place] artery [place] vs. transplanted heart: [place] heart Associated angina: without angina Qualified Code(s): I25.10 - Atherosclerotic heart disease of [place] coronary artery without angina pectoris Code(s): I25.10 - Atherosclerotic heart disease of [place] coronary artery without angina pectoris Status: Acute Assessment and Plan: EKG reviewed Continue aspirin beta-shannan and statin His troponin was negative on presentation echo Summary 1. Left ventricular chamber dimension is normal. 2. Left ventricular systolic function is normal, estimated at 60-65%. 3. There is no increased left ventricular wall thickness. 4. The left ventricular diastolic function is abnormal. 5. Right ventricular chamber dimension is severely enlarged. 6. Right ventricular systolic function is reduced. 7. Linear artifact in right ventricle suggestive of catheter(s), pacemaker lead(s), or ICD lead(s). 8. Left atrial chamber dimension is mildly enlarged. 9. Right atrial chamber dimension is mildly enlarged. 10. There is mild mitral valve regurgitation. 11. There is mild tricuspid valve regurgitation. (7) Hypotension: Code(s): I95.9 - Hypotension, unspecified Status: Acute Assessment and Plan: RESOLVED, patient currently hypertensive Patient was transiently hypotensive on admission likely secondary to sedation and mechanical ventilator He was given fluid bolus and his blood pressure improved. Continue to monitor (8) Hypothyroidism: Qualifiers: Hypothyroidism type: unspecified Qualified Code(s): E03.9 - Hypothyroidism, unspecified Code(s): E03.9 - Hypothyroidism, unspecified Status: Chronic Assessment and Plan: Continue levothyroxine per tube Additional Plan DVT prophylaxis : Lovenox Stress ulcer prophylaxis: Protonix Nutrition -tube feeds Code Status -patient is DNR and does not want tracheostomy or prolonged mecha
[2021-07-13] MEDS: dexmedeTOMIDine 400 MCG/100 ML 400 MCG/100 ML BAG 14.47 MCG IV CONT (21:08)
[2021-07-13 23:25] LABS: Glucose Point of Care 197 mg/dl (65-105)
[2021-07-14] VITALS (45 sets, daily range): BP systolic 121–171; BP diastolic 61–90; PULSE 75–113; RESP 14–28; TEMP 36.3–37.4; O2SAT 94–98
[2021-07-14] MEDS: dexmedeTOMIDine 400 MCG/100 ML 400 MCG/100 ML BAG 20.68 MCG IV CONT (00:53)
[2021-07-14] MEDS: IPRATROPIUM BR 0.02% INH SOLN 0.5 MG/2.5 ML VIAL INHALATION ×4 (02:47→19:49)
[2021-07-14 05:17] LABS: Alveolar/Arterial O2 Gradient 96.3 mmHg; Base Excess ABG 4.2 mEq/l (+/-2.0); Carboxyhemoglobin 0.3 % THb (0-2.0); Fractional Inspired Oxygen 35 %; HCO3 ABG 29.7 mEq/l (22.0-26.0); Methemoglobin ABG 0.2 %THb (0-1.5); Oxygen Content ABG 18.3 %vol (16.0-22.0); Oxygen Saturation ABG 97.4 % (95.0-100.0); Oxyhemoglobin 96.4 % THb (90.0-100.0); PCO2 ABG 47.7 mmHg (35.0-45.0); PO2 ABG 97.8 mmHg (80.0-100.0); PO2 FiO2 Ratio Arterial Blood 2.79 %; Reduced Hemoglobin 3.1 %THb (0-5.0); Total Hemoglobin 13.4 g/dL (12.0-18.0); pH ABG 7.412 (7.350-7.450)
[2021-07-14 05:18] LABS: Device VENTILATOR; Modified Allen's Test Unable to perform; Site Drawn RIGHT RADIAL
[2021-07-14 05:19] LABS: Arterial Blood Gas PEEP 0 cmH2O; Arterial Blood Gas Tidal Volume 550 ml; Arterial Blood Gas Vent Mode CMV; Arterial Blood Gas Ventilator rate 16 /MIN
[2021-07-14] MEDS: METOCLOPRAMIDE HCL INJ 10 MG/2 ML VIAL IV PUSH (05:29)
[2021-07-14] MEDS: CENTRAL LINE FLUSH 10 ML IV PUSH ×3 (05:29→21:18)
[2021-07-14] MEDS: LEVOTHYROXINE SODIUM 50 MCG TABLET FEED TUBE (05:29)
[2021-07-14] MEDS: LEVOTHYROXINE SODIUM 12.5 MCG TABLET FEED TUBE (05:30)
[2021-07-14 05:40] LABS: Basophils Percent Auto 0.1 % (0.2-1.2); Hematocrit 38.4 % (42.0-52.0); Hemoglobin 12.1 g/dL (14.0-18.0); Immature Granulocyte Absolute 0.15 K/mm3 (0.00-0.031); Immature Granulocyte Percent A 1.4 % (0-0.5); Lymphocytes Absolute Auto 0.23 K/mm3 (0.9-3.2); Lymphocytes Percent Auto 2.1 % (18.3-44.2); Mean Corpuscular HGB Conc 31.5 g/dl (32-36); Mean Corpuscular Hemoglobin 31.7 pg (26-34); Mean Corpuscular Volume 100.5 fl (80-100); Mean Platelet Volume 9.6 fl (7.4-10.4); Monocytes Absolute Auto 0.4 K/mm3 (0.1-0.6); Monocytes Percent Auto 3.8 % (2.6-8.5); Neutrophils Percent Auto 92.6 % (45.5-73.1); Platelet Count Result 206 k/mm3 (150-375); Red Blood Count 3.82 M/mm3 (4.6-6.20); Red Cell Distribution Width 13.7 % (11.5-14.5); White Blood Count 10.8 K/mm3 (4.5-10.0)
[2021-07-14] MEDS: dexmedeTOMIDine 400 MCG/100 ML 400 MCG/100 ML BAG 6.2 MCG IV CONT (05:44)
[2021-07-14 05:50] LABS: Alanine Aminotransferase 64 U/L (4-50); Alkaline Phosphatase 45 U/L (38-126); Anion Gap 3 mmol/L (8-16); Aspartate Amino Transferase 31 U/L (17-59); Bilirubin,Total 0.5 mg/dL (0.2-1.3); Blood Urea Nitrogen 60 mg/dL (9-20); Calcium 8.1 mg/dL (8.4-10.2); Carbon Dioxide 32 mmol/L (22-30); Chloride 97 mmol/L (98-107); Estimated CRCL calculation 81 ml/min; Estimated Glomerular Filt Rate > 60; Glucose 337 mg/dL (65-110); Magnesium 2.5 mg/dL (1.6-2.3); Phosphorus 3.8 mg/dL (2.5-4.5); Potassium 4.4 mmol/L (3.4-5.0); Sodium 132 mmol/L (137-145)
[2021-07-14] MEDS: INSULIN ASPART (*BKC) 100 UNITS/ML SUB-Q ×2 (06:04→17:55)
[2021-07-14 06:08] LABS: Glucose Point of Care 242 mg/dl (65-105)
[2021-07-14] MEDS: ENOXAPARIN 40 MG/0.4 ML SYRINGE SUB-Q (09:24)
[2021-07-14] MEDS: ASPIRIN 81 MG CHEWABLE TABLET PO (09:24)
[2021-07-14] MEDS: MINERAL OIL/WHITE PETROLATUM OINTMENT 1 APPLIC EACH EYE ×2 (09:24→21:19)
[2021-07-14] MEDS: PANTOPRAZOLE SODIUM IV 40 MG VIAL IV PUSH (09:25)
[2021-07-14] MEDS: METOPROLOL TARTRATE 25 MG TABLET PO ×2 (09:25→21:17)
[2021-07-14] MEDS: amLODIPine BESYLATE 5 MG TABLET 10 MG PO (09:25)
[2021-07-14] MEDS: FOLIC ACID 1 MG TABLET FEED TUBE (09:25)
[2021-07-14] MEDS: THIAMINE HCL 100 MG TABLET FEED TUBE (09:25)
[2021-07-14] MEDS: methylPREDNISolone SOD SUCC 40 MG VIAL IV PUSH ×2 (09:25→21:18)
[2021-07-14 11:58] LABS: Glucose Point of Care 127 mg/dl (65-105)
--- NOTE | 2021-07-14 12:17 | PCNFU ---
Nutrition Follow-Up Complete: Less than optimal enteral nutrition composition as related to intake from enteral nutrients as evidenced by current tube feeding rate. goal: Meet estimated nutritional needs Patient is progressing towards goal. We will continue current goal. Pt current nutrition is Vital AF 1.2 at 65 ml/hr over 22 hours. Last recorded weight is 82.3 kg, up from 70.8 kg on admit. Bowel Motility:+Bm reported 07/14 Labs Reviewed:Glu 337, Cr 0.6, BUN 60,Na 132, Alb 3.0,Hgb 12.0, Hct 38.4 Meds Noted:Synthroid, Solu-Medrol,Folic Acid,Thiamine,Rocephin, Atrovent, Lovenox,Xopenex, Zithromax, Reglan, Precedex. Skin: WNL Additional Notes: Patient remains on mechanical vent ASV mode and tube feedings of Vital AF 1.2 at 65 ml/hr over 22 hours. Current tube feeding providing 1716 kcals/107 gms protein/1160 ml water. Meeting 100% caloric needs/100% protein needs. Free water flush 30 ml q 4 hours. Agree with diet orders. Will monitor in ICU rounds and reassess every Saturday and Saturday.
[2021-07-14] MEDS: hydrALAZINE HCL 20 MG/ML VIAL IV PUSH (13:02)
--- NOTE | 2021-07-14 13:24 | WPDINTPN ---
Progress Note: A&P Assessment and Plan (1) Acute respiratory failure with hypoxia and hypercapnia: Code(s): J96.01 - Acute respiratory failure with hypoxia; J96.02 - Acute respiratory failure with hypercapnia Status: Acute Assessment and Plan: Secondary to acute exacerbation of COPD 07/06 placed on BiPAP and was on BiPAP intermittently. 07/09 BiPAP was changed to AVAPS and repeat ABG was improved. 07/09 intubated in the afternoon ABG and chest x-ray reviewed Continues CMV mode of ventilation: Peep of 0 and FiO2 of 35%. Patient has been placed on ASV mode of ventilation, he was also placed on pressure support ventilation 02/26 and patient was tachypneic, tachycardic and was in respiratory distress with switched him to ASV mode. Echocardiogram reviewed Continue steroids and bronchodilators Patient has thick yellow to sandoval colored secretions from the ET tube. Antibiotics switched to vancomycin and cefepime (07/14) -07/14: repeat sputum culture -07/06: Blood and sputum cultures are negative COVID PCR was negative Continue Precedex infusion (2) COPD exacerbation: Code(s): J44.1 - Chronic obstructive pulmonary disease with (acute) exacerbation Status: Acute Assessment and Plan: See above (3) Chronic hyponatremia: Code(s): E87.1 - Hypo-osmolality and hyponatremia Status: Acute Assessment and Plan: Sodium improved IV fluids were discontinued on 07/11 Monitor sodium and intake/output TSH within normal limits (4) Alcohol withdrawal: Code(s): F10.239 - Alcohol dependence with withdrawal, unspecified Status: Acute Assessment and Plan: Patient was initially transferred to ICU due to alcohol withdrawal which was worsening his respiratory failure Currently sedated with Versed and fentanyl Continue thiamine and folic acid (5) Hypertension: Qualifiers: Hypertension type: unspecified Qualified Code(s): I10 - Essential (primary) hypertension Code(s): I10 - Essential (primary) hypertension Status: Chronic Assessment and Plan: Patient now hypertensive, continue amlodipine and metoprolol -continue p.r.n. labetalol and hydralazine (6) CAD (coronary artery disease): Qualifiers: Associated angina: without angina Coronary Disease-Associated Artery/Lesion type: [place] artery [place] vs. transplanted heart: [place] heart Qualified Code(s): I25.10 - Atherosclerotic heart disease of [place] coronary artery without angina pectoris Code(s): I25.10 - Atherosclerotic heart disease of [place] coronary artery without angina pectoris Status: Acute Assessment and Plan: EKG reviewed Continue aspirin beta-shannan and statin His troponin was negative on presentation echo Summary 1. Left ventricular chamber dimension is normal. 2. Left ventricular systolic function is normal, estimated at 60-65%. 3. There is no increased left ventricular wall thickness. 4. The left ventricular diastolic function is abnormal. 5. Right ventricular chamber dimension is severely enlarged. 6. Right ventricular systolic function is reduced. 7. Linear artifact in right ventricle suggestive of catheter(s), pacemaker lead(s), or ICD lead(s). 8. Left atrial chamber dimension is mildly enlarged. 9. Right atrial chamber dimension is mildly enlarged. 10. There is mild mitral valve regurgitation. 11. There is mild tricuspid valve regurgitation. (7) Hypotension: Code(s): I95.9 - Hypotension, unspecified Status: Acute Assessment and Plan: RESOLVED, patient currently hypertensive Patient was transiently hypotensive on admission likely secondary to sedation and mechanical ventilator He was given fluid bolus and his blood pressure improved. Continue to monitor (8) Hypothyroidism: Qualifiers: Hypothyroidism type: unspecified Qualified Code(s): E03.9 - Hypothyroidism, unspecified Code(s): E03.9 - Hyp
--- NOTE | 2021-07-14 14:17 | PM.IMPN ---
Progress Note: A&P Assessment and Plan (1) Acute respiratory failure with hypoxia and hypercapnia: Code(s): J96.01 - Acute respiratory failure with hypoxia; J96.02 - Acute respiratory failure with hypercapnia Status: Acute Assessment and Plan: Secondary to acute exacerbation of COPD 07/06 placed on BiPAP and was on BiPAP intermittently. 07/09 BiPAP was changed to AVAPS and repeat ABG was improved. Patient intubated 07/09/2021 Continue pain management per roll mechanic Echocardiogram reviewed Continue steroids and bronchodilators He is also on empiric antibiotics in the form of Rocephin and azithromycin (initiated on a 07/06) which will be continued. Antibiotic has been switched to vancomycin cefepime on 07/14/2021 and sputum culture sent Blood and sputum cultures have been sent and are negative for now COVID PCR was negative (2) COPD exacerbation: Code(s): J44.1 - Chronic obstructive pulmonary disease with (acute) exacerbation Status: Acute Assessment and Plan: See above (3) Chronic hyponatremia: Code(s): E87.1 - Hypo-osmolality and hyponatremia Status: Acute Assessment and Plan: Sodium improved IV fluids were discontinued on 07/11 Monitor sodium and intake/output TSH within normal limits (4) Alcohol withdrawal: Code(s): F10.239 - Alcohol dependence with withdrawal, unspecified Status: Acute Assessment and Plan: Patient was initially transferred to ICU due to alcohol withdrawal which was worsening his respiratory failure Currently sedated with Versed and fentanyl Continue thiamine and folic acid On Precedex drip currently (5) Hypertension: Qualifiers: Hypertension type: unspecified Qualified Code(s): I10 - Essential (primary) hypertension Code(s): I10 - Essential (primary) hypertension Status: Chronic Assessment and Plan: Patient now hypertensive, will increase amlodipine and metoprolol -continue p.r.n. labetalol (6) CAD (coronary artery disease): Qualifiers: Coronary Disease-Associated Artery/Lesion type: [place] artery [place] vs. transplanted heart: [place] heart Associated angina: without angina Qualified Code(s): I25.10 - Atherosclerotic heart disease of [place] coronary artery without angina pectoris Code(s): I25.10 - Atherosclerotic heart disease of [place] coronary artery without angina pectoris Status: Acute Assessment and Plan: EKG reviewed Continue aspirin beta-shannan and statin His troponin was negative on presentation echo Summary 1. Left ventricular chamber dimension is normal. 2. Left ventricular systolic function is normal, estimated at 60-65%. 3. There is no increased left ventricular wall thickness. 4. The left ventricular diastolic function is abnormal. 5. Right ventricular chamber dimension is severely enlarged. 6. Right ventricular systolic function is reduced. 7. Linear artifact in right ventricle suggestive of catheter(s), pacemaker lead(s), or ICD lead(s). 8. Left atrial chamber dimension is mildly enlarged. 9. Right atrial chamber dimension is mildly enlarged. 10. There is mild mitral valve regurgitation. 11. There is mild tricuspid valve regurgitation. (7) Hypotension: Code(s): I95.9 - Hypotension, unspecified Status: Acute Assessment and Plan: RESOLVED, patient currently hypertensive Patient was transiently hypotensive on admission likely secondary to sedation and mechanical ventilator He was given fluid bolus and his blood pressure improved. Continue to monitor (8) Hypothyroidism: Qualifiers: Hypothyroidism type: unspecified Qualified Code(s): E03.9 - Hypothyroidism, unspecified Code(s): E03.9 - Hypothyroidism, unspecified Status: Chronic Assessment and Plan: Continue levothyroxine per tube Additional Plan DVT prophylaxis : Lovenox Stress ulcer prophylaxis: Protonix Nutrition
[2021-07-14] MEDS: LABETALOL HCL INJ 100 MG/20 ML VIAL 20 MG IV PUSH (15:31)
[2021-07-14] MEDS: dexmedeTOMIDine 400 MCG/100 ML 400 MCG/100 ML BAG 14.47 MCG IV CONT (15:54)
[2021-07-14 18:05] LABS: Glucose Point of Care 214 mg/dl (65-105)
[2021-07-14] MEDS: DORNASE ALFA INH SOLN 1 MG/ML 2.5 ML AMP 2.5 MG INHALATION (19:48)
[2021-07-14] MEDS: BUDESONIDE RESPULE NEB 0.5 MG/2 ML AMP INHALATION (19:48)
[2021-07-14] MEDS: dexmedeTOMIDine 400 MCG/100 ML 400 MCG/100 ML BAG 10.34 MCG IV CONT (23:11)
[2021-07-14 23:21] LABS: Glucose Point of Care 148 mg/dl (65-105)
[2021-07-15] VITALS (35 sets, daily range): BP systolic 119–186; BP diastolic 61–91; PULSE 75–104; RESP 12–26; TEMP 36.9–37.5; O2SAT 93–99
[2021-07-15] MEDS: IPRATROPIUM BR 0.02% INH SOLN 0.5 MG/2.5 ML VIAL INHALATION ×4 (01:46→20:15)
[2021-07-15 05:03] LABS: Alveolar/Arterial O2 Gradient 59.7 mmHg; Base Excess ABG 6.2 mEq/l (+/-2.0); Carboxyhemoglobin 0.3 % THb (0-2.0); Fractional Inspired Oxygen 35 %; HCO3 ABG 31.9 mEq/l (22.0-26.0); Methemoglobin ABG 0.3 %THb (0-1.5); Oxygen Content ABG 18.7 %vol (16.0-22.0); Oxygen Saturation ABG 98.6 % (95.0-100.0); Oxyhemoglobin 97.2 % THb (90.0-100.0); PCO2 ABG 50.7 mmHg (35.0-45.0); PO2 ABG 130.9 mmHg (80.0-100.0); PO2 FiO2 Ratio Arterial Blood 3.74 %; Reduced Hemoglobin 2.2 %THb (0-5.0); Total Hemoglobin 13.5 g/dL (12.0-18.0); pH ABG 7.417 (7.350-7.450)
[2021-07-15 05:04] LABS: Device VENTILATOR; Modified Allen's Test Unable to perform; Site Drawn RIGHT RADIAL
[2021-07-15 05:05] LABS: Arterial Blood Gas PEEP 0 cmH2O; Arterial Blood Gas Tidal Volume 550 ml; Arterial Blood Gas Vent Mode CMV; Arterial Blood Gas Ventilator rate 16 /MIN
[2021-07-15 05:45] LABS: Basophils Percent Auto 0.2 % (0.2-1.2); Hematocrit 40.6 % (42.0-52.0); Immature Granulocyte Absolute 0.17 K/mm3 (0.00-0.031); Lymphocytes Absolute Auto 0.37 K/mm3 (0.9-3.2); Lymphocytes Percent Auto 2.1 % (18.3-44.2); Mean Corpuscular Hemoglobin 31.6 pg (26-34); Mean Corpuscular Volume 98.8 fl (80-100); Mean Platelet Volume 9.6 fl (7.4-10.4); Monocytes Absolute Auto 0.6 K/mm3 (0.1-0.6); Monocytes Percent Auto 3.5 % (2.6-8.5); Neutrophils Absolute Auto 16.6 K/mm3 (1.3-6.7); Neutrophils Percent Auto 93.2 % (45.5-73.1); Platelet Count Result 268 k/mm3 (150-375); Red Blood Count 4.11 M/mm3 (4.6-6.20); Red Cell Distribution Width 13.8 % (11.5-14.5); White Blood Count 17.7 K/mm3 (4.5-10.0)
[2021-07-15 05:55] LABS: Alanine Aminotransferase 58 U/L (4-50); Albumin Level 3.4 g/dL (3.5-5.1); Alkaline Phosphatase 47 U/L (38-126); Anion Gap 3 mmol/L (8-16); Aspartate Amino Transferase 31 U/L (17-59); Bilirubin,Total 0.4 mg/dL (0.2-1.3); Blood Urea Nitrogen 61 mg/dL (9-20); Calcium 8.3 mg/dL (8.4-10.2); Carbon Dioxide 32 mmol/L (22-30); Chloride 98 mmol/L (98-107); Estimated CRCL calculation 81 ml/min; Estimated Glomerular Filt Rate > 60; Glucose 224 mg/dL (65-110); Magnesium 2.8 mg/dL (1.6-2.3); Potassium 5.2 mmol/L (3.4-5.0); Sodium 133 mmol/L (137-145)
[2021-07-15] MEDS: CENTRAL LINE FLUSH 10 ML IV PUSH ×3 (06:07→21:15)
[2021-07-15] MEDS: LEVOTHYROXINE SODIUM 12.5 MCG TABLET FEED TUBE (06:07)
[2021-07-15] MEDS: LEVOTHYROXINE SODIUM 50 MCG TABLET FEED TUBE (06:07)
[2021-07-15 06:09] LABS: Glucose Point of Care 240 mg/dl (65-105)
[2021-07-15] MEDS: INSULIN ASPART (*BKC) 100 UNITS/ML SUB-Q ×3 (06:09→23:43)
[2021-07-15] MEDS: hydrALAZINE HCL 20 MG/ML VIAL IV PUSH (06:34)
[2021-07-15] MEDS: BUDESONIDE RESPULE NEB 0.5 MG/2 ML AMP INHALATION ×2 (07:41→20:15)
[2021-07-15] MEDS: DORNASE ALFA INH SOLN 1 MG/ML 2.5 ML AMP 2.5 MG INHALATION ×2 (07:41→20:15)
[2021-07-15] MEDS: ASPIRIN 81 MG CHEWABLE TABLET PO (09:06)
[2021-07-15] MEDS: PANTOPRAZOLE SODIUM IV 40 MG VIAL IV PUSH (09:06)
[2021-07-15] MEDS: METOPROLOL TARTRATE 50 MG TAB PO ×2 (09:06→21:19)
[2021-07-15] MEDS: FOLIC ACID 1 MG TABLET FEED TUBE (09:07)
[2021-07-15] MEDS: MINERAL OIL/WHITE PETROLATUM OINTMENT 1 APPLIC EACH EYE ×2 (09:07→21:12)
[2021-07-15] MEDS: ENOXAPARIN 40 MG/0.4 ML SYRINGE SUB-Q (09:08)
[2021-07-15] MEDS: THIAMINE HCL 100 MG TABLET FEED TUBE (09:08)
[2021-07-15] MEDS: amLODIPine BESYLATE 5 MG TABLET 10 MG PO (09:08)
[2021-07-15] MEDS: dexmedeTOMIDine 400 MCG/100 ML 400 MCG/100 ML BAG 8.27 MCG IV CONT ×2 (09:09→21:13)
[2021-07-15] MEDS: methylPREDNISolone SOD SUCC 40 MG VIAL IV PUSH ×2 (09:16→21:16)
[2021-07-15] MEDS: FUROSEMIDE INJ 40 MG/4 ML VIAL IV PUSH (10:57)
[2021-07-15 11:27] LABS: Glucose Point of Care 207 mg/dl (65-105)
--- NOTE | 2021-07-15 11:53 | WPDINTPN ---
Progress Note: A&P Assessment and Plan (1) Acute respiratory failure with hypoxia and hypercapnia: Code(s): J96.01 - Acute respiratory failure with hypoxia; J96.02 - Acute respiratory failure with hypercapnia Status: Acute Assessment and Plan: Secondary to acute exacerbation of COPD 07/06 placed on BiPAP and was on BiPAP intermittently. 07/09 BiPAP was changed to AVAPS and repeat ABG was improved. 07/09 intubated in the afternoon ABG and chest x-ray reviewed Continues CMV mode of ventilation, mean airway pressures have been 25-30, will add peep of 5 and continue FiO2 of 35%. -will place patient on ASV. Echocardiogram reviewed Wean steroids Continue bronchodilators Patient has thick yellow to sandoval colored secretions from the ET tube. Antibiotics switched to vancomycin and cefepime (07/14) -07/14: repeat sputum culture pending -07/06: Blood and sputum cultures are negative COVID PCR was negative Continue Precedex infusion Upper and lower extremity swelling, will diurese today with Lasix (2) COPD exacerbation: Code(s): J44.1 - Chronic obstructive pulmonary disease with (acute) exacerbation Status: Acute Assessment and Plan: See above (3) Chronic hyponatremia: Code(s): E87.1 - Hypo-osmolality and hyponatremia Status: Acute Assessment and Plan: Sodium improved IV fluids were discontinued on 07/11 Monitor sodium and intake/output TSH within normal limits (4) Alcohol withdrawal: Code(s): F10.239 - Alcohol dependence with withdrawal, unspecified Status: Acute Assessment and Plan: Patient was initially transferred to ICU due to alcohol withdrawal which was worsening his respiratory failure Currently sedated with Versed and fentanyl Continue thiamine and folic acid (5) Hypertension: Qualifiers: Hypertension type: unspecified Qualified Code(s): I10 - Essential (primary) hypertension Code(s): I10 - Essential (primary) hypertension Status: Chronic Assessment and Plan: Patient now hypertensive, continue amlodipine and increase metoprolol -continue p.r.n. labetalol and hydralazine (6) CAD (coronary artery disease): Qualifiers: Coronary Disease-Associated Artery/Lesion type: [place] artery [place] vs. transplanted heart: [place] heart Associated angina: without angina Qualified Code(s): I25.10 - Atherosclerotic heart disease of [place] coronary artery without angina pectoris Code(s): I25.10 - Atherosclerotic heart disease of [place] coronary artery without angina pectoris Status: Acute Assessment and Plan: EKG reviewed Continue aspirin beta-shannan and statin His troponin was negative on presentation echo Summary 1. Left ventricular chamber dimension is normal. 2. Left ventricular systolic function is normal, estimated at 60-65%. 3. There is no increased left ventricular wall thickness. 4. The left ventricular diastolic function is abnormal. 5. Right ventricular chamber dimension is severely enlarged. 6. Right ventricular systolic function is reduced. 7. Linear artifact in right ventricle suggestive of catheter(s), pacemaker lead(s), or ICD lead(s). 8. Left atrial chamber dimension is mildly enlarged. 9. Right atrial chamber dimension is mildly enlarged. 10. There is mild mitral valve regurgitation. 11. There is mild tricuspid valve regurgitation. (7) Hypotension: Code(s): I95.9 - Hypotension, unspecified Status: Acute Assessment and Plan: RESOLVED, patient currently hypertensive Patient was transiently hypotensive on admission likely secondary to sedation and mechanical ventilator He was given fluid bolus and his blood pressure improved. Continue to monitor (8) Hypothyroidism: Qualifiers: Hypothyroidism type: unspecified Qualified Code(s): E03.9 - Hypothyroidism, unspecified Code(s): E03.9 - Hypothyroidism, unspecified Status
--- NOTE | 2021-07-15 15:28 | PM.IMPN ---
Progress Note: A&P Assessment and Plan (1) Acute respiratory failure with hypoxia and hypercapnia: Code(s): J96.01 - Acute respiratory failure with hypoxia; J96.02 - Acute respiratory failure with hypercapnia Status: Acute Assessment and Plan: Secondary to acute exacerbation of COPD 07/06 placed on BiPAP and was on BiPAP intermittently. 07/09 BiPAP was changed to AVAPS and repeat ABG was improved. Patient intubated 07/09/2021 Continue pain management per manager of marketing Echocardiogram reviewed Continue steroids and bronchodilators He is also on empiric antibiotics in the form of Rocephin and azithromycin (initiated on a 07/06) which will be continued. Antibiotic has been switched to vancomycin cefepime on 07/14/2021 and sputum culture sent. Sputum culture with Gram-positive cocci in clusters WBC count worsened 07/15/2021 Blood and sputum cultures have been sent and are negative for now COVID PCR was negative (2) COPD exacerbation: Code(s): J44.1 - Chronic obstructive pulmonary disease with (acute) exacerbation Status: Acute Assessment and Plan: See above (3) Chronic hyponatremia: Code(s): E87.1 - Hypo-osmolality and hyponatremia Status: Acute Assessment and Plan: Sodium improved IV fluids were discontinued on 07/11 Monitor sodium and intake/output TSH within normal limits (4) Alcohol withdrawal: Code(s): F10.239 - Alcohol dependence with withdrawal, unspecified Status: Acute Assessment and Plan: Patient was initially transferred to ICU due to alcohol withdrawal which was worsening his respiratory failure Currently sedated with Versed and fentanyl Continue thiamine and folic acid On Precedex drip currently (5) Hypertension: Qualifiers: Hypertension type: unspecified Qualified Code(s): I10 - Essential (primary) hypertension Code(s): I10 - Essential (primary) hypertension Status: Chronic Assessment and Plan: Patient now hypertensive, will increase amlodipine and metoprolol -continue p.r.n. labetalol (6) CAD (coronary artery disease): Qualifiers: Associated angina: without angina Coronary Disease-Associated Artery/Lesion type: [place] artery [place] vs. transplanted heart: [place] heart Qualified Code(s): I25.10 - Atherosclerotic heart disease of [place] coronary artery without angina pectoris Code(s): I25.10 - Atherosclerotic heart disease of [place] coronary artery without angina pectoris Status: Acute Assessment and Plan: EKG reviewed Continue aspirin beta-shannan and statin His troponin was negative on presentation echo Summary 1. Left ventricular chamber dimension is normal. 2. Left ventricular systolic function is normal, estimated at 60-65%. 3. There is no increased left ventricular wall thickness. 4. The left ventricular diastolic function is abnormal. 5. Right ventricular chamber dimension is severely enlarged. 6. Right ventricular systolic function is reduced. 7. Linear artifact in right ventricle suggestive of catheter(s), pacemaker lead(s), or ICD lead(s). 8. Left atrial chamber dimension is mildly enlarged. 9. Right atrial chamber dimension is mildly enlarged. 10. There is mild mitral valve regurgitation. 11. There is mild tricuspid valve regurgitation. (7) Hypotension: Code(s): I95.9 - Hypotension, unspecified Status: Acute Assessment and Plan: RESOLVED, patient currently hypertensive Patient was transiently hypotensive on admission likely secondary to sedation and mechanical ventilator He was given fluid bolus and his blood pressure improved. Continue to monitor (8) Hypothyroidism: Qualifiers: Hypothyroidism type: unspecified Qualified Code(s): E03.9 - Hypothyroidism, unspecified Code(s): E03.9 - Hypothyroidism, unspecified Status: Chronic Assessment and Plan: Continue levothyroxine per tube Addit
[2021-07-15 18:03] LABS: Glucose Point of Care 198 mg/dl (65-105)
[2021-07-15 23:45] LABS: Glucose Point of Care 229 mg/dl (65-105)
[2021-07-16] VITALS (33 sets, daily range): BP systolic 86–144; BP diastolic 56–111; PULSE 75–89; RESP 8–24; TEMP 36.2–36.9; O2SAT 93–98
[2021-07-16 02:14] LABS: Basophils Percent Auto 0.2 % (0.2-1.2); Hematocrit 40.4 % (42.0-52.0); Hemoglobin 12.8 g/dL (14.0-18.0); Immature Granulocyte Absolute 0.13 K/mm3 (0.00-0.031); Immature Granulocyte Percent A 0.8 % (0-0.5); Lymphocytes Absolute Auto 0.29 K/mm3 (0.9-3.2); Lymphocytes Percent Auto 1.8 % (18.3-44.2); Mean Corpuscular HGB Conc 31.7 g/dl (32-36); Mean Corpuscular Hemoglobin 31.5 pg (26-34); Mean Corpuscular Volume 99.5 fl (80-100); Mean Platelet Volume 9.7 fl (7.4-10.4); Monocytes Absolute Auto 0.5 K/mm3 (0.1-0.6); Monocytes Percent Auto 2.9 % (2.6-8.5); Neutrophils Absolute Auto 14.8 K/mm3 (1.3-6.7); Neutrophils Percent Auto 94.3 % (45.5-73.1); Platelet Count Result 241 k/mm3 (150-375); Red Blood Count 4.06 M/mm3 (4.6-6.20); Red Cell Distribution Width 13.8 % (11.5-14.5); White Blood Count 15.7 K/mm3 (4.5-10.0)
[2021-07-16] MEDS: IPRATROPIUM BR 0.02% INH SOLN 0.5 MG/2.5 ML VIAL INHALATION ×3 (02:22→20:20)
[2021-07-16 02:25] LABS: Alanine Aminotransferase 50 U/L (4-50); Alkaline Phosphatase 37 U/L (38-126); Anion Gap 0 mmol/L (8-16); Aspartate Amino Transferase 32 U/L (17-59); Bilirubin,Total 0.7 mg/dL (0.2-1.3); Blood Urea Nitrogen 65 mg/dL (9-20); Calcium 8.1 mg/dL (8.4-10.2); Carbon Dioxide 37 mmol/L (22-30); Chloride 95 mmol/L (98-107); Estimated CRCL calculation 95 ml/min; Estimated Glomerular Filt Rate > 60; Glucose 206 mg/dL (65-110); Magnesium 2.7 mg/dL (1.6-2.3); Potassium 5.2 mmol/L (3.4-5.0); Sodium 132 mmol/L (137-145)
[2021-07-16 02:41] LABS: Vancomycin Trough 11.3 ug/mL (10.0-20.0)
[2021-07-16 05:48] LABS: Alveolar/Arterial O2 Gradient 73.4 mmHg; Base Excess ABG 8.2 mEq/l (+/-2.0); Carboxyhemoglobin 0.3 % THb (0-2.0); Fractional Inspired Oxygen 30 %; HCO3 ABG 33.2 mEq/l (22.0-26.0); Methemoglobin ABG 0.3 %THb (0-1.5); Oxygen Content ABG 17.9 %vol (16.0-22.0); Oxygen Saturation ABG 96.8 % (95.0-100.0); Oxyhemoglobin 95.3 % THb (90.0-100.0); PCO2 ABG 47.4 mmHg (35.0-45.0); PO2 ABG 84.8 mmHg (80.0-100.0); PO2 FiO2 Ratio Arterial Blood 2.83 %; Reduced Hemoglobin 4.1 %THb (0-5.0); Total Hemoglobin 13.3 g/dL (12.0-18.0); pH ABG 7.463 (7.350-7.450)
[2021-07-16] MEDS: CENTRAL LINE FLUSH 10 ML IV PUSH ×3 (05:49→20:46)
[2021-07-16] MEDS: LEVOTHYROXINE SODIUM 12.5 MCG TABLET FEED TUBE (05:52)
[2021-07-16] MEDS: LEVOTHYROXINE SODIUM 50 MCG TABLET FEED TUBE (05:52)
[2021-07-16 05:54] LABS: Glucose Point of Care 234 mg/dl (65-105)
[2021-07-16] MEDS: INSULIN ASPART (*BKC) 100 UNITS/ML SUB-Q ×2 (05:54→17:10)
[2021-07-16 05:55] LABS: Device VENTILATOR; Modified Allen's Test Unable to perform; Site Drawn LEFT RADIAL
[2021-07-16 05:56] LABS: Arterial Blood Gas Vent Mode CMV; Arterial Blood Gas Ventilator rate 16 /MIN
[2021-07-16 05:57] LABS: Arterial Blood Gas PEEP 5 cmH2O; Arterial Blood Gas Tidal Volume 550 ml
[2021-07-16] MEDS: dexmedeTOMIDine 400 MCG/100 ML 400 MCG/100 ML BAG 12.41 MCG IV CONT (07:30)
[2021-07-16] MEDS: BUDESONIDE RESPULE NEB 0.5 MG/2 ML AMP INHALATION ×2 (08:13→20:20)
[2021-07-16] MEDS: DORNASE ALFA INH SOLN 1 MG/ML 2.5 ML AMP 2.5 MG INHALATION ×2 (08:14→20:20)
--- NOTE | 2021-07-16 09:18 | WPDINTPN ---
Progress Note: A&P Assessment and Plan (1) Acute respiratory failure with hypoxia and hypercapnia: Code(s): J96.01 - Acute respiratory failure with hypoxia; J96.02 - Acute respiratory failure with hypercapnia Status: Acute Assessment and Plan: Secondary to acute exacerbation of COPD 07/06 placed on BiPAP and was on BiPAP intermittently. 07/09 BiPAP was changed to AVAPS and repeat ABG was improved. 07/09 intubated in the afternoon ABG and chest x-ray reviewed Continues CMV mode of ventilation, peep of 5 in 35% FiO2. -placed patient on PSV 12/5, will wean to 10/5 as tolerated evaluate for extubation Echocardiogram reviewed Wean steroids Continue bronchodilators Patient has thick yellow to sandoval colored secretions from the ET tube. Antibiotics switched to vancomycin and cefepime (07/14) -07/14: repeat sputum culture pending -07/06: Blood and sputum cultures are negative COVID PCR was negative Continue Precedex infusion Upper and lower extremity swelling, responded well to diuresis will diurese again today 07/16 (2) COPD exacerbation: Code(s): J44.1 - Chronic obstructive pulmonary disease with (acute) exacerbation Status: Acute Assessment and Plan: See above (3) Chronic hyponatremia: Code(s): E87.1 - Hypo-osmolality and hyponatremia Status: Acute Assessment and Plan: Sodium improved IV fluids were discontinued on 07/11 Monitor sodium and intake/output TSH within normal limits (4) Alcohol withdrawal: Code(s): F10.239 - Alcohol dependence with withdrawal, unspecified Status: Acute Assessment and Plan: Patient was initially transferred to ICU due to alcohol withdrawal which was worsening his respiratory failure Currently sedated with Versed and fentanyl Continue thiamine and folic acid (5) Hypertension: Qualifiers: Hypertension type: unspecified Qualified Code(s): I10 - Essential (primary) hypertension Code(s): I10 - Essential (primary) hypertension Status: Chronic Assessment and Plan: Patient now hypertensive, continue amlodipine and metoprolol -continue p.r.n. labetalol and hydralazine (6) CAD (coronary artery disease): Qualifiers: Coronary Disease-Associated Artery/Lesion type: [place] artery [place] vs. transplanted heart: [place] heart Associated angina: without angina Qualified Code(s): I25.10 - Atherosclerotic heart disease of [place] coronary artery without angina pectoris Code(s): I25.10 - Atherosclerotic heart disease of [place] coronary artery without angina pectoris Status: Acute Assessment and Plan: EKG reviewed Continue aspirin beta-shannan and statin His troponin was negative on presentation echo Summary 1. Left ventricular chamber dimension is normal. 2. Left ventricular systolic function is normal, estimated at 60-65%. 3. There is no increased left ventricular wall thickness. 4. The left ventricular diastolic function is abnormal. 5. Right ventricular chamber dimension is severely enlarged. 6. Right ventricular systolic function is reduced. 7. Linear artifact in right ventricle suggestive of catheter(s), pacemaker lead(s), or ICD lead(s). 8. Left atrial chamber dimension is mildly enlarged. 9. Right atrial chamber dimension is mildly enlarged. 10. There is mild mitral valve regurgitation. 11. There is mild tricuspid valve regurgitation. (7) Hypotension: Code(s): I95.9 - Hypotension, unspecified Status: Acute Assessment and Plan: RESOLVED, patient currently hypertensive Patient was transiently hypotensive on admission likely secondary to sedation and mechanical ventilator He was given fluid bolus and his blood pressure improved. Continue to monitor (8) Hypothyroidism: Qualifiers: Hypothyroidism type: unspecified Qualified Code(s): E03.9 - Hypothyroidism, unspecified Code(s): E03.9 - Hypothyroidism, unspecified
[2021-07-16] MEDS: PANTOPRAZOLE SODIUM IV 40 MG VIAL IV PUSH (09:20)
[2021-07-16] MEDS: METOPROLOL TARTRATE 50 MG TAB PO (09:20)
[2021-07-16] MEDS: MINERAL OIL/WHITE PETROLATUM OINTMENT 1 APPLIC EACH EYE ×2 (09:20→20:45)
[2021-07-16] MEDS: amLODIPine BESYLATE 5 MG TABLET 10 MG PO (09:20)
[2021-07-16] MEDS: methylPREDNISolone SOD SUCC 40 MG VIAL IV PUSH ×2 (09:20→20:44)
[2021-07-16] MEDS: FOLIC ACID 1 MG TABLET FEED TUBE (09:21)
[2021-07-16] MEDS: THIAMINE HCL 100 MG TABLET FEED TUBE (09:21)
[2021-07-16] MEDS: ENOXAPARIN 40 MG/0.4 ML SYRINGE SUB-Q (09:21)
[2021-07-16] MEDS: ASPIRIN 81 MG CHEWABLE TABLET PO (09:21)
[2021-07-16 11:55] LABS: Glucose Point of Care 200 mg/dl (65-105)
--- NOTE | 2021-07-16 14:58 | PM.IMPN ---
Progress Note: A&P Assessment and Plan (1) Acute respiratory failure with hypoxia and hypercapnia: Code(s): J96.01 - Acute respiratory failure with hypoxia; J96.02 - Acute respiratory failure with hypercapnia Status: Acute Assessment and Plan: Secondary to acute exacerbation of COPD 07/06 placed on BiPAP and was on BiPAP intermittently. 07/09 BiPAP was changed to AVAPS and repeat ABG was improved. Patient intubated 07/09/2021 Continue pain management per film laboratory technician Echocardiogram reviewed Continue steroids and bronchodilators He is also on empiric antibiotics in the form of Rocephin and azithromycin (initiated on a 07/06) which will be continued. Antibiotic has been switched to vancomycin cefepime on 07/14/2021 and sputum culture sent. Sputum culture with Gram-positive cocci in clusters WBC count worsened 07/15/2021. Now stable 07/16/2021 Blood and sputum cultures have been sent and are negative for now COVID PCR was negative (2) COPD exacerbation: Code(s): J44.1 - Chronic obstructive pulmonary disease with (acute) exacerbation Status: Acute Assessment and Plan: See above (3) Chronic hyponatremia: Code(s): E87.1 - Hypo-osmolality and hyponatremia Status: Acute Assessment and Plan: Sodium improved IV fluids were discontinued on 07/11 Monitor sodium and intake/output TSH within normal limits (4) Alcohol withdrawal: Code(s): F10.239 - Alcohol dependence with withdrawal, unspecified Status: Acute Assessment and Plan: Patient was initially transferred to ICU due to alcohol withdrawal which was worsening his respiratory failure Currently sedated with Versed and fentanyl Continue thiamine and folic acid On Precedex drip currently (5) Hypertension: Qualifiers: Hypertension type: unspecified Qualified Code(s): I10 - Essential (primary) hypertension Code(s): I10 - Essential (primary) hypertension Status: Chronic Assessment and Plan: Patient now hypertensive, will increase amlodipine and metoprolol -continue p.r.n. labetalol (6) CAD (coronary artery disease): Qualifiers: Coronary Disease-Associated Artery/Lesion type: [place] artery [place] vs. transplanted heart: [place] heart Associated angina: without angina Qualified Code(s): I25.10 - Atherosclerotic heart disease of [place] coronary artery without angina pectoris Code(s): I25.10 - Atherosclerotic heart disease of [place] coronary artery without angina pectoris Status: Acute Assessment and Plan: EKG reviewed Continue aspirin beta-shannan and statin His troponin was negative on presentation echo Summary 1. Left ventricular chamber dimension is normal. 2. Left ventricular systolic function is normal, estimated at 60-65%. 3. There is no increased left ventricular wall thickness. 4. The left ventricular diastolic function is abnormal. 5. Right ventricular chamber dimension is severely enlarged. 6. Right ventricular systolic function is reduced. 7. Linear artifact in right ventricle suggestive of catheter(s), pacemaker lead(s), or ICD lead(s). 8. Left atrial chamber dimension is mildly enlarged. 9. Right atrial chamber dimension is mildly enlarged. 10. There is mild mitral valve regurgitation. 11. There is mild tricuspid valve regurgitation. (7) Hypotension: Code(s): I95.9 - Hypotension, unspecified Status: Acute Assessment and Plan: RESOLVED, patient currently hypertensive Patient was transiently hypotensive on admission likely secondary to sedation and mechanical ventilator He was given fluid bolus and his blood pressure improved. Continue to monitor (8) Hypothyroidism: Qualifiers: Hypothyroidism type: unspecified Qualified Code(s): E03.9 - Hypothyroidism, unspecified Code(s): E03.9 - Hypothyroidism, unspecified Status: Chronic Assessment and Plan: Continue levot
[2021-07-16 18:15] LABS: Glucose Point of Care 234 mg/dl (65-105)
[2021-07-16] MEDS: MELATONIN 3 MG TABLET PO (20:44)
[2021-07-16] MEDS: dexmedeTOMIDine 400 MCG/100 ML 400 MCG/100 ML BAG 14.47 MCG IV CONT (20:56)
[2021-07-16 23:46] LABS: Glucose Point of Care 199 mg/dl (65-105)
[2021-07-17] VITALS (38 sets, daily range): BP systolic 96–158; BP diastolic 59–98; PULSE 72–118; RESP 8–24; TEMP 36.2–36.9; O2SAT 91–99
[2021-07-17] MEDS: IPRATROPIUM BR 0.02% INH SOLN 0.5 MG/2.5 ML VIAL INHALATION ×4 (01:38→20:44)
[2021-07-17] MEDS: dexmedeTOMIDine 400 MCG/100 ML 400 MCG/100 ML BAG 14.47 MCG IV CONT ×2 (03:43→09:09)
[2021-07-17 04:58] LABS: Basophils Percent Auto 0.1 % (0.2-1.2); Hematocrit 35.8 % (42.0-52.0); Hemoglobin 11.9 g/dL (14.0-18.0); Immature Granulocyte Absolute 0.06 K/mm3 (0.00-0.031); Immature Granulocyte Percent A 0.5 % (0-0.5); Lymphocytes Absolute Auto 0.21 K/mm3 (0.9-3.2); Lymphocytes Percent Auto 1.9 % (18.3-44.2); Mean Corpuscular HGB Conc 33.2 g/dl (32-36); Mean Corpuscular Hemoglobin 32.1 pg (26-34); Mean Corpuscular Volume 96.5 fl (80-100); Mean Platelet Volume 9.7 fl (7.4-10.4); Monocytes Absolute Auto 0.4 K/mm3 (0.1-0.6); Monocytes Percent Auto 3.3 % (2.6-8.5); Neutrophils Absolute Auto 10.5 K/mm3 (1.3-6.7); Neutrophils Percent Auto 94.2 % (45.5-73.1); Platelet Count Result 192 k/mm3 (150-375); Red Blood Count 3.71 M/mm3 (4.6-6.20); Red Cell Distribution Width 13.3 % (11.5-14.5); White Blood Count 11.2 K/mm3 (4.5-10.0)
[2021-07-17] MEDS: CENTRAL LINE FLUSH 10 ML IV PUSH ×3 (05:02→21:34)
[2021-07-17 05:08] LABS: Alveolar/Arterial O2 Gradient 88.9 mmHg; Base Excess ABG 6.8 mEq/l (+/-2.0); Carboxyhemoglobin 0.3 % THb (0-2.0); Fractional Inspired Oxygen 30 %; HCO3 ABG 31.2 mEq/l (22.0-26.0); Methemoglobin ABG 0.3 %THb (0-1.5); Oxygen Content ABG 16.7 %vol (16.0-22.0); Oxygen Saturation ABG 95.6 % (95.0-100.0); PCO2 ABG 43.5 mmHg (35.0-45.0); PO2 ABG 73.9 mmHg (80.0-100.0); PO2 FiO2 Ratio Arterial Blood 2.46 %; Reduced Hemoglobin 5.4 %THb (0-5.0); Total Hemoglobin 12.6 g/dL (12.0-18.0); pH ABG 7.473 (7.350-7.450)
[2021-07-17 05:12] LABS: Device VENTILATOR; Modified Allen's Test Unable to perform; Site Drawn LEFT RADIAL
[2021-07-17 05:13] LABS: Arterial Blood Gas PEEP 5 cmH2O; Arterial Blood Gas Vent Mode ASV
[2021-07-17 05:16] LABS: Alanine Aminotransferase 39 U/L (4-50); Albumin Level 2.7 g/dL (3.5-5.1); Alkaline Phosphatase 40 U/L (38-126); Anion Gap 1 mmol/L (8-16); Aspartate Amino Transferase 24 U/L (17-59); Bilirubin,Total 0.5 mg/dL (0.2-1.3); Blood Urea Nitrogen 65 mg/dL (9-20); Carbon Dioxide 33 mmol/L (22-30); Chloride 94 mmol/L (98-107); Estimated CRCL calculation 81 ml/min; Estimated Glomerular Filt Rate > 60; Glucose 263 mg/dL (65-110); Magnesium 2.8 mg/dL (1.6-2.3); Phosphorus 3.6 mg/dL (2.5-4.5); Potassium 4.8 mmol/L (3.4-5.0); Sodium 128 mmol/L (137-145)
[2021-07-17] MEDS: INSULIN ASPART (*BKC) 100 UNITS/ML SUB-Q (05:22)
--- NOTE | 2021-07-17 06:36 | PC.NURSE ---
0630 Dr. Ambrose updated on status. Patient c/o shortness of breath. Tachycardic at 120, RR 30. Resp. at bedside. Peter. breath sounds noted. Appears anxious. Orders received.
[2021-07-17] MEDS: BUDESONIDE RESPULE NEB 0.5 MG/2 ML AMP INHALATION ×2 (08:19→20:44)
[2021-07-17] MEDS: DORNASE ALFA INH SOLN 1 MG/ML 2.5 ML AMP 2.5 MG INHALATION ×2 (08:20→20:44)
[2021-07-17] MEDS: ENOXAPARIN 40 MG/0.4 ML SYRINGE SUB-Q (08:55)
[2021-07-17] MEDS: amLODIPine BESYLATE 5 MG TABLET 10 MG PO (08:56)
[2021-07-17] MEDS: PANTOPRAZOLE SODIUM IV 40 MG VIAL IV PUSH (08:56)
[2021-07-17] MEDS: LEVOTHYROXINE SODIUM 50 MCG TABLET FEED TUBE (08:56)
[2021-07-17] MEDS: LEVOTHYROXINE SODIUM 12.5 MCG TABLET FEED TUBE (08:56)
[2021-07-17] MEDS: ASPIRIN 81 MG CHEWABLE TABLET PO (08:56)
[2021-07-17] MEDS: THIAMINE HCL 100 MG TABLET FEED TUBE (08:57)
[2021-07-17] MEDS: MINERAL OIL/WHITE PETROLATUM OINTMENT 1 APPLIC EACH EYE (08:57)
[2021-07-17] MEDS: METOPROLOL TARTRATE 50 MG TAB PO ×2 (08:57→21:33)
--- NOTE | 2021-07-17 10:25 | WPDINTPN ---
Progress Note: A&P Assessment and Plan (1) Acute respiratory failure with hypoxia and hypercapnia: Code(s): J96.01 - Acute respiratory failure with hypoxia; J96.02 - Acute respiratory failure with hypercapnia Status: Acute Assessment and Plan: Secondary to acute exacerbation of COPD 07/06 placed on BiPAP and was on BiPAP intermittently. 07/09 BiPAP was changed to AVAPS and repeat ABG was improved. 07/09 intubated in the afternoon ABG and chest x-ray reviewed Continues CMV mode of ventilation, peep of 5 in 35% FiO2. Patient tolerated pressure support ventilation 8/5 yesterday and ASV mode all night, early this morning was placed back on CMV mode as he was getting anxious. -Place him back again on pressure support ventilation 8/5, and evaluate for extubation. Prior to that will discuss with his , regarding re-intubation if patient fails extubation Echocardiogram reviewed Wean steroids Continue bronchodilators Patient has thick yellow to sandoval colored secretions from the ET tube. Antibiotics switched to vancomycin and cefepime (07/14), patient also on Pulmozyme -07/14: repeat sputum culture pending -07/06: Blood and sputum cultures are negative COVID PCR was negative Continue Precedex infusion Upper and lower extremity swelling, responded well to diuresis will diurese again today (2) COPD exacerbation: Code(s): J44.1 - Chronic obstructive pulmonary disease with (acute) exacerbation Status: Acute Assessment and Plan: See above (3) Chronic hyponatremia: Code(s): E87.1 - Hypo-osmolality and hyponatremia Status: Acute Assessment and Plan: Sodium stable IV fluids were discontinued on 07/11 Monitor sodium and intake/output TSH within normal limits (4) Alcohol withdrawal: Code(s): F10.239 - Alcohol dependence with withdrawal, unspecified Status: Acute Assessment and Plan: Patient was initially transferred to ICU due to alcohol withdrawal which was worsening his respiratory failure Currently sedated with Versed and fentanyl Continue thiamine and folic acid (5) Hypertension: Qualifiers: Hypertension type: unspecified Qualified Code(s): I10 - Essential (primary) hypertension Code(s): I10 - Essential (primary) hypertension Status: Chronic Assessment and Plan: Patient now hypertensive, continue amlodipine and metoprolol -continue p.r.n. labetalol and hydralazine (6) CAD (coronary artery disease): Qualifiers: Coronary Disease-Associated Artery/Lesion type: [place] artery [place] vs. transplanted heart: [place] heart Associated angina: without angina Qualified Code(s): I25.10 - Atherosclerotic heart disease of [place] coronary artery without angina pectoris Code(s): I25.10 - Atherosclerotic heart disease of [place] coronary artery without angina pectoris Status: Acute Assessment and Plan: EKG reviewed Continue aspirin beta-shannan and statin His troponin was negative on presentation echo Summary 1. Left ventricular chamber dimension is normal. 2. Left ventricular systolic function is normal, estimated at 60-65%. 3. There is no increased left ventricular wall thickness. 4. The left ventricular diastolic function is abnormal. 5. Right ventricular chamber dimension is severely enlarged. 6. Right ventricular systolic function is reduced. 7. Linear artifact in right ventricle suggestive of catheter(s), pacemaker lead(s), or ICD lead(s). 8. Left atrial chamber dimension is mildly enlarged. 9. Right atrial chamber dimension is mildly enlarged. 10. There is mild mitral valve regurgitation. 11. There is mild tricuspid valve regurgitation. (7) Hypotension: Code(s): I95.9 - Hypotension, unspecified Status: Acute Assessment and Plan: RESOLVED, patient currently hypertensive Patient was transiently hypotensive on admission likely secondary to sedation and mechanical vent
[2021-07-17] MEDS: FUROSEMIDE INJ 40 MG/4 ML VIAL 20 MG IV PUSH (11:22)
--- NOTE | 2021-07-17 11:38 | PCFNICU ---
ICU Rounding Note: Pt current nutrition is Vital AF 1.2 at 65ml/hr over 22 hours. Last recorded weight is 79.8 kg, up from 70.8 kg on admit Bowel Motility:+BM reported 07/14 Labs Reviewed:Mg 2.8, Na 128, Hct 35.8,Hgb 35.8, BUN 65, Cr 0.6 Meds Noted:Synthroid, Solu-Medrol,Folic Acid,Thiamine,Rocephin, Atrovent, Lovenox,Xopenex, Zithromax, Reglan, Precedex,Lopressor,Vancomycin. Skin: WNL Additional Notes: Patient remains on mechanical vent and tube feedings of Vital AF 1.2 at 65 ml/hr over 22 hours. Patient is tolerating tube feedings per nursing. Free water flush 30 ml q 4 hours. Agree with diet orders. Following daily in ICU rounds. Will reassess every Saturday and Saturday.
[2021-07-17 12:20] LABS: Glucose Point of Care 178 mg/dl (65-105)
[2021-07-17 12:33] LABS: Alveolar/Arterial O2 Gradient 94.6 mmHg; Base Excess ABG 4.3 mEq/l (+/-2.0); Device VENTILATOR; Fractional Inspired Oxygen 40 %; HCO3 ABG 28.3 mEq/l (22.0-26.0); Modified Allen's Test Pass; Oxygen Content ABG 18.7 %vol (16.0-22.0); Oxyhemoglobin 97.5 % THb (90.0-100.0); PCO2 ABG 40.3 mmHg (35.0-45.0); PO2 ABG 144.3 mmHg (80.0-100.0); PO2 FiO2 Ratio Arterial Blood 3.61 %; Site Drawn LEFT RADIAL; Total Hemoglobin 13.5 g/dL (12.0-18.0); pH ABG 7.465 (7.350-7.450)
[2021-07-17 12:34] LABS: Arterial Blood Gas PEEP 5 cmH2O; Arterial Blood Gas Pressure Support 8 cmH2O; Arterial Blood Gas Vent Mode SPONTANEOUS
--- NOTE | 2021-07-17 13:07 | PM.EVENT ---
Event Note Event Note Event Note: Patient was placed on SBT with PSV of 8/5, 35 FiO2. Patient's ABGs look good, patient was awake, alert was following commands, had a good cough, adequate mentation. Patient was successfully extubated to BiPAP 05/10. Is doing well. Will given a break from the BiPAP in a couple of hours. Will place him on BiPAP intermittently and while he is asleep
--- NOTE | 2021-07-17 14:23 | PM.IMPN ---
Progress Note: A&P Assessment and Plan (1) Acute respiratory failure with hypoxia and hypercapnia: Code(s): J96.01 - Acute respiratory failure with hypoxia; J96.02 - Acute respiratory failure with hypercapnia Status: Acute Assessment and Plan: Secondary to acute exacerbation of COPD 07/06 placed on BiPAP and was on BiPAP intermittently. 07/09 BiPAP was changed to AVAPS and repeat ABG was improved. Patient intubated 07/09/2021 Continue pain management per pharmacy sales representative Echocardiogram reviewed Continue steroids and bronchodilators He is also on empiric antibiotics in the form of Rocephin and azithromycin (initiated on a 07/06) which will be continued. Antibiotic has been switched to vancomycin cefepime on 07/14/2021 and sputum culture sent. Sputum culture with Gram-positive cocci in clusters WBC count worsened 07/15/2021. Now stable 07/16/2021 Blood and sputum cultures have been sent and are negative for now COVID PCR was negative On spontaneous breathing trial per pharmacy sales representative (2) COPD exacerbation: Code(s): J44.1 - Chronic obstructive pulmonary disease with (acute) exacerbation Status: Acute Assessment and Plan: See above (3) Chronic hyponatremia: Code(s): E87.1 - Hypo-osmolality and hyponatremia Status: Acute Assessment and Plan: Sodium improved IV fluids were discontinued on 07/11 Monitor sodium and intake/output TSH within normal limits (4) Alcohol withdrawal: Code(s): F10.239 - Alcohol dependence with withdrawal, unspecified Status: Acute Assessment and Plan: Patient was initially transferred to ICU due to alcohol withdrawal which was worsening his respiratory failure Currently sedated with Versed and fentanyl Continue thiamine and folic acid On Precedex drip currently (5) Hypertension: Qualifiers: Hypertension type: unspecified Qualified Code(s): I10 - Essential (primary) hypertension Code(s): I10 - Essential (primary) hypertension Status: Chronic Assessment and Plan: Patient on amlodipine and metoprolol -continue p.r.n. labetalol (6) CAD (coronary artery disease): Qualifiers: Coronary Disease-Associated Artery/Lesion type: [place] artery [place] vs. transplanted heart: [place] heart Associated angina: without angina Qualified Code(s): I25.10 - Atherosclerotic heart disease of [place] coronary artery without angina pectoris Code(s): I25.10 - Atherosclerotic heart disease of [place] coronary artery without angina pectoris Status: Acute Assessment and Plan: EKG reviewed Continue aspirin beta-shannan and statin His troponin was negative on presentation echo Summary 1. Left ventricular chamber dimension is normal. 2. Left ventricular systolic function is normal, estimated at 60-65%. 3. There is no increased left ventricular wall thickness. 4. The left ventricular diastolic function is abnormal. 5. Right ventricular chamber dimension is severely enlarged. 6. Right ventricular systolic function is reduced. 7. Linear artifact in right ventricle suggestive of catheter(s), pacemaker lead(s), or ICD lead(s). 8. Left atrial chamber dimension is mildly enlarged. 9. Right atrial chamber dimension is mildly enlarged. 10. There is mild mitral valve regurgitation. 11. There is mild tricuspid valve regurgitation. (7) Hypotension: Code(s): I95.9 - Hypotension, unspecified Status: Acute Assessment and Plan: RESOLVED, patient currently hypertensive Patient was transiently hypotensive on admission likely secondary to sedation and mechanical ventilator He was given fluid bolus and his blood pressure improved. Continue to monitor (8) Hypothyroidism: Qualifiers: Hypothyroidism type: unspecified Qualified Code(s): E03.9 - Hypothyroidism, unspecified Code(s): E03.9 - Hypothyroidism, unspecified Status: Chronic Assessment and Dennis
[2021-07-17 17:52] LABS: Glucose Point of Care 163 mg/dl (65-105)
[2021-07-17] MEDS: dexmedeTOMIDine 400 MCG/100 ML 400 MCG/100 ML BAG IV CONT (19:45)
[2021-07-17] MEDS: MELATONIN 3 MG TABLET PO (21:33)
[2021-07-18] VITALS (31 sets, daily range): BP systolic 87–144; BP diastolic 49–88; PULSE 74–99; RESP 14–25; TEMP 36.4–36.8; O2SAT 94–100; BMI 10.0
[2021-07-18 00:10] LABS: Glucose Point of Care 144 mg/dl (65-105)
[2021-07-18] MEDS: IPRATROPIUM BR 0.02% INH SOLN 0.5 MG/2.5 ML VIAL INHALATION ×5 (02:12→19:45)
[2021-07-18] MEDS: dexmedeTOMIDine 400 MCG/100 ML 400 MCG/100 ML BAG 8.27 MCG IV CONT ×2 (05:08→18:36)
[2021-07-18 05:10] LABS: Basophils Percent Auto 0.1 % (0.2-1.2); Hematocrit 37.3 % (42.0-52.0); Immature Granulocyte Absolute 0.04 K/mm3 (0.00-0.031); Immature Granulocyte Percent A 0.3 % (0-0.5); Lymphocytes Absolute Auto 0.45 K/mm3 (0.9-3.2); Lymphocytes Percent Auto 3.6 % (18.3-44.2); Mean Corpuscular HGB Conc 32.2 g/dl (32-36); Mean Corpuscular Hemoglobin 31.8 pg (26-34); Mean Corpuscular Volume 98.9 fl (80-100); Mean Platelet Volume 9.8 fl (7.4-10.4); Monocytes Absolute Auto 0.7 K/mm3 (0.1-0.6); Monocytes Percent Auto 5.3 % (2.6-8.5); Neutrophils Absolute Auto 11.5 K/mm3 (1.3-6.7); Neutrophils Percent Auto 90.7 % (45.5-73.1); Platelet Count Result 202 k/mm3 (150-375); Red Blood Count 3.77 M/mm3 (4.6-6.20); Red Cell Distribution Width 13.4 % (11.5-14.5); White Blood Count 12.6 K/mm3 (4.5-10.0)
[2021-07-18] MEDS: CENTRAL LINE FLUSH 10 ML IV PUSH ×3 (05:10→21:12)
[2021-07-18 05:39] LABS: Alanine Aminotransferase 43 U/L (4-50); Albumin Level 2.7 g/dL (3.5-5.1); Alkaline Phosphatase 35 U/L (38-126); Anion Gap 0 mmol/L (8-16); Aspartate Amino Transferase 32 U/L (17-59); Bilirubin,Total 0.8 mg/dL (0.2-1.3); Blood Urea Nitrogen 63 mg/dL (9-20); Calcium 7.8 mg/dL (8.4-10.2); Carbon Dioxide 37 mmol/L (22-30); Chloride 93 mmol/L (98-107); Estimated CRCL calculation 95 ml/min; Estimated Glomerular Filt Rate > 60; Glucose 114 mg/dL (65-110); Magnesium 2.5 mg/dL (1.6-2.3); Phosphorus 3.8 mg/dL (2.5-4.5); Potassium 4.9 mmol/L (3.4-5.0); Sodium 130 mmol/L (137-145)
[2021-07-18 05:54] LABS: Alveolar/Arterial O2 Gradient 81.3 mmHg; Base Excess ABG 7.6 mEq/l (+/-2.0); Carboxyhemoglobin 0.3 % THb (0-2.0); Fractional Inspired Oxygen 30 %; HCO3 ABG 32.5 mEq/l (22.0-26.0); Methemoglobin ABG 0.2 %THb (0-1.5); Oxygen Content ABG 18.4 %vol (16.0-22.0); Oxygen Saturation ABG 96.1 % (95.0-100.0); Oxyhemoglobin 94.6 % THb (90.0-100.0); PCO2 ABG 46.4 mmHg (35.0-45.0); PO2 ABG 78.1 mmHg (80.0-100.0); Reduced Hemoglobin 4.9 %THb (0-5.0); Total Hemoglobin 13.8 g/dL (12.0-18.0); pH ABG 7.463 (7.350-7.450)
[2021-07-18 05:55] LABS: Device NON-INVASIVE VENT; Modified Allen's Test Unable to perform; Site Drawn RIGHT RADIAL
[2021-07-18 05:56] LABS: Non-Invasive Expiratory Pressure 7 CMH2O; Non-Invasive Inspiratory Pressure 14 CMH2O; Non-Invasive Vent Rate 4 /MIN
[2021-07-18] MEDS: LEVOTHYROXINE SODIUM 50 MCG TABLET FEED TUBE (06:12)
[2021-07-18] MEDS: LEVOTHYROXINE SODIUM 12.5 MCG TABLET FEED TUBE (06:12)
[2021-07-18] MEDS: FUROSEMIDE INJ 40 MG/4 ML VIAL IV PUSH (07:40)
[2021-07-18] MEDS: ENOXAPARIN 40 MG/0.4 ML SYRINGE SUB-Q (08:51)
[2021-07-18] MEDS: PANTOPRAZOLE SODIUM IV 40 MG VIAL IV PUSH (08:51)
--- NOTE | 2021-07-18 09:05 | PCSTNOTE ---
Please refer to the Bedside Swallow Evaluation in the EMR. Please note, silent aspiration cannot be ruled out at bedside.
[2021-07-18] MEDS: BUDESONIDE RESPULE NEB 0.5 MG/2 ML AMP INHALATION ×2 (09:11→19:46)
--- NOTE | 2021-07-18 10:01 | PM.PNPUL ---
Progress Note: A&P Assessment and Plan (1) COPD exacerbation: Code(s): J44.1 - Chronic obstructive pulmonary disease with (acute) exacerbation Status: Acute Assessment and Plan: patient with a history of tobacco use and was seen in the Pulmonary Clinic on 07/12/2020 with a clinical diagnosis of COPD. PFTs and a 6 minutes walk were recommended but the patient declined. Pulmonary rehabilitation as well as COVID, pneumococcal booster in influenza vaccine recommended but declined. The patient has severe apical predominant panlobular emphysema on his high-resolution CT scan on 07/15/2021. The patient has acute on chronic hypercarbic and hypoxemic respiratory failure with a blood gas of 7.31/ 54/ 175 on admission on 07/06/2021. echocardiogram on 07/08/2021 demonstrates a severely enlarged right ventricle with decreased systolic function, mildly enlarged right atrium, PASP of 31 and LV systolic function of 60-65% with abnormal diastolic function. patient is currently being treated for COPD exacerbation and pneumonia. He was treated with azithromycin from 07/06-07/14, ceftriaxone from 07/06-07/14, vancomycin from 07/14 and cefepime from 07/14. Will continue X 7 days then DC. White blood cell count is 12.6 today he is afebrile. Chest x-ray shows no focal infiltrates. Sputum normal robin on 07/06/21 and 07/14/2021, COVID RT PCR negative on 07/06/2021. his steroids were scheduled to be discontinued today but he had wheezing once they took him off the BiPAP and he was given Solu-Medrol 125 x 1 today. He remains on levalbuterol 1.25 q.6 hours scheduled and ipratropium 0.5 mg q.6 hours. I will increase these to Q 4 hours standing. he is on budesonide 0.5 mg q.12 hours. I will discontinue his trelegy as he is on maximal doses of beta agonist, muscarinic antagonist and inhaled corticosteroids with a nebulized treatments. (2) Acute respiratory failure with hypoxia and hypercapnia: Code(s): J96.01 - Acute respiratory failure with hypoxia; J96.02 - Acute respiratory failure with hypercapnia Status: Acute Assessment and Plan: The patient has acute on chronic hypercarbic and hypoxemic respiratory failure with a blood gas of 7.31/ 54/ 175 on admission on 07/06/2021. The patient has chronic hypercarbic respiratory failure from his COPD and would benefit from BiPAP or noninvasive ventilation. The patient told me the BiPAP pressures were uncomfortable for him this morning. I switched him to in an AVAPS mode And adjusted settings to comfort with a rate of 14, tidal volume 500, EPAP 5, minimal inspiratory pressure 6, maximal inspiratory pressure 25, inspiratory time 1.1, rise of 1 and 30% FiO2. Continue BiPAP for increased work of breathing and COPD exacerbation at this time. 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 Will follow with you Subjective Date/time seen: 07/18/21 10:01 Interval history: 07/07/21 new consult for COPD exacerbation Layton Ayala is a 76 year old man with COPD admitted through the ED yesterday with severe shortness of breath. His Harika is at the bedside and provides history because the patient his having alcohol withdrawal and is agitated. He has COPD, uses Breztri prescribed by his primary care doctor, and has a nebulizer with albuterol that he used last 2 days ago, one time. He had COVID in March without difficulties, was not very sick. The patient started feeling worse about 2-3 days ago, had increased shortness of breath and coughing with small amounts of white sputum production. He woke at 2 am yesterday am, got dressed and waited for his to wake up a few hours later. He was extremely short of breath, wanted to call 911. When they picked him up, his saturation was 90% on room air.
--- NOTE | 2021-07-18 12:20 | PCNFU ---
Nutrition Follow-Up Complete: Less than optimal enteral nutrition composition as related to intake from enteral nutrients as evidenced by current tube feeding rate. Goal: Meet estimated nutritional needs Patient is progressing towards goal. We will continue current goal. Pt current nutrition is NPO. Last recorded weight is 75.9 kg, up from 70.8 kg on admit. Bowel Motility: Last reported BM 07/14 Labs Reviewed:Mg 2.5,BUN 63, Cr 0.5,Glu 114, Hct 37.3,Hgb 12.0,Na 130, Alb 2.7 Meds Noted:Vancomycin, Precedex, Protonix, Xopenex, Synthroid, Atrovent, Lovenox Skin: WNL Additional Notes: Patient extubated 07/17. Bedside swallow study today. Plans for MBS tomorrow 07/19. Patient will remain NPO until after speech eval. Will monitor in ICU rounds and reassess every Saturday and Saturday.
[2021-07-18 12:32] LABS: Glucose Point of Care 135 mg/dl (65-105)
--- NOTE | 2021-07-18 12:55 | WPDINTPN ---
Progress Note: A&P Assessment and Plan (1) Acute respiratory failure with hypoxia and hypercapnia: Code(s): J96.01 - Acute respiratory failure with hypoxia; J96.02 - Acute respiratory failure with hypercapnia Status: Acute Assessment and Plan: Secondary to acute exacerbation of COPD 07/06 placed on BiPAP and was on BiPAP intermittently. 07/09 BiPAP was changed to AVAPS and repeat ABG was improved. 07/09 intubated in the afternoon -425: Extubated successfully to BiPAP ABG and chest x-ray reviewed Patient has been requiring BiPAP and no tolerating nasal cannula, -appreciate pulmonology evaluation recommendation, patient currently on AVAPS. -will alternate with high-flow therapy with Airvo Continue Precedex infusion -so steroids were being weaned with patient has had significant expiratory wheezes despite being on bronchodilators, given 1 dose of Solu-Medrol 125 mg IV x1 and will continue 40 mg IV q.12 hours Continue bronchodilators Patient has thick yellow to sandoval colored secretions from the ET tube. Antibiotics switched to vancomycin and cefepime (07/14), patient also on Pulmozyme -07/14: repeat sputum culture pending -07/06: Blood and sputum cultures are negative COVID PCR was negative Continue Precedex infusion Upper and lower extremity swelling, responded well to diuresis, will diurese again today (2) COPD exacerbation: Code(s): J44.1 - Chronic obstructive pulmonary disease with (acute) exacerbation Status: Acute Assessment and Plan: See above (3) Chronic hyponatremia: Code(s): E87.1 - Hypo-osmolality and hyponatremia Status: Acute Assessment and Plan: Sodium stable IV fluids were discontinued on 07/11 Monitor sodium and intake/output TSH within normal limits (4) Alcohol withdrawal: Code(s): F10.239 - Alcohol dependence with withdrawal, unspecified Status: Acute Assessment and Plan: Patient was initially transferred to ICU due to alcohol withdrawal which was worsening his respiratory failure Currently sedated with Versed and fentanyl Continue thiamine and folic acid (5) Hypertension: Qualifiers: Hypertension type: unspecified Qualified Code(s): I10 - Essential (primary) hypertension Code(s): I10 - Essential (primary) hypertension Status: Chronic Assessment and Plan: Patient now hypertensive, continue amlodipine and metoprolol -continue p.r.n. labetalol and hydralazine (6) CAD (coronary artery disease): Qualifiers: Associated angina: without angina Coronary Disease-Associated Artery/Lesion type: [place] artery [place] vs. transplanted heart: [place] heart Qualified Code(s): I25.10 - Atherosclerotic heart disease of [place] coronary artery without angina pectoris Code(s): I25.10 - Atherosclerotic heart disease of [place] coronary artery without angina pectoris Status: Acute Assessment and Plan: EKG reviewed Continue aspirin beta-shannan and statin His troponin was negative on presentation echo Summary 1. Left ventricular chamber dimension is normal. 2. Left ventricular systolic function is normal, estimated at 60-65%. 3. There is no increased left ventricular wall thickness. 4. The left ventricular diastolic function is abnormal. 5. Right ventricular chamber dimension is severely enlarged. 6. Right ventricular systolic function is reduced. 7. Linear artifact in right ventricle suggestive of catheter(s), pacemaker lead(s), or ICD lead(s). 8. Left atrial chamber dimension is mildly enlarged. 9. Right atrial chamber dimension is mildly enlarged. 10. There is mild mitral valve regurgitation. 11. There is mild tricuspid valve regurgitation. (7) Hypotension: Code(s): I95.9 - Hypotension, unspecified Status: Acute Assessment and Plan: RESOLVED, patient currently hypertensive Patient was transiently hypotensive on admission likely secondary to sedation
[2021-07-18] MEDS: methylPREDNISolone SOD SUCC 125 MG VIAL IV PUSH (13:34)
--- NOTE | 2021-07-18 16:06 | PM.IMPN ---
Progress Note: A&P Assessment and Plan (1) Acute respiratory failure with hypoxia and hypercapnia: Code(s): J96.01 - Acute respiratory failure with hypoxia; J96.02 - Acute respiratory failure with hypercapnia Status: Acute Assessment and Plan: Secondary to acute exacerbation of COPD 07/06 placed on BiPAP and was on BiPAP intermittently. 07/09 BiPAP was changed to AVAPS and repeat ABG was improved. Patient intubated 07/09/2021 Echocardiogram reviewed Continue steroids and bronchodilators He is also on empiric antibiotics in the form of Rocephin and azithromycin (initiated on a 07/06). Antibiotic has been switched to vancomycin cefepime on 07/14/2021 and sputum culture sent. Sputum culture with Gram-positive cocci in clusters. WBC count worsened 07/15/2021. Now stable 07/16/2021 Blood and sputum cultures have been sent and are negative for now COVID PCR was negative Extubated 07/17/2021 Remains on BiPAP postextubation. Pulmonary following. ABG 07/18/21: 7.46/46/78/32 (2) COPD exacerbation: Code(s): J44.1 - Chronic obstructive pulmonary disease with (acute) exacerbation Status: Acute Assessment and Plan: See above Restarted on Solu Medrol has he had significant expiratory wheezing 07/18/2021 Pulmonary on board Also on Pulmozyme (3) Chronic hyponatremia: Code(s): E87.1 - Hypo-osmolality and hyponatremia Status: Acute Assessment and Plan: Sodium improved IV fluids were discontinued on 07/11 Monitor sodium and intake/output TSH within normal limits (4) Alcohol withdrawal: Code(s): F10.239 - Alcohol dependence with withdrawal, unspecified Status: Acute Assessment and Plan: Patient was initially transferred to ICU due to alcohol withdrawal which was worsening his respiratory failure Continue thiamine and folic acid Currently on Precedex drip (5) Hypertension: Qualifiers: Hypertension type: unspecified Qualified Code(s): I10 - Essential (primary) hypertension Code(s): I10 - Essential (primary) hypertension Status: Chronic Assessment and Plan: Patient on amlodipine and metoprolol -continue p.r.n. labetalol (6) CAD (coronary artery disease): Qualifiers: Coronary Disease-Associated Artery/Lesion type: [place] artery [place] vs. transplanted heart: [place] heart Associated angina: without angina Qualified Code(s): I25.10 - Atherosclerotic heart disease of [place] coronary artery without angina pectoris Code(s): I25.10 - Atherosclerotic heart disease of [place] coronary artery without angina pectoris Status: Acute Assessment and Plan: EKG reviewed Continue aspirin beta-shannan and statin His troponin was negative on presentation echo Summary 1. Left ventricular chamber dimension is normal. 2. Left ventricular systolic function is normal, estimated at 60-65%. 3. There is no increased left ventricular wall thickness. 4. The left ventricular diastolic function is abnormal. 5. Right ventricular chamber dimension is severely enlarged. 6. Right ventricular systolic function is reduced. 7. Linear artifact in right ventricle suggestive of catheter(s), pacemaker lead(s), or ICD lead(s). 8. Left atrial chamber dimension is mildly enlarged. 9. Right atrial chamber dimension is mildly enlarged. 10. There is mild mitral valve regurgitation. 11. There is mild tricuspid valve regurgitation. (7) Hypotension: Code(s): I95.9 - Hypotension, unspecified Status: Acute Assessment and Plan: Patient was transiently hypotensive on admission likely secondary to sedation and mechanical ventilator He was given fluid bolus and his blood pressure improved. Continue to monitor (8) Hypothyroidism: Qualifiers: Hypothyroidism type: unspecified Qualified Code(s): E03.9 - Hypothyroidism, unspecified Code(s): E03.9 - Hypothyroidism, unspecified Status: Chronic
[2021-07-18 17:47] LABS: Glucose Point of Care 177 mg/dl (65-105)
[2021-07-18] MEDS: methylPREDNISolone SOD SUCC 40 MG VIAL IV PUSH (21:11)
[2021-07-18 23:53] LABS: Glucose Point of Care 159 mg/dl (65-105)
[2021-07-19] VITALS (36 sets, daily range): BP systolic 100–176; BP diastolic 53–91; PULSE 76–99; RESP 14–25; TEMP 36.4–37.2; O2SAT 90–100; BMI 26.5
[2021-07-19] MEDS: IPRATROPIUM BR 0.02% INH SOLN 0.5 MG/2.5 ML VIAL INHALATION ×7 (01:04→23:58)
[2021-07-19 02:48] LABS: Hematocrit 35.2 % (42.0-52.0); Hemoglobin 11.4 g/dL (14.0-18.0); Immature Granulocyte Absolute 0.04 K/mm3 (0.00-0.031); Immature Granulocyte Percent A 0.4 % (0-0.5); Lymphocytes Absolute Auto 0.23 K/mm3 (0.9-3.2); Lymphocytes Percent Auto 2.1 % (18.3-44.2); Mean Corpuscular HGB Conc 32.4 g/dl (32-36); Mean Corpuscular Hemoglobin 32.1 pg (26-34); Mean Corpuscular Volume 99.2 fl (80-100); Monocytes Absolute Auto 0.4 K/mm3 (0.1-0.6); Monocytes Percent Auto 3.7 % (2.6-8.5); Neutrophils Absolute Auto 10.5 K/mm3 (1.3-6.7); Neutrophils Percent Auto 93.8 % (45.5-73.1); Platelet Count Result 197 k/mm3 (150-375); Red Blood Count 3.55 M/mm3 (4.6-6.20); Red Cell Distribution Width 13.2 % (11.5-14.5); White Blood Count 11.2 K/mm3 (4.5-10.0)
[2021-07-19 03:05] LABS: Alanine Aminotransferase 48 U/L (4-50); Albumin Level 2.7 g/dL (3.5-5.1); Alkaline Phosphatase 35 U/L (38-126); Anion Gap -3 mmol/L (8-16); Aspartate Amino Transferase 32 U/L (17-59); Bilirubin,Total 0.9 mg/dL (0.2-1.3); Blood Urea Nitrogen 56 mg/dL (9-20); Calcium 7.3 mg/dL (8.4-10.2); Carbon Dioxide 38 mmol/L (22-30); Chloride 92 mmol/L (98-107); Estimated CRCL calculation 95 ml/min; Estimated Glomerular Filt Rate > 60; Glucose 141 mg/dL (65-110); Magnesium 2.6 mg/dL (1.6-2.3); Phosphorus 3.6 mg/dL (2.5-4.5); Potassium 4.8 mmol/L (3.4-5.0); Sodium 127 mmol/L (137-145)
[2021-07-19 03:08] LABS: Vancomycin Trough 18.4 ug/mL (10.0-20.0)
[2021-07-19 05:26] LABS: Alveolar/Arterial O2 Gradient 79.4 mmHg; Base Excess ABG 9.7 mEq/l (+/-2.0); Carboxyhemoglobin 0.3 % THb (0-2.0); Fractional Inspired Oxygen 30 %; Methemoglobin ABG 0.2 %THb (0-1.5); Oxygen Content ABG 16.3 %vol (16.0-22.0); Oxygen Saturation ABG 96.8 % (95.0-100.0); Oxyhemoglobin 95.2 % THb (90.0-100.0); PCO2 ABG 44.5 mmHg (35.0-45.0); PO2 ABG 82.2 mmHg (80.0-100.0); PO2 FiO2 Ratio Arterial Blood 2.74 %; Reduced Hemoglobin 4.3 %THb (0-5.0); Total Hemoglobin 12.1 g/dL (12.0-18.0)
[2021-07-19] MEDS: CENTRAL LINE FLUSH 10 ML IV PUSH ×3 (05:26→22:52)
[2021-07-19 05:27] LABS: Device NON-INVASIVE VENT; Modified Allen's Test Pass; Site Drawn LEFT RADIAL; pH ABG 7.501 (7.350-7.450)
[2021-07-19] MEDS: dexmedeTOMIDine 400 MCG/100 ML 400 MCG/100 ML BAG 8.27 MCG IV CONT (05:27)
[2021-07-19 05:28] LABS: Non-Invasive Vent Rate 14 /MIN
[2021-07-19 05:30] LABS: Non-Invasive Expiratory Pressure 5 CMH2O
[2021-07-19] MEDS: BUDESONIDE RESPULE NEB 0.5 MG/2 ML AMP INHALATION ×2 (08:11→19:49)
--- NOTE | 2021-07-19 08:56 | PM.PNPUL ---
Progress Note: A&P Assessment and Plan (1) COPD exacerbation: Code(s): J44.1 - Chronic obstructive pulmonary disease with (acute) exacerbation Status: Acute Assessment and Plan: patient with a history of tobacco use and was seen in the Pulmonary Clinic on 07/12/2020 with a clinical diagnosis of COPD. PFTs and a 6 minutes walk were recommended but the patient declined. Pulmonary rehabilitation as well as COVID, pneumococcal booster in influenza vaccine recommended but declined. The patient has severe apical predominant panlobular emphysema on his high-resolution CT scan on 07/15/2021. The patient has acute on chronic hypercarbic and hypoxemic respiratory failure with a blood gas of 7.31/ 54/ 175 on admission on 07/06/2021. echocardiogram on 07/08/2021 demonstrates a severely enlarged right ventricle with decreased systolic function, mildly enlarged right atrium, PASP of 31 and LV systolic function of 60-65% with abnormal diastolic function. 07/18 patient is currently being treated for COPD exacerbation and pneumonia. The patient has acute on chronic hypercarbic and hypoxemic respiratory failure from his COPD with a blood gas of 7.31/ 54/ 175 on admission on 07/06/2021. He would benefit from noninvasive ventilation to prevent further hospitalizations and clinical deterioration from his severe COPD. He could not tolerate the BiPAP pressures. He does tolerate the noninvasive ventilator with the AVAPS mode. He was treated with azithromycin from 07/06-07/14, ceftriaxone from 07/06-07/14, vancomycin from 07/14 and cefepime from 07/14. Will continue X 7 days then DC. White blood cell count is 12.6 today he is afebrile. Chest x-ray shows no focal infiltrates. Sputum normal robin on 07/06/21 and 07/14/2021, COVID RT PCR negative on 07/06/2021. his steroids were scheduled to be discontinued today but he had wheezing once they took him off the BiPAP and he was given Solu-Medrol 125 x 1 today. He remains on levalbuterol 1.25 q.6 hours scheduled and ipratropium 0.5 mg q.6 hours. I will increase these to Q 4 hours standing. he is on budesonide 0.5 mg q.12 hours. I will discontinue his trelegy as he is on maximal doses of beta agonist, muscarinic antagonist and inhaled corticosteroids with a nebulized treatments. 07/19 No wheezes on exam. He remains extremely debilitated with a weak cough. He is on high-flow nasal cannula 30% FiO2 and a saturations are 100%. chest x-ray without focal infiltrates. White blood cell count 11.2. Vancomycin and cefepime a discontinued. Methylprednisolone was decreased to 40 mg IV q.day, metoprolol was decreased to 12.5 q.12 hours, Lasix 20 IV was given, continue levalbuterol 1.25 q.4 hours and ipratropium 0.5 mg q.4 hours nebulized. Continue budesonide 0.5 mg nebulized q.12 hours. noninvasive ventilation p.r.n. during and at night. to assess swallowing function today. Patient's condition is very tenuous and per patient and family wishes he is DNR and DNI discussed with antisqueak applier, Dr. Fagan (2) Acute respiratory failure with hypoxia and hypercapnia: Code(s): J96.01 - Acute respiratory failure with hypoxia; J96.02 - Acute respiratory failure with hypercapnia Status: Acute Assessment and Plan: The patient has acute on chronic hypercarbic and hypoxemic respiratory failure with a blood gas of 7.31/ 54/ 175 on admission on 07/06/2021. The patient has chronic hypercarbic respiratory failure from his COPD and would benefit from BiPAP or noninvasive ventilation. The patient told me the BiPAP pressures were uncomfortable for him this morning. I switched him to in an AVAPS mode And adjusted settings to comfort with a rate of 14, tidal volume 500, EPAP 5, minimal inspiratory pressure 6, maximal inspiratory pressure 25, inspiratory time 1.1, rise of 1 and 30% FiO2. Continue BiPAP for increased work of breathing and COPD exacerbation at this time. and if he should require re-int
[2021-07-19] MEDS: ALBUMIN HUMAN 25% 25 GM/100 ML 100 ML IVPB (09:14)
[2021-07-19] MEDS: methylPREDNISolone SOD SUCC 40 MG VIAL IV PUSH (09:15)
[2021-07-19] MEDS: PANTOPRAZOLE SODIUM IV 40 MG VIAL IV PUSH (09:15)
[2021-07-19] MEDS: ENOXAPARIN 40 MG/0.4 ML SYRINGE SUB-Q (09:15)
--- NOTE | 2021-07-19 11:02 | PM.IMPN ---
Progress Note: A&P Additional Plan (1) Acute respiratory failure with hypoxia and hypercapnia: Code(s): J96.01 - Acute respiratory failure with hypoxia; J96.02 - Acute respiratory failure with hypercapnia Status: Acute Assessment and Plan: Secondary to acute exacerbation of COPD 07/06 placed on BiPAP and was on BiPAP intermittently. 07/09 BiPAP was changed to AVAPS and repeat ABG was improved. Patient intubated 07/09/2021 Echocardiogram done. Continue steroids and bronchodilators He was on empiric antibiotics in the form of Rocephin and azithromycin (initiated on a 07/06/21). Antibiotic has been switched to vancomycin and cefepime on 07/14/2021 and sputum culture sent. Sputum culture with Gram-positive cocci in clusters. WBC count worsened 07/15/2021. Now stable 07/16/2021 Blood and sputum cultures have been sent and are negative for now COVID PCR was negative Extubated 07/17/2021 Remains on BiPAP postextubation. Pulmonary following. (2) COPD exacerbation: Code(s): J44.1 - Chronic obstructive pulmonary disease with (acute) exacerbation Status: Acute Assessment and Plan: See above Restarted on Solu Medrol has he had significant expiratory wheezing 07/18/2021 Pulmonary on board Also on Pulmozyme (3) Chronic hyponatremia: Code(s): E87.1 - Hypo-osmolality and hyponatremia Status: Acute Assessment and Plan: Sodium improved IV fluids were discontinued on 07/11 Monitor sodium and intake/output TSH within normal limits (4) Alcohol withdrawal: Code(s): F10.239 - Alcohol dependence with withdrawal, unspecified Status: Acute Assessment and Plan: Patient was initially transferred to ICU due to alcohol withdrawal which was worsening his respiratory failure Continue thiamine and folic acid Currently on Precedex drip (5) Hypertension: Qualifiers: Hypertension type: unspecified Qualified Code(s): I10 - Essential (primary) hypertension Code(s): I10 - Essential (primary) hypertension Status: Chronic Assessment and Plan: Patient on amlodipine and metoprolol -continue p.r.n. labetalol (6) CAD (coronary artery disease): Qualifiers: Coronary Disease-Associated Artery/Lesion type: [place] artery [place] vs. transplanted heart: [place] heart Associated angina: without angina Qualified Code(s): I25.10 - Atherosclerotic heart disease of [place] coronary artery without angina pectoris Code(s): I25.10 - Atherosclerotic heart disease of [place] coronary artery without angina pectoris Status: Acute Assessment and Plan: EKG reviewed Continue aspirin beta-shannan and statin His troponin was negative on presentation echo Summary 1. Left ventricular chamber dimension is normal. 2. Left ventricular systolic function is normal, estimated at 60-65%. 3. There is no increased left ventricular wall thickness. 4. The left ventricular diastolic function is abnormal. 5. Right ventricular chamber dimension is severely enlarged. 6. Right ventricular systolic function is reduced. 7. Linear artifact in right ventricle suggestive of catheter(s), pacemaker lead(s), or ICD lead(s). 8. Left atrial chamber dimension is mildly enlarged. 9. Right atrial chamber dimension is mildly enlarged. 10. There is mild mitral valve regurgitation. 11. There is mild tricuspid valve regurgitation. (7) Hypotension: Code(s): I95.9 - Hypotension, unspecified Status: Acute Assessment and Plan: Patient was transiently hypotensive on admission likely secondary to sedation and mechanical ventilator He was given fluid bolus and his blood pressure improved. Continue to monitor (8) Hypothyroidism: Qualifiers: Hypothyroidism type: unspecified Qualified Code(s): E03.9 - Hypothyroidism, unspecified Code(s): E03.9 - Hypothyroidism, unspecified Status: Chronic Assessment and Plan: Continue levothyro
[2021-07-19 11:45] LABS: Glucose Point of Care 141 mg/dl (65-105)
--- NOTE | 2021-07-19 11:52 | PCSTNOTE ---
Please refer to the Modified Barium Swallow Evaluation in the EMR.
--- NOTE | 2021-07-19 11:59 | WPDINTPN ---
Progress Note: A&P Assessment and Plan (1) Acute respiratory failure with hypoxia and hypercapnia: Code(s): J96.01 - Acute respiratory failure with hypoxia; J96.02 - Acute respiratory failure with hypercapnia Status: Acute Assessment and Plan: Secondary to acute exacerbation of COPD 07/06 placed on BiPAP and was on BiPAP intermittently. 07/09 BiPAP was changed to AVAPS and repeat ABG was improved. 07/09 intubated in the afternoon -07/17: Extubated successfully to BiPAP Most vision ABG and chest x-ray reviewed Will try Airvo again today and see if patient tolerates. Will try low FiO2 and high flow for additional peep Discussed with Jet with pulmonology Decrease steroids for his recommendations to daily dosing Will try to wean off Precedex infusion Continue bronchodilators Patient has thick yellow to sandoval colored secretions from the ET tube. Antibiotics switched to vancomycin and cefepime (07/14), patient also on Pulmozyme -07/14: repeat sputum culture negative for now -07/06: Blood and sputum cultures are negative Patient will complete a course of antibiotics today COVID PCR was negative Upper and lower extremity swelling, responded well to diuresis, will diurese again today (2) COPD exacerbation: Code(s): J44.1 - Chronic obstructive pulmonary disease with (acute) exacerbation Status: Acute Assessment and Plan: See above (3) Chronic hyponatremia: Code(s): E87.1 - Hypo-osmolality and hyponatremia Status: Acute Assessment and Plan: Sodium stable IV fluids were discontinued on 07/11 Monitor sodium and intake/output TSH within normal limits (4) Alcohol withdrawal: Code(s): F10.239 - Alcohol dependence with withdrawal, unspecified Status: Acute Assessment and Plan: Patient was initially transferred to ICU due to alcohol withdrawal which was worsening his respiratory failure Currently on low-dose Precedex. Will try to wean it off Continue thiamine and folic acid (5) Hypertension: Qualifiers: Hypertension type: unspecified Qualified Code(s): I10 - Essential (primary) hypertension Code(s): I10 - Essential (primary) hypertension Status: Chronic Assessment and Plan: Patient now hypertensive, continue amlodipine and metoprolol -continue p.r.n. labetalol and hydralazine (6) CAD (coronary artery disease): Qualifiers: Coronary Disease-Associated Artery/Lesion type: [place] artery [place] vs. transplanted heart: [place] heart Associated angina: without angina Qualified Code(s): I25.10 - Atherosclerotic heart disease of [place] coronary artery without angina pectoris Code(s): I25.10 - Atherosclerotic heart disease of [place] coronary artery without angina pectoris Status: Acute Assessment and Plan: EKG reviewed Continue aspirin beta-shannan and statin His troponin was negative on presentation echo Summary 1. Left ventricular chamber dimension is normal. 2. Left ventricular systolic function is normal, estimated at 60-65%. 3. There is no increased left ventricular wall thickness. 4. The left ventricular diastolic function is abnormal. 5. Right ventricular chamber dimension is severely enlarged. 6. Right ventricular systolic function is reduced. 7. Linear artifact in right ventricle suggestive of catheter(s), pacemaker lead(s), or ICD lead(s). 8. Left atrial chamber dimension is mildly enlarged. 9. Right atrial chamber dimension is mildly enlarged. 10. There is mild mitral valve regurgitation. 11. There is mild tricuspid valve regurgitation. (7) Hypothyroidism: Qualifiers: Hypothyroidism type: unspecified Qualified Code(s): E03.9 - Hypothyroidism, unspecified Code(s): E03.9 - Hypothyroidism, unspecified Status: Chronic Assessment and Plan: Continue levothyroxine per tube (8) Dysphagia: Code(s): R13.10 - Dysphagia, unspecified Sta
[2021-07-19] MEDS: FUROSEMIDE INJ 40 MG/4 ML VIAL 20 MG IV PUSH (12:18)
--- NOTE | 2021-07-19 12:47 | PCFNICU ---
ICU Rounding Note: Pt current nutrition is NPO. Last recorded weight is 76.8 kg, up from 70.8 kg on admit. Bowel Motility: No BM reported since 07/14-Dulcolax suppository ordered Labs Reviewed:glu 141, Cr 0.5,BUN 56, Na 127, Alb 2.7,Hct 35.2,Hgb 11.4 Meds Noted:Vancomycin, Precedex, Protonix, Xopenex, Synthroid, Atrovent, Lovenox Skin: WNL Additional Notes:Patient had MBS today recommend non-oral feedings. Dobbhoff placed today. Nutrition Recommendations: Jevity 1.2 goal rate 70 ml/hr over 22 hours, providing 1848 kcals/85 gms protein/1243 ml water. Free water flush 30 ml q 4 hours. Following daily in ICU rounds. Will reassess every Saturday and Saturday.
[2021-07-19] MEDS: THIAMINE HCL 100 MG TABLET FEED TUBE (14:01)
[2021-07-19] MEDS: METOPROLOL TARTRATE 12.5 MG TABLET PO ×2 (14:01→20:15)
[2021-07-19] MEDS: ASPIRIN 81 MG CHEWABLE TABLET PO (14:02)
[2021-07-19] MEDS: FOLIC ACID 1 MG TABLET FEED TUBE (14:02)
[2021-07-19] MEDS: amLODIPine BESYLATE 5 MG TABLET PO (14:03)
[2021-07-19] MEDS: polyethylene glycoL 3350 17 GM POWD.PACK PO (14:03)
[2021-07-19] MEDS: dexmedeTOMIDine 400 MCG/100 ML 400 MCG/100 ML BAG IV CONT (16:40)
[2021-07-19 16:52] LABS: Glucose Point of Care 152 mg/dl (65-105)
[2021-07-19] MEDS: MELATONIN 3 MG TABLET PO (20:14)
[2021-07-19 23:28] LABS: Glucose Point of Care 131 mg/dl (65-105)
[2021-07-20] VITALS (40 sets, daily range): BP systolic 91–168; BP diastolic 51–85; PULSE 61–112; RESP 15–27; TEMP 36.2–36.9; O2SAT 92–99
[2021-07-20] MEDS: IPRATROPIUM BR 0.02% INH SOLN 0.5 MG/2.5 ML VIAL INHALATION ×5 (04:08→20:18)
[2021-07-20] MEDS: LEVOTHYROXINE SODIUM 12.5 MCG TABLET FEED TUBE (05:42)
[2021-07-20] MEDS: LEVOTHYROXINE SODIUM 50 MCG TABLET FEED TUBE (05:42)
[2021-07-20] MEDS: CENTRAL LINE FLUSH 10 ML IV PUSH ×3 (05:42→20:33)
[2021-07-20 06:08] LABS: Hematocrit 35.5 % (42.0-52.0); Hemoglobin 11.4 g/dL (14.0-18.0); Mean Corpuscular HGB Conc 32.1 g/dl (32-36); Mean Corpuscular Hemoglobin 31.8 pg (26-34); Mean Corpuscular Volume 99.2 fl (80-100); Mean Platelet Volume 9.9 fl (7.4-10.4); Platelet Count Result 207 k/mm3 (150-375); Red Blood Count 3.58 M/mm3 (4.6-6.20); Red Cell Distribution Width 13.1 % (11.5-14.5)
[2021-07-20 06:28] LABS: Alanine Aminotransferase 45 U/L (4-50); Albumin Level 2.9 g/dL (3.5-5.1); Alkaline Phosphatase 40 U/L (38-126); Anion Gap 0 mmol/L (8-16); Aspartate Amino Transferase 34 U/L (17-59); Bilirubin,Total 0.9 mg/dL (0.2-1.3); Blood Urea Nitrogen 41 mg/dL (9-20); Calcium 7.6 mg/dL (8.4-10.2); Carbon Dioxide 38 mmol/L (22-30); Chloride 91 mmol/L (98-107); Estimated CRCL calculation 95 ml/min; Estimated Glomerular Filt Rate > 60; Glucose 89 mg/dL (65-110); Magnesium 2.5 mg/dL (1.6-2.3); Potassium 4.2 mmol/L (3.4-5.0); Sodium 129 mmol/L (137-145)
--- NOTE | 2021-07-20 08:45 | WPDINTPN ---
Progress Note: A&P Assessment and Plan (1) Acute respiratory failure with hypoxia and hypercapnia: Code(s): J96.01 - Acute respiratory failure with hypoxia; J96.02 - Acute respiratory failure with hypercapnia Status: Acute Assessment and Plan: Secondary to acute exacerbation of COPD 07/06 placed on BiPAP and was on BiPAP intermittently. 07/09 BiPAP was changed to AVAPS and repeat ABG was improved. 07/09 intubated in the afternoon -07/17: Extubated successfully to BiPAP Most recent ABG and chest x-ray reviewed Continue Airvo during the day as tolerated and will try to wean it off to nasal cannula Continue BiPAP p.r.n. at night Discussed with Jet with pulmonology Decrease steroids further Precedex infusion is on standby Continue bronchodilators Patient has thick yellow to sandoval colored secretions from the ET tube. Antibiotics switched to vancomycin and cefepime (07/14), patient also on Pulmozyme -07/14: repeat sputum culture negative for now -07/06: Blood and sputum cultures are negative Patient has completed course of antibiotics COVID PCR was negative Upper and lower extremity swelling is improved, responded well to diuresis, will diurese again today (2) COPD exacerbation: Code(s): J44.1 - Chronic obstructive pulmonary disease with (acute) exacerbation Status: Acute Assessment and Plan: See above (3) Chronic hyponatremia: Code(s): E87.1 - Hypo-osmolality and hyponatremia Status: Acute Assessment and Plan: Sodium stable IV fluids were discontinued on 07/11 Monitor sodium and intake/output TSH within normal limits (4) Alcohol withdrawal: Code(s): F10.239 - Alcohol dependence with withdrawal, unspecified Status: Acute Assessment and Plan: Patient was initially transferred to ICU due to alcohol withdrawal which was worsening his respiratory failure Currently off Precedex. Continue thiamine and folic acid (5) Hypertension: Qualifiers: Hypertension type: unspecified Qualified Code(s): I10 - Essential (primary) hypertension Code(s): I10 - Essential (primary) hypertension Status: Chronic Assessment and Plan: Patient now hypertensive, continue amlodipine and metoprolol -continue p.r.n. labetalol and hydralazine (6) CAD (coronary artery disease): Qualifiers: Coronary Disease-Associated Artery/Lesion type: [place] artery [place] vs. transplanted heart: [place] heart Associated angina: without angina Qualified Code(s): I25.10 - Atherosclerotic heart disease of [place] coronary artery without angina pectoris Code(s): I25.10 - Atherosclerotic heart disease of [place] coronary artery without angina pectoris Status: Acute Assessment and Plan: EKG reviewed Continue aspirin beta-shannan and statin His troponin was negative on presentation echo Summary 1. Left ventricular chamber dimension is normal. 2. Left ventricular systolic function is normal, estimated at 60-65%. 3. There is no increased left ventricular wall thickness. 4. The left ventricular diastolic function is abnormal. 5. Right ventricular chamber dimension is severely enlarged. 6. Right ventricular systolic function is reduced. 7. Linear artifact in right ventricle suggestive of catheter(s), pacemaker lead(s), or ICD lead(s). 8. Left atrial chamber dimension is mildly enlarged. 9. Right atrial chamber dimension is mildly enlarged. 10. There is mild mitral valve regurgitation. 11. There is mild tricuspid valve regurgitation. (7) Hypothyroidism: Qualifiers: Hypothyroidism type: unspecified Qualified Code(s): E03.9 - Hypothyroidism, unspecified Code(s): E03.9 - Hypothyroidism, unspecified Status: Chronic Assessment and Plan: Continue levothyroxine per tube (8) Dysphagia: Code(s): R13.10 - Dysphagia, unspecified Status: Acute Assessment and Plan: Patient failed
[2021-07-20] MEDS: PANTOPRAZOLE SODIUM IV 40 MG VIAL IV PUSH (09:00)
[2021-07-20] MEDS: ASPIRIN 81 MG CHEWABLE TABLET PO (09:00)
[2021-07-20] MEDS: methylPREDNISolone SOD SUCC 40 MG VIAL 20 MG IV PUSH (09:00)
[2021-07-20] MEDS: amLODIPine BESYLATE 5 MG TABLET PO (09:00)
[2021-07-20] MEDS: FOLIC ACID 1 MG TABLET FEED TUBE (09:00)
[2021-07-20] MEDS: THIAMINE HCL 100 MG TABLET FEED TUBE (09:00)
[2021-07-20] MEDS: FUROSEMIDE INJ 40 MG/4 ML VIAL 20 MG IV PUSH (09:00)
[2021-07-20] MEDS: BUDESONIDE RESPULE NEB 0.5 MG/2 ML AMP INHALATION ×2 (09:10→20:18)
--- NOTE | 2021-07-20 09:19 | PM.PNPUL ---
Progress Note: A&P Assessment and Plan (1) COPD exacerbation: Code(s): J44.1 - Chronic obstructive pulmonary disease with (acute) exacerbation Status: Acute Assessment and Plan: patient with a history of tobacco use and was seen in the Pulmonary Clinic on 07/12/2020 with a clinical diagnosis of COPD. PFTs and a 6 minutes walk were recommended but the patient declined. Pulmonary rehabilitation as well as COVID, pneumococcal booster in influenza vaccine recommended but declined. The patient has severe apical predominant panlobular emphysema on his high-resolution CT scan on 07/15/2021. The patient has acute on chronic hypercarbic and hypoxemic respiratory failure with a blood gas of 7.31/ 54/ 175 on admission on 07/06/2021. echocardiogram on 07/08/2021 demonstrates a severely enlarged right ventricle with decreased systolic function, mildly enlarged right atrium, PASP of 31 and LV systolic function of 60-65% with abnormal diastolic function. 07/18 patient is currently being treated for COPD exacerbation and pneumonia. The patient has acute on chronic hypercarbic and hypoxemic respiratory failure from his COPD with a blood gas of 7.31/ 54/ 175 on admission on 07/06/2021. He would benefit from noninvasive ventilation to prevent further hospitalizations and clinical deterioration from his severe COPD. He could not tolerate the BiPAP pressures. He does tolerate the noninvasive ventilator with the AVAPS mode. He was treated with azithromycin from 07/06-07/14, ceftriaxone from 07/06-07/14, vancomycin from 07/14 and cefepime from 07/14. Will continue X 7 days then DC. White blood cell count is 12.6 today he is afebrile. Chest x-ray shows no focal infiltrates. Sputum normal robin on 07/06/21 and 07/14/2021, COVID RT PCR negative on 07/06/2021. his steroids were scheduled to be discontinued today but he had wheezing once they took him off the BiPAP and he was given Solu-Medrol 125 x 1 today. He remains on levalbuterol 1.25 q.6 hours scheduled and ipratropium 0.5 mg q.6 hours. I will increase these to Q 4 hours standing. he is on budesonide 0.5 mg q.12 hours. I will discontinue his trelegy as he is on maximal doses of beta agonist, muscarinic antagonist and inhaled corticosteroids with a nebulized treatments. 07/19 No wheezes on exam. He remains extremely debilitated with a weak cough. He is on high-flow nasal cannula 30% FiO2 and a saturations are 100%. chest x-ray without focal infiltrates. White blood cell count 11.2. Vancomycin and cefepime a discontinued. Methylprednisolone was decreased to 40 mg IV q.day, metoprolol was decreased to 12.5 q.12 hours, Lasix 20 IV was given, continue levalbuterol 1.25 q.4 hours and ipratropium 0.5 mg q.4 hours nebulized. Continue budesonide 0.5 mg nebulized q.12 hours. noninvasive ventilation p.r.n. during and at night. to assess swallowing function today. Patient's condition is very tenuous and per patient and family wishes he is DNR and DNI 07/20 Patient wore noninvasive ventilation with the a VATS mode overnight and said he did well. Currently he is off the noninvasive an on high-flow nasal cannula 60 L and 40% with saturations 96. He states he is slowly improving. He is now off the Precedex. Patient failed his barium swallow yesterday and a Dobbhoff was placed. Tube feeds to start today. Solu-Medrol was decreased to 20 mg q.day today. Continue levalbuterol, ipratropium and budesonide nebulizers. Patient appears comfortable on high-flow nasal cannula 60 L 40% FiO2 and will attempt to wean to nasal cannula later today. discussed with forest management teacher, Dr. Fagan (2) Acute respiratory failure with hypoxia and hypercapnia: Code(s): J96.01 - Acute respiratory failure with hypoxia; J96.02 - Acute respiratory failure with hypercapnia Status: Acute Assessment and Plan: The patient has acute on chronic hypercarbic and hypoxemic respiratory failure with a blood gas
[2021-07-20] MEDS: ENOXAPARIN 40 MG/0.4 ML SYRINGE SUB-Q (11:27)
[2021-07-20] MEDS: METOPROLOL TARTRATE 12.5 MG TABLET PO ×2 (11:28→20:33)
--- NOTE | 2021-07-20 11:39 | PCFNICU ---
ICU Rounding Note: Pt current nutrition is TwoCAL HN. Last recorded weight is 75.5 kg,up from 70.8 kg on admit. Bowel Motility:+BM reported 07/14-Miralax started today. Labs Reviewed: Mg 2.5, Cr 0.5, Hct 35.5,Hgb 11.4, BUN 41, Na 129 Meds Noted:Vancomycin, Protonix, Xopenex, Synthroid, Atrovent, Lovenox, Miralax Skin: WNL Additional Notes: Patient had Dobhoff placed yesterday. Due to continuous Bipap at night, [facility] Specialist would like to run tube feedings for 12 hours during the day. Nutrition Recommendations: TwoCal HN goal rate at 80 ml/hr over 12 hours. Tube feedings will providing 1920 kcals/80 gms protein/1232 ml water. Free water flush 30 ml q 4 hours, Na 129 at this time. Agree with diet orders. Following daily in ICU rounds. Will reassess every Saturday and Saturday.
[2021-07-20 11:49] LABS: Anion Gap 2 mmol/L (8-16); Blood Urea Nitrogen 39 mg/dL (9-20); Calcium 7.7 mg/dL (8.4-10.2); Carbon Dioxide 39 mmol/L (22-30); Chloride 90 mmol/L (98-107); Estimated CRCL calculation 81 ml/min; Estimated Glomerular Filt Rate > 60; Glucose 100 mg/dL (65-110); Magnesium 2.4 mg/dL (1.6-2.3); Potassium 4.7 mmol/L (3.4-5.0); Sodium 131 mmol/L (137-145)
[2021-07-20 11:49] LABS: Glucose Point of Care 101 mg/dl (65-105)
--- NOTE | 2021-07-20 11:53 | PCPTNOTE ---
The patient treatment was not able to be completed due to patient stating that he doesn't feel well and his stomach feels very bloated. Will plan to continue treatment per plan of care.
[2021-07-20] MEDS: BISACODYL 10 MG SUPPOSITORY RECTAL (12:52)
[2021-07-20] MEDS: METOPROLOL TARTRATE INJ 5 MG/5 ML VIAL IV PUSH (12:52)
--- NOTE | 2021-07-20 13:12 | PC.NURSE ---
Patient returned to bipap. Patient complaining of increasing shortness of breath, appears more tachypneic, and in distres. Patient assessed by Dr. Fagan, no additional orders at this time. Will continue to monitor closely.
[2021-07-20] MEDS: LORazepam INJ (*CRX) 2 MG/ML VIAL 1 MG IV PUSH (13:48)
[2021-07-20] MEDS: dexmedeTOMIDine 400 MCG/100 ML 400 MCG/100 ML BAG IV CONT (13:54)
--- NOTE | 2021-07-20 15:03 | PC.NURSE ---
Called patient's spouse, Harika, to update on change in status. Will continue to monitor closely.
--- NOTE | 2021-07-20 16:23 | PC.NURSE ---
Dr. Fagan notified of stat chest xray results, no further orders at this time. Patient resting comfortably on bipap at this time. No complaints of shortness of breath, or distress noted.
[2021-07-20 17:30] LABS: Glucose Point of Care 137 mg/dl (65-105)
[2021-07-20] MEDS: MELATONIN 3 MG TABLET PO (20:33)
[2021-07-20 20:45] LABS: Vancomycin Trough 6.9 ug/mL (10.0-20.0)
[2021-07-20 23:43] LABS: Glucose Point of Care 123 mg/dl (65-105)
[2021-07-20] MEDS: dexmedeTOMIDine 400 MCG/100 ML 400 MCG/100 ML BAG 7.55 MCG IV CONT (23:43)
[2021-07-21] VITALS (40 sets, daily range): BP systolic 82–156; BP diastolic 49–82; PULSE 75–124; RESP 15–30; TEMP 36.2–36.9; O2SAT 92–99
[2021-07-21] MEDS: IPRATROPIUM BR 0.02% INH SOLN 0.5 MG/2.5 ML VIAL INHALATION ×7 (00:20→23:31)
[2021-07-21] MEDS: CENTRAL LINE FLUSH 10 ML IV PUSH ×3 (05:49→20:23)
[2021-07-21] MEDS: LEVOTHYROXINE SODIUM 12.5 MCG TABLET FEED TUBE (05:50)
[2021-07-21] MEDS: LEVOTHYROXINE SODIUM 50 MCG TABLET FEED TUBE (05:50)
[2021-07-21 05:54] LABS: Hematocrit 32.7 % (42.0-52.0); Hemoglobin 10.5 g/dL (14.0-18.0); Mean Corpuscular HGB Conc 32.1 g/dl (32-36); Mean Corpuscular Hemoglobin 32.5 pg (26-34); Mean Corpuscular Volume 101.2 fl (80-100); Mean Platelet Volume 9.7 fl (7.4-10.4); Platelet Count Result 158 k/mm3 (150-375); Red Blood Count 3.23 M/mm3 (4.6-6.20); Red Cell Distribution Width 12.8 % (11.5-14.5); White Blood Count 8.4 K/mm3 (4.5-10.0)
[2021-07-21 06:04] LABS: Alanine Aminotransferase 42 U/L (4-50); Albumin Level 2.6 g/dL (3.5-5.1); Alkaline Phosphatase 38 U/L (38-126); Anion Gap -1 mmol/L (8-16); Aspartate Amino Transferase 31 U/L (17-59); Bilirubin,Total 0.8 mg/dL (0.2-1.3); Blood Urea Nitrogen 44 mg/dL (9-20); Calcium 7.3 mg/dL (8.4-10.2); Carbon Dioxide 38 mmol/L (22-30); Chloride 93 mmol/L (98-107); Estimated CRCL calculation 95 ml/min; Estimated Glomerular Filt Rate > 60; Glucose 87 mg/dL (65-110); Magnesium 2.6 mg/dL (1.6-2.3); Potassium 4.2 mmol/L (3.4-5.0); Sodium 130 mmol/L (137-145)
[2021-07-21] MEDS: ASPIRIN 81 MG CHEWABLE TABLET PO (08:02)
[2021-07-21] MEDS: THIAMINE HCL 100 MG TABLET FEED TUBE (08:02)
[2021-07-21] MEDS: ENOXAPARIN 40 MG/0.4 ML SYRINGE SUB-Q (08:02)
[2021-07-21] MEDS: METOPROLOL TARTRATE 12.5 MG TABLET PO ×2 (08:02→21:05)
[2021-07-21] MEDS: amLODIPine BESYLATE 5 MG TABLET PO (08:02)
[2021-07-21] MEDS: FOLIC ACID 1 MG TABLET FEED TUBE (08:02)
[2021-07-21] MEDS: PANTOPRAZOLE SODIUM IV 40 MG VIAL IV PUSH (08:03)
--- NOTE | 2021-07-21 08:39 | WPDINTPN ---
Progress Note: A&P Assessment and Plan (1) Acute respiratory failure with hypoxia and hypercapnia: Code(s): J96.01 - Acute respiratory failure with hypoxia; J96.02 - Acute respiratory failure with hypercapnia Status: Acute Assessment and Plan: Secondary to acute exacerbation of COPD 07/06 placed on BiPAP and was on BiPAP intermittently. 07/09 BiPAP was changed to AVAPS and repeat ABG was improved. 07/09 intubated in the afternoon -07/17: Extubated successfully to BiPAP Most recent ABG and chest x-ray reviewed Was on BiPAP yesterday and through the night. Transition to nasal cannula this morning monitor closely and use BiPAP on p.r.n. and nightly basis Discussed with Dr. Chaudhary with pulmonology He will discontinue systemic steroids in continue inhaled steroid Precedex infusion will be weaned Continue bronchodilators Patient has thick yellow to sandoval colored secretions from the ET tube. Antibiotics switched to vancomycin and cefepime (07/14), patient also on Pulmozyme -07/14: repeat sputum culture negative for now -07/06: Blood and sputum cultures are negative Patient has completed course of antibiotics COVID PCR was negative Upper and lower extremity swelling is improved with diuresis (2) COPD exacerbation: Code(s): J44.1 - Chronic obstructive pulmonary disease with (acute) exacerbation Status: Acute Assessment and Plan: See above (3) Chronic hyponatremia: Code(s): E87.1 - Hypo-osmolality and hyponatremia Status: Acute Assessment and Plan: Sodium stable IV fluids were discontinued on 07/11 Monitor sodium and intake/output TSH within normal limits (4) Alcohol withdrawal: Code(s): F10.239 - Alcohol dependence with withdrawal, unspecified Status: Acute Assessment and Plan: Patient was initially transferred to ICU due to alcohol withdrawal which was worsening his respiratory failure Currently off Precedex. Continue thiamine and folic acid (5) Hypertension: Qualifiers: Hypertension type: unspecified Qualified Code(s): I10 - Essential (primary) hypertension Code(s): I10 - Essential (primary) hypertension Status: Chronic Assessment and Plan: Patient now hypertensive, continue amlodipine and metoprolol -continue p.r.n. labetalol and hydralazine (6) CAD (coronary artery disease): Qualifiers: Associated angina: without angina Coronary Disease-Associated Artery/Lesion type: [place] artery [place] vs. transplanted heart: [place] heart Qualified Code(s): I25.10 - Atherosclerotic heart disease of [place] coronary artery without angina pectoris Code(s): I25.10 - Atherosclerotic heart disease of [place] coronary artery without angina pectoris Status: Acute Assessment and Plan: EKG reviewed Continue aspirin beta-shannan and statin His troponin was negative on presentation echo Summary 1. Left ventricular chamber dimension is normal. 2. Left ventricular systolic function is normal, estimated at 60-65%. 3. There is no increased left ventricular wall thickness. 4. The left ventricular diastolic function is abnormal. 5. Right ventricular chamber dimension is severely enlarged. 6. Right ventricular systolic function is reduced. 7. Linear artifact in right ventricle suggestive of catheter(s), pacemaker lead(s), or ICD lead(s). 8. Left atrial chamber dimension is mildly enlarged. 9. Right atrial chamber dimension is mildly enlarged. 10. There is mild mitral valve regurgitation. 11. There is mild tricuspid valve regurgitation. (7) Hypothyroidism: Qualifiers: Hypothyroidism type: unspecified Qualified Code(s): E03.9 - Hypothyroidism, unspecified Code(s): E03.9 - Hypothyroidism, unspecified Status: Chronic Assessment and Plan: Continue levothyroxine per tube (8) Dysphagia: Code(s): R13.10 - Dysphagia, unspecified Status: Acute Assessme
--- NOTE | 2021-07-21 10:29 | PM.IMPN ---
Progress Note: A&P Additional Plan (1) Acute respiratory failure with hypoxia and hypercapnia: Code(s): J96.01 - Acute respiratory failure with hypoxia; J96.02 - Acute respiratory failure with hypercapnia Status: Acute Assessment and Plan: Secondary to acute exacerbation of COPD 07/06 placed on BiPAP and was on BiPAP intermittently. 07/09 BiPAP was changed to AVAPS and repeat ABG was improved. Patient intubated 07/09/2021 Echocardiogram done. Continue steroids and bronchodilators He was on empiric antibiotics in the form of Rocephin and azithromycin (initiated on a 07/06/21). Antibiotic has been switched to vancomycin and cefepime on 07/14/2021 and sputum culture sent. Sputum culture with Gram-positive cocci in clusters. WBC count worsened 07/15/2021. Now stable 07/16/2021 Blood and sputum cultures have been sent and are negative for now -07/14: repeat sputum culture negative for now -07/06: Blood and sputum cultures are negative COVID PCR was negative Extubated 07/17/2021 Was on NIV post extubation. Currently now on HiFlo nasal oxygen. Pulmonary following. (2) COPD exacerbation: Code(s): J44.1 - Chronic obstructive pulmonary disease with (acute) exacerbation Status: Acute Assessment and Plan: See above Restarted on Solu Medrol has he had significant expiratory wheezing 07/18/2021 Pulmonary on board (3) Chronic hyponatremia: Code(s): E87.1 - Hypo-osmolality and hyponatremia Status: Acute Assessment and Plan: Sodium improved IV fluids were discontinued on 07/11 Monitor sodium and intake/output TSH within normal limits (4) Alcohol withdrawal: Code(s): F10.239 - Alcohol dependence with withdrawal, unspecified Status: Acute Assessment and Plan: Patient was initially transferred to ICU due to alcohol withdrawal which was worsening his respiratory failure Continue thiamine and folic acid Now off Precedex drip (5) Hypertension: Qualifiers: Hypertension type: unspecified Qualified Code(s): I10 - Essential (primary) hypertension Code(s): I10 - Essential (primary) hypertension Status: Chronic Assessment and Plan: Patient on amlodipine and metoprolol -continue p.r.n. labetalol (6) CAD (coronary artery disease): Qualifiers: Coronary Disease-Associated Artery/Lesion type: [place] artery [place] vs. transplanted heart: [place] heart Associated angina: without angina Qualified Code(s): I25.10 - Atherosclerotic heart disease of [place] coronary artery without angina pectoris Code(s): I25.10 - Atherosclerotic heart disease of [place] coronary artery without angina pectoris Status: Acute Assessment and Plan: EKG reviewed Continue aspirin beta-shannan and statin His troponin was negative on presentation echo Summary 1. Left ventricular chamber dimension is normal. 2. Left ventricular systolic function is normal, estimated at 60-65%. 3. There is no increased left ventricular wall thickness. 4. The left ventricular diastolic function is abnormal. 5. Right ventricular chamber dimension is severely enlarged. 6. Right ventricular systolic function is reduced. 7. Linear artifact in right ventricle suggestive of catheter(s), pacemaker lead(s), or ICD lead(s). 8. Left atrial chamber dimension is mildly enlarged. 9. Right atrial chamber dimension is mildly enlarged. 10. There is mild mitral valve regurgitation. 11. There is mild tricuspid valve regurgitation. (7) Hypotension: Code(s): I95.9 - Hypotension, unspecified Status: Acute Assessment and Plan: Patient was transiently hypotensive on admission likely secondary to sedation and mechanical ventilator He was given fluid bolus and his blood pressure improved. Continue to monitor (8) Hypothyroidism: Qualifiers: Hypothyroidism type: unspecified Qualified Code(s): E03.9 - Hypothyroidism, unspecified [place]
[2021-07-21] MEDS: PHENOL/SOD PHENO SPRAY CHERRY (*BKC) 1 SPRAY MUCOUS MEM (10:47)
--- NOTE | 2021-07-21 10:49 | PM.PNPUL ---
Progress Note: A&P Assessment and Plan (1) COPD exacerbation: Code(s): J44.1 - Chronic obstructive pulmonary disease with (acute) exacerbation Status: Acute Assessment and Plan: patient with a history of tobacco use and was seen in the Pulmonary Clinic on 07/12/2020 with a clinical diagnosis of COPD. PFTs and a 6 minutes walk were recommended but the patient declined. Pulmonary rehabilitation as well as COVID, pneumococcal booster in influenza vaccine recommended but declined. The patient has severe apical predominant panlobular emphysema on his high-resolution CT scan on 07/15/2021. The patient has acute on chronic hypercarbic and hypoxemic respiratory failure with a blood gas of 7.31/ 54/ 175 on admission on 07/06/2021. echocardiogram on 07/08/2021 demonstrates a severely enlarged right ventricle with decreased systolic function, mildly enlarged right atrium, PASP of 31 and LV systolic function of 60-65% with abnormal diastolic function. 07/18 patient is currently being treated for COPD exacerbation and pneumonia. The patient has acute on chronic hypercarbic and hypoxemic respiratory failure from his COPD with a blood gas of 7.31/ 54/ 175 on admission on 07/06/2021. He would benefit from noninvasive ventilation to prevent further hospitalizations and clinical deterioration from his severe COPD. He could not tolerate the BiPAP pressures. He does tolerate the noninvasive ventilator with the AVAPS mode. He was treated with azithromycin from 07/06-07/14, ceftriaxone from 07/06-07/14, vancomycin from 07/14 and cefepime from 07/14. Will continue X 7 days then DC. White blood cell count is 12.6 today he is afebrile. Chest x-ray shows no focal infiltrates. Sputum normal robin on 07/06/21 and 07/14/2021, COVID RT PCR negative on 07/06/2021. his steroids were scheduled to be discontinued today but he had wheezing once they took him off the BiPAP and he was given Solu-Medrol 125 x 1 today. He remains on levalbuterol 1.25 q.6 hours scheduled and ipratropium 0.5 mg q.6 hours. I will increase these to Q 4 hours standing. he is on budesonide 0.5 mg q.12 hours. I will discontinue his trelegy as he is on maximal doses of beta agonist, muscarinic antagonist and inhaled corticosteroids with a nebulized treatments. 07/19 No wheezes on exam. He remains extremely debilitated with a weak cough. He is on high-flow nasal cannula 30% FiO2 and a saturations are 100%. chest x-ray without focal infiltrates. White blood cell count 11.2. Vancomycin and cefepime a discontinued. Methylprednisolone was decreased to 40 mg IV q.day, metoprolol was decreased to 12.5 q.12 hours, Lasix 20 IV was given, continue levalbuterol 1.25 q.4 hours and ipratropium 0.5 mg q.4 hours nebulized. Continue budesonide 0.5 mg nebulized q.12 hours. noninvasive ventilation p.r.n. during and at night. to assess swallowing function today. Patient's condition is very tenuous and per patient and family wishes he is DNR and DNI 07/20 Patient wore noninvasive ventilation with the a VATS mode overnight and said he did well. Currently he is off the noninvasive an on high-flow nasal cannula 60 L and 40% with saturations 96. He states he is slowly improving. He is now off the Precedex. Patient failed his barium swallow yesterday and a Dobbhoff was placed. Tube feeds to start today. Solu-Medrol was decreased to 20 mg q.day today. Continue levalbuterol, ipratropium and budesonide nebulizers. Patient appears comfortable on high-flow nasal cannula 60 L 40% FiO2 and will attempt to wean to nasal cannula later today. DC solumedrol. 07/21 Wore noninvasive ventilation with the AVAPS mode overnight and said he did well. Currently he is on 5 L nasal cannula saturations 98%. says he is breathing fine. No wheezing. Diuresing with Lasix. Tolerating some tube feeds. Continue levalbuterol, ipratropium and budesonide nebulizers. Off steroids from 07/20. Off antibiotics f
[2021-07-21] MEDS: BUDESONIDE RESPULE NEB 0.5 MG/2 ML AMP INHALATION ×2 (11:09→19:55)
[2021-07-21 11:32] LABS: Glucose Point of Care 115 mg/dl (65-105)
--- NOTE | 2021-07-21 11:39 | PCOTNOTE ---
Attempted to see patient this am, however RN advised not to see patient due to medical status.
--- NOTE | 2021-07-21 11:57 | PCNFU ---
Nutrition Follow-Up Complete: Less than optimal enteral nutrition composition as related to intake from enteral nutrients as evidenced by current tube feeding rate. Goal: Meet estimated nutritional needs Patient has limited progress towards goal. We will continue current goal. Pt current nutrition is TwoCal HN at 20 ml/hr over 22 hours. Last recorded weight is 74.3 kg, up from 70.8 kg on admit. Bowel Motility:+BM reported 07/21 Labs Reviewed:Cr 0.5, BUN 44, Alb 2.6,Na 130, Hct 32.7,Hgb 10.5 Meds Noted:Vancomycin, Protonix, Xopenex, Synthroid, Atrovent, Lovenox, Miralax, Folic Acid, Precedex, Thiamine. Skin: WNL Additional Notes: Patient had respiratory distress yesterday, placed back on Bipap. Tube feeding stopped. This morning patient is current with Nasal cannula, tube feeding restarted at this time with TwoCal HN at 20 ml/hr over 12 hours. Nutrition Recommendations for TwoCal HN at 80 ml/hr over 12 hours, which will provide 1920 kcals/80 gm protein/1232 ml water. Free water flush 30 ml q 4 hours. Agree with diet orders. Monitoring: Will monitor in ICU rounds and reassess every Saturday and Saturday.
[2021-07-21 17:14] LABS: Glucose Point of Care 103 mg/dl (65-105)
[2021-07-21] MEDS: dexmedeTOMIDine 400 MCG/100 ML 400 MCG/100 ML BAG 5.66 MCG IV CONT (17:52)
[2021-07-21] MEDS: LORazepam INJ (*CRX) 2 MG/ML VIAL 1 MG IV PUSH (19:40)
[2021-07-21] MEDS: MELATONIN 3 MG TABLET PO (21:05)
[2021-07-22] VITALS (37 sets, daily range): BP systolic 84–155; BP diastolic 52–73; PULSE 44–102; RESP 18–24; TEMP 36.4–37.8; O2SAT 92–96
[2021-07-22 00:34] LABS: Glucose Point of Care 104 mg/dl (65-105)
[2021-07-22] MEDS: dexmedeTOMIDine 400 MCG/100 ML 400 MCG/100 ML BAG 11.33 MCG IV CONT (02:21)
[2021-07-22] MEDS: IPRATROPIUM BR 0.02% INH SOLN 0.5 MG/2.5 ML VIAL INHALATION ×5 (03:31→20:46)
[2021-07-22] MEDS: CENTRAL LINE FLUSH 10 ML IV PUSH ×3 (05:13→20:40)
[2021-07-22 05:21] LABS: Hematocrit 33.7 % (42.0-52.0); Hemoglobin 10.6 g/dL (14.0-18.0); Mean Corpuscular HGB Conc 31.5 g/dl (32-36); Mean Corpuscular Hemoglobin 31.5 pg (26-34); Mean Platelet Volume 9.5 fl (7.4-10.4); Platelet Count Result 156 k/mm3 (150-375); Red Blood Count 3.37 M/mm3 (4.6-6.20); White Blood Count 9.1 K/mm3 (4.5-10.0)
[2021-07-22 05:34] LABS: Alanine Aminotransferase 45 U/L (4-50); Albumin Level 2.7 g/dL (3.5-5.1); Alkaline Phosphatase 43 U/L (38-126); Anion Gap 1 mmol/L (8-16); Aspartate Amino Transferase 32 U/L (17-59); Bilirubin,Total 0.8 mg/dL (0.2-1.3); Blood Urea Nitrogen 39 mg/dL (9-20); Calcium 7.5 mg/dL (8.4-10.2); Carbon Dioxide 38 mmol/L (22-30); Chloride 93 mmol/L (98-107); Estimated CRCL calculation 81 ml/min; Estimated Glomerular Filt Rate > 60; Glucose 87 mg/dL (65-110); Magnesium 2.5 mg/dL (1.6-2.3); Sodium 132 mmol/L (137-145)
[2021-07-22] MEDS: LEVOTHYROXINE SODIUM 50 MCG TABLET FEED TUBE (06:14)
[2021-07-22] MEDS: LEVOTHYROXINE SODIUM 12.5 MCG TABLET FEED TUBE (06:14)
[2021-07-22] MEDS: BUDESONIDE RESPULE NEB 0.5 MG/2 ML AMP INHALATION ×2 (07:44→20:47)
[2021-07-22] MEDS: ASPIRIN 81 MG CHEWABLE TABLET PO (08:08)
[2021-07-22] MEDS: METOPROLOL TARTRATE 12.5 MG TABLET PO ×2 (08:08→20:40)
[2021-07-22] MEDS: THIAMINE HCL 100 MG TABLET FEED TUBE (08:08)
[2021-07-22] MEDS: PANTOPRAZOLE SODIUM IV 40 MG VIAL IV PUSH (08:08)
[2021-07-22] MEDS: amLODIPine BESYLATE 5 MG TABLET PO (08:08)
[2021-07-22] MEDS: FOLIC ACID 1 MG TABLET FEED TUBE (08:09)
[2021-07-22] MEDS: ENOXAPARIN 40 MG/0.4 ML SYRINGE SUB-Q (08:09)
--- NOTE | 2021-07-22 10:17 | WPDINTPN ---
Progress Note: A&P Assessment and Plan (1) Acute respiratory failure with hypoxia and hypercapnia: Code(s): J96.01 - Acute respiratory failure with hypoxia; J96.02 - Acute respiratory failure with hypercapnia Status: Acute Assessment and Plan: Secondary to acute exacerbation of COPD 07/06 placed on BiPAP and was on BiPAP intermittently. 07/09 BiPAP was changed to AVAPS and repeat ABG was improved. 07/09 intubated in the afternoon -07/17: Extubated successfully to BiPAP Most recent ABG and chest x-ray reviewed Was nasal cannula for most of the day with intermittent use of BiPAP and BiPAP through the night. Transition to nasal cannula this morning monitor closely and use BiPAP on p.r.n. and nightly basis He is off systemic steroids now and will continue inhaled steroid Precedex infusion Continue bronchodilators Patient has thick yellow to sandoval colored secretions from the ET tube. Antibiotics switched to vancomycin and cefepime (07/14), patient also on Pulmozyme -07/14: repeat sputum culture negative for now -07/06: Blood and sputum cultures are negative Patient has completed course of antibiotics COVID PCR was negative Upper and lower extremity swelling is improved with diuresis (2) COPD exacerbation: Code(s): J44.1 - Chronic obstructive pulmonary disease with (acute) exacerbation Status: Acute Assessment and Plan: See above (3) Chronic hyponatremia: Code(s): E87.1 - Hypo-osmolality and hyponatremia Status: Acute Assessment and Plan: Sodium stable IV fluids were discontinued on 07/11 Monitor sodium and intake/output TSH within normal limits (4) Alcohol withdrawal: Code(s): F10.239 - Alcohol dependence with withdrawal, unspecified Status: Acute Assessment and Plan: Patient was initially transferred to ICU due to alcohol withdrawal which was worsening his respiratory failure Currently off Precedex. Continue thiamine and folic acid (5) Hypertension: Qualifiers: Hypertension type: unspecified Qualified Code(s): I10 - Essential (primary) hypertension Code(s): I10 - Essential (primary) hypertension Status: Chronic Assessment and Plan: Patient now hypertensive, continue amlodipine and metoprolol -continue p.r.n. labetalol and hydralazine (6) CAD (coronary artery disease): Qualifiers: Coronary Disease-Associated Artery/Lesion type: [place] artery [place] vs. transplanted heart: [place] heart Associated angina: without angina Qualified Code(s): I25.10 - Atherosclerotic heart disease of [place] coronary artery without angina pectoris Code(s): I25.10 - Atherosclerotic heart disease of [place] coronary artery without angina pectoris Status: Acute Assessment and Plan: EKG reviewed Continue aspirin beta-shannan and statin His troponin was negative on presentation echo Summary 1. Left ventricular chamber dimension is normal. 2. Left ventricular systolic function is normal, estimated at 60-65%. 3. There is no increased left ventricular wall thickness. 4. The left ventricular diastolic function is abnormal. 5. Right ventricular chamber dimension is severely enlarged. 6. Right ventricular systolic function is reduced. 7. Linear artifact in right ventricle suggestive of catheter(s), pacemaker lead(s), or ICD lead(s). 8. Left atrial chamber dimension is mildly enlarged. 9. Right atrial chamber dimension is mildly enlarged. 10. There is mild mitral valve regurgitation. 11. There is mild tricuspid valve regurgitation. (7) Hypothyroidism: Qualifiers: Hypothyroidism type: unspecified Qualified Code(s): E03.9 - Hypothyroidism, unspecified Code(s): E03.9 - Hypothyroidism, unspecified Status: Chronic Assessment and Plan: Continue levothyroxine per tube (8) Dysphagia: Code(s): R13.10 - Dysphagia, unspecified Status: Acute Assessment and
[2021-07-22 12:16] LABS: Glucose Point of Care 84 mg/dl (65-105)
[2021-07-22] MEDS: dexmedeTOMIDine 400 MCG/100 ML 400 MCG/100 ML BAG 7.55 MCG IV CONT (12:33)
[2021-07-22 16:47] LABS: Glucose Point of Care 112 mg/dl (65-105)
[2021-07-22] MEDS: MELATONIN 3 MG TABLET PO (20:40)
[2021-07-22] MEDS: dexmedeTOMIDine 400 MCG/100 ML 400 MCG/100 ML BAG 9.44 MCG IV CONT (23:13)
[2021-07-22 23:23] LABS: Glucose Point of Care 85 mg/dl (65-105)
[2021-07-23] VITALS (40 sets, daily range): BP systolic 97–158; BP diastolic 54–86; PULSE 75–119; RESP 14–28; TEMP 36.8–38.1; O2SAT 92–97
[2021-07-23] MEDS: IPRATROPIUM BR 0.02% INH SOLN 0.5 MG/2.5 ML VIAL INHALATION ×6 (00:24→20:01)
[2021-07-23] MEDS: CENTRAL LINE FLUSH 10 ML IV PUSH ×3 (05:54→20:37)
[2021-07-23] MEDS: LEVOTHYROXINE SODIUM 50 MCG TABLET FEED TUBE (05:54)
[2021-07-23] MEDS: LEVOTHYROXINE SODIUM 12.5 MCG TABLET FEED TUBE (05:55)
[2021-07-23 06:15] LABS: Hematocrit 33.3 % (42.0-52.0); Hemoglobin 10.5 g/dL (14.0-18.0); Mean Corpuscular HGB Conc 31.5 g/dl (32-36); Mean Corpuscular Volume 101.5 fl (80-100); Mean Platelet Volume 9.8 fl (7.4-10.4); Platelet Count Result 150 k/mm3 (150-375); Red Blood Count 3.28 M/mm3 (4.6-6.20); Red Cell Distribution Width 13.1 % (11.5-14.5); White Blood Count 9.5 K/mm3 (4.5-10.0)
[2021-07-23 06:31] LABS: Alanine Aminotransferase 39 U/L (4-50); Albumin Level 2.8 g/dL (3.5-5.1); Alkaline Phosphatase 49 U/L (38-126); Anion Gap 5 mmol/L (8-16); Aspartate Amino Transferase 30 U/L (17-59); Blood Urea Nitrogen 34 mg/dL (9-20); Calcium 7.7 mg/dL (8.4-10.2); Carbon Dioxide 34 mmol/L (22-30); Chloride 95 mmol/L (98-107); Estimated CRCL calculation 81 ml/min; Estimated Glomerular Filt Rate > 60; Glucose 84 mg/dL (65-110); Magnesium 2.5 mg/dL (1.6-2.3); Potassium 3.8 mmol/L (3.4-5.0); Sodium 134 mmol/L (137-145)
[2021-07-23] MEDS: BUDESONIDE RESPULE NEB 0.5 MG/2 ML AMP INHALATION ×2 (08:04→20:02)
[2021-07-23] MEDS: ASPIRIN 81 MG CHEWABLE TABLET PO (08:32)
[2021-07-23] MEDS: FOLIC ACID 1 MG TABLET FEED TUBE (08:32)
[2021-07-23] MEDS: ENOXAPARIN 40 MG/0.4 ML SYRINGE SUB-Q (08:32)
[2021-07-23] MEDS: METOPROLOL TARTRATE 12.5 MG TABLET PO ×2 (08:33→20:36)
[2021-07-23] MEDS: amLODIPine BESYLATE 5 MG TABLET PO (08:33)
[2021-07-23] MEDS: PANTOPRAZOLE SODIUM IV 40 MG VIAL IV PUSH (08:34)
[2021-07-23] MEDS: THIAMINE HCL 100 MG TABLET FEED TUBE (08:34)
[2021-07-23] MEDS: dexmedeTOMIDine 400 MCG/100 ML 400 MCG/100 ML BAG 9.44 MCG IV CONT (08:41)
--- NOTE | 2021-07-23 09:30 | WPDINTPN ---
Progress Note: A&P Assessment and Plan (1) Acute respiratory failure with hypoxia and hypercapnia: Code(s): J96.01 - Acute respiratory failure with hypoxia; J96.02 - Acute respiratory failure with hypercapnia Status: Acute Assessment and Plan: Secondary to acute exacerbation of COPD 07/06 placed on BiPAP and was on BiPAP intermittently. 07/09 BiPAP was changed to AVAPS and repeat ABG was improved. 07/09 intubated in the afternoon -07/17: Extubated successfully to BiPAP Most recent ABG and chest x-ray reviewed patient has been needing intermittent use of BiPAP through the day and continuous BiPAP through the night. he was transition to nasal cannula this morning but he only lasted 1 hour he himself starts asking for BiPAP mask stating that he can not breathe. He is on Precedex infusion to counter any anxiety or agitation. Patient has become essentially BiPAP dependent. I will try Airvo to see if I can wean him off of BiPAP. I will discuss with patient's and patient again today when she comes to see him. At this point I do not see any other option except either re-intubation and tracheostomy for or revisiting hospice care He is off systemic steroids now and will continue inhaled steroid Precedex infusion Continue bronchodilators Patient has thick yellow to sandoval colored secretions from the ET tube. Antibiotics switched to vancomycin and cefepime (07/14), patient also on Pulmozyme -07/14: repeat sputum culture negative for now -07/06: Blood and sputum cultures are negative Patient has completed course of antibiotics COVID PCR was negative Upper and lower extremity swelling is improved with diuresis (2) COPD exacerbation: Code(s): J44.1 - Chronic obstructive pulmonary disease with (acute) exacerbation Status: Acute Assessment and Plan: See above (3) Chronic hyponatremia: Code(s): E87.1 - Hypo-osmolality and hyponatremia Status: Acute Assessment and Plan: Sodium stable IV fluids were discontinued on 07/11 Monitor sodium and intake/output TSH within normal limits (4) Alcohol withdrawal: Code(s): F10.239 - Alcohol dependence with withdrawal, unspecified Status: Acute Assessment and Plan: Patient was initially transferred to ICU due to alcohol withdrawal which was worsening his respiratory failure Currently off Precedex. Continue thiamine and folic acid (5) Hypertension: Qualifiers: Hypertension type: unspecified Qualified Code(s): I10 - Essential (primary) hypertension Code(s): I10 - Essential (primary) hypertension Status: Chronic Assessment and Plan: Patient now hypertensive, continue amlodipine and metoprolol -continue p.r.n. labetalol and hydralazine (6) CAD (coronary artery disease): Qualifiers: Associated angina: without angina Coronary Disease-Associated Artery/Lesion type: [place] artery [place] vs. transplanted heart: [place] heart Qualified Code(s): I25.10 - Atherosclerotic heart disease of [place] coronary artery without angina pectoris Code(s): I25.10 - Atherosclerotic heart disease of [place] coronary artery without angina pectoris Status: Acute Assessment and Plan: EKG reviewed Continue aspirin beta-shannan and statin His troponin was negative on presentation echo Summary 1. Left ventricular chamber dimension is normal. 2. Left ventricular systolic function is normal, estimated at 60-65%. 3. There is no increased left ventricular wall thickness. 4. The left ventricular diastolic function is abnormal. 5. Right ventricular chamber dimension is severely enlarged. 6. Right ventricular systolic function is reduced. 7. Linear artifact in right ventricle suggestive of catheter(s), pacemaker lead(s), or ICD lead(s). 8. Left atrial chamber dimension is mildly enlarged. 9. Right atrial chamber dimension is mildly enlarged. 10. There is mild mitral valve re
--- NOTE | 2021-07-23 11:21 | PC.NURSE ---
Patient returned to Bipap per his request.
[2021-07-23 12:39] LABS: Glucose Point of Care 105 mg/dl (65-105)
--- NOTE | 2021-07-23 12:53 | PC.NURSE ---
DANNY Hearn from [facility] completed assessment with patient and family. Family has signed consents for hospice care. Plan to get Bipap set up at home and for patient to be discharged home on hospice on 07/24/21.
[2021-07-23 16:56] LABS: Glucose Point of Care 95 mg/dl (65-105)
[2021-07-23] MEDS: LORazepam INJ (*CRX) 2 MG/ML VIAL 1 MG IV PUSH (17:51)
[2021-07-23] MEDS: MELATONIN 3 MG TABLET PO (20:36)
[2021-07-23] MEDS: dexmedeTOMIDine 400 MCG/100 ML 400 MCG/100 ML BAG IV CONT (22:25)
[2021-07-24] VITALS (19 sets, daily range): BP systolic 92–118; BP diastolic 51–67; PULSE 75–97; RESP 17–24; TEMP 36.3–38.2; O2SAT 96–98
[2021-07-24] MEDS: IPRATROPIUM BR 0.02% INH SOLN 0.5 MG/2.5 ML VIAL INHALATION ×4 (00:30→11:00)
[2021-07-24] MEDS: ACETAMINOPHEN ELIXIR 325 MG/10.15 ML UDC 650 MG PO (00:58)
[2021-07-24 01:32] LABS: Glucose Point of Care 95 mg/dl (65-105)
[2021-07-24] MEDS: LEVOTHYROXINE SODIUM 50 MCG TABLET FEED TUBE (05:50)
[2021-07-24] MEDS: dexmedeTOMIDine 400 MCG/100 ML 400 MCG/100 ML BAG 7.41 MCG IV CONT (05:50)
[2021-07-24] MEDS: LEVOTHYROXINE SODIUM 12.5 MCG TABLET FEED TUBE (05:51)
[2021-07-24] MEDS: CENTRAL LINE FLUSH 10 ML IV PUSH (05:51)
[2021-07-24 05:56] LABS: Glucose Point of Care 122 mg/dl (65-105)
[2021-07-24] MEDS: FOLIC ACID 1 MG TABLET FEED TUBE (08:01)
[2021-07-24] MEDS: ENOXAPARIN 40 MG/0.4 ML SYRINGE SUB-Q (08:01)
[2021-07-24] MEDS: amLODIPine BESYLATE 5 MG TABLET PO (08:01)
[2021-07-24] MEDS: ASPIRIN 81 MG CHEWABLE TABLET PO (08:01)
[2021-07-24] MEDS: THIAMINE HCL 100 MG TABLET FEED TUBE (08:01)
[2021-07-24] MEDS: PANTOPRAZOLE SODIUM IV 40 MG VIAL IV PUSH (08:01)
[2021-07-24] MEDS: METOPROLOL TARTRATE 12.5 MG TABLET PO (08:02)
[2021-07-24] MEDS: BUDESONIDE RESPULE NEB 0.5 MG/2 ML AMP INHALATION (08:05)
--- NOTE | 2021-07-24 08:42 | WPDINTPN ---
Progress Note: A&P Assessment and Plan (1) Acute respiratory failure with hypoxia and hypercapnia: Code(s): J96.01 - Acute respiratory failure with hypoxia; J96.02 - Acute respiratory failure with hypercapnia Status: Acute Assessment and Plan: Secondary to acute exacerbation of COPD 07/06 placed on BiPAP and was on BiPAP intermittently. 07/09 BiPAP was changed to AVAPS and repeat ABG was improved. 07/09 intubated in the afternoon -07/17: Extubated successfully to BiPAP Most recent ABG and chest x-ray reviewed patient has been needing intermittent use of BiPAP through the day and continuous BiPAP through the night. Patient has become essentially BiPAP dependent. See below He is off systemic steroids now and will continue inhaled steroid Precedex infusion discontinued this morning Continue bronchodilators Patient has thick yellow to sandoval colored secretions from the ET tube. Antibiotics switched to vancomycin and cefepime (07/14), patient also on Pulmozyme -07/14: repeat sputum culture negative for now -07/06: Blood and sputum cultures are negative Patient has completed course of antibiotics COVID PCR was negative Upper and lower extremity swelling is improved with diuresis (2) COPD exacerbation: Code(s): J44.1 - Chronic obstructive pulmonary disease with (acute) exacerbation Status: Acute Assessment and Plan: See above (3) Chronic hyponatremia: Code(s): E87.1 - Hypo-osmolality and hyponatremia Status: Acute Assessment and Plan: Sodium stable IV fluids were discontinued on 07/11 Monitor sodium and intake/output TSH within normal limits (4) Alcohol withdrawal: Code(s): F10.239 - Alcohol dependence with withdrawal, unspecified Status: Acute Assessment and Plan: Patient was initially transferred to ICU due to alcohol withdrawal which was worsening his respiratory failure Currently off Precedex. Continue thiamine and folic acid (5) Hypertension: Qualifiers: Hypertension type: unspecified Qualified Code(s): I10 - Essential (primary) hypertension Code(s): I10 - Essential (primary) hypertension Status: Chronic Assessment and Plan: Patient now hypertensive, continue amlodipine and metoprolol -continue p.r.n. labetalol and hydralazine (6) CAD (coronary artery disease): Qualifiers: Coronary Disease-Associated Artery/Lesion type: [place] artery [place] vs. transplanted heart: [place] heart Associated angina: without angina Qualified Code(s): I25.10 - Atherosclerotic heart disease of [place] coronary artery without angina pectoris Code(s): I25.10 - Atherosclerotic heart disease of [place] coronary artery without angina pectoris Status: Acute Assessment and Plan: EKG reviewed Continue aspirin beta-shannan and statin His troponin was negative on presentation echo Summary 1. Left ventricular chamber dimension is normal. 2. Left ventricular systolic function is normal, estimated at 60-65%. 3. There is no increased left ventricular wall thickness. 4. The left ventricular diastolic function is abnormal. 5. Right ventricular chamber dimension is severely enlarged. 6. Right ventricular systolic function is reduced. 7. Linear artifact in right ventricle suggestive of catheter(s), pacemaker lead(s), or ICD lead(s). 8. Left atrial chamber dimension is mildly enlarged. 9. Right atrial chamber dimension is mildly enlarged. 10. There is mild mitral valve regurgitation. 11. There is mild tricuspid valve regurgitation. (7) Hypothyroidism: Qualifiers: Hypothyroidism type: unspecified Qualified Code(s): E03.9 - Hypothyroidism, unspecified Code(s): E03.9 - Hypothyroidism, unspecified Status: Chronic Assessment and Plan: Continue levothyroxine per tube (8) Dysphagia: Code(s): R13.10 - Dysphagia, unspecified Status: Acute Assessment and
[2021-07-24] MEDS: LORazepam INJ (*CRX) 2 MG/ML VIAL 1 MG IV PUSH ×2 (10:56→15:08)
--- NOTE | 2021-07-24 11:16 | PM.DS ---
DS: Admitting Diagnosis Discharge Date July 24, 2021 Admitting Diagnosis Shortness of breath DS: Discharge Diagnosis Discharge Diagnosis (1) Acute respiratory failure with hypoxia and hypercapnia: Code(s): J96.01 - Acute respiratory failure with hypoxia; J96.02 - Acute respiratory failure with hypercapnia Status: Acute (2) COPD (chronic obstructive pulmonary disease): Qualifiers: COPD type: unspecified COPD Qualified Code(s): J44.9 - Chronic obstructive pulmonary disease, unspecified Code(s): J44.9 - Chronic obstructive pulmonary disease, unspecified Status: Acute DS: Summary Hospital Course Reason for hospitalization: Shortness of breath Hospital Course: 76-year-old male past medical history significant for COPD, hyperlipidemia, hypertension is presenting with shortness of breath. He states he has had a progressively worsening cough and increased wheezing over the last several days. He is not on oxygen at home. He did try to use some inhalers but this did not seem to help. Patient required BiPAP and chest x-ray showed hyperinflation consistent with severe COPD. He was started on steroids, azithromycin ceftriaxone for possible community-acquired pneumonia. Blood and sputum cultures were ordered. He was unable to be weaned off of the BiPAP and so Pulmonary was consulted. He was noted to develop hyponatremia and thought to have significant alcohol use outpatient. He is placed on a CIWA protocol and eventually noted to have escalating CIWA results. Therefore, he was moved to the ICU on a Precedex drip. He was also placed on thiamine and folic acid. Pitch Flaker was on board while he was in the ICU and also trialed Lasix with little results. He was thought to be in DTs while in the ICU and was monitored very closely in guarded condition. Sodium slowly improved with gentle hydration. Due to his history of heart disease, he was continued on his aspirin, beta-shannan and statin. Precedex drip was attempted to be weaned and he was given p.r.n. Ativan based on his CIWA score. Despite supportive care with BiPAP, ABG continued to worsen with hypercapnia. Blood and sputum cultures did come back negative, antibiotics of Rocephin and azithromycin will were continued. Due to patient's significantly worsening respiratory status, he was intubated. Prior to intubation, when discussed severe respiratory distress with family and patient at bedside, they had both stated they wanted DNR and no intubation or ventilation. However, a few hours later, when his symptoms became significantly worse, he did requested to patient. Completed his course of Rocephin azithromycin. However, he started developing thick secretions from the ET tube in was placed on vancomycin and cefepime as well as Pulmozyme. He was unable to eat and so he was fed via tube while intubated. He was able to be extubated to BiPAP but unable to be weaned from the BiPAP. Over time, it became obvious that the patient was going to be BiPAP dependent. Therefore, the discussion of the trach tube and a PEG tube were discussed as well as discharge to LTAC. Family decided for hospice care and did not want trach and PEG tube. Patient was discharged home with hospice care on June 24, 2021. Medication log: Azithromycin and ceftriaxone from July 06 until July 14. Vancomycin and cefepime from July 14 until July 19. Steroids were started upon admission and discontinued July 20. Status at Discharge Functional status at discharge: bed bound Overall status at discharge: patient is not back to baseline Time Spent with Patient Time attestation: Total time spent providing and/or coordinating discharge services: Time spent: Less than 30 minutes Exam Const: General: comfortable Resp: Auscultation: crackles, rales and diminished lung sounds Other: On BiPAP during exam, diminished lung sounds noted throughout, some crackles and rales noted GI: GI Palp: Yes Soft
--- NOTE | 2021-07-24 11:32 | PCFNICU ---
ICU Rounding Note: Pt current nutrition is NPO. Last recorded weight is 72.8 kg, up from 70.8 kg on admit. Bowel Motility: +BM reported 07/21 Labs Reviewed: No reported labs today. Meds Noted:Thiamine, Lopressor, Norvasc, Folic Acid, Lovenox, Xopenex, Synthroid, Atrovent ,Ativan. Skin: WNL Additional Notes: Patient is NPO. Plans for home with Hospice today. No further nutritional interventions needed.
--- NOTE | 2021-07-24 11:45 | PC.NURSE ---
Dobhoff removed without complication. Patient tolerated well.
[2021-07-24] MEDS: MORPHINE SULFATE (*CRX) 2 MG/ML INJ IV PUSH (16:16)
--- NOTE | 2021-07-24 16:25 | PC.NURSE ---
PICC line discontinued without complication.
--- NOTE | 2021-07-24 16:40 | PCDIET ---
Patient discharged to home with hospice. Patient left floor with [facility]. Patient denied shortness of breath at the time of discharge. Angelina notified that patient was en route to home, and patient spouse, Harika, notified that patient was en route to home.
== END 2021-07-24 16:35 | disposition hospice, home (50) | DRG 207 ==
LOC: ANHED 07:42 → ANHIMU 08:22 → ANHICU 07-07 17:42
PROVIDERS: Emergency Medicine; Internal Medicine; Nurse Practitioner; Admitting Provider Family Medicine; Emergency Provider General Practice; PCP Internal Medicine; Visit Provider Student in an Organized Health Care Education/Training Program
DX: J44.1 Chronic obstructive pulmonary disease with (acute) exacerbation (principal); J96.01 Acute respiratory failure with hypoxia; J96.02 Acute respiratory failure with hypercapnia; E87.1 Hypo-osmolality and hyponatremia; F10.239 Alcohol dependence with withdrawal, unspecified; Z20.822 Contact with and (suspected) exposure to COVID-19; I25.10 Atherosclerotic heart disease of native coronary artery without angina pectoris; E03.9 Hypothyroidism, unspecified; I95.9 Hypotension, unspecified; R13.10 Dysphagia, unspecified; Z66 Do not resuscitate; Z95.1 Presence of aortocoronary bypass graft; Z87.891 Personal history of nicotine dependence; Z79.01 Long term (current) use of anticoagulants; I25.2 Old myocardial infarction; Z95.0 Presence of cardiac pacemaker; Z79.82 Long term (current) use of aspirin; Z51.5 Encounter for palliative care
CPT/HCPCS: 31500; 36415; 36569; 36600; 43752; 71045; 71250; 74018; 80048; 80053; 80069; 80202; 82375; 82805; 82948; 83050; 83605; 83735; 83880; 84100; 84443; 84484; 85025; 85027; 85610; 85730; 87040; 87070; 87205; 92610; 92611; 93005; 93971; 94002; 94003; 94640; 94660; 97110; 97162; 97166; 99285; A9270; C1751; C8929; C9113; C9803; J0131; J0330; J0360; J0456; J0610; J0692; J0696; J1650; J1815; J1940; J2060; J2250; J2270; J2765; J2920; J2930; J3010; J3370; J3411; J7030; P9047; Q9957; U0003; U0005